=== PATIENT | male | born 1960 | race Caucasian/White ===

== ENCOUNTER 2016-03-01 19:39 | Inpatient (IN) ==
[2016-03-01 20:47] LABS: Hematocrit 40.1 % (37.5-50.1); Hemoglobin 13.8 g/dL (12.9-16.9); Mean Corpuscular HGB Conc 34.4 g/dL (31.6-35.5); Mean Corpuscular Hemoglobin 28.8 pg (28.0-33.3); Mean Corpuscular Volume 83.5 fL (83.0-100.0); Mean Platelet Volume 9.1 fL (9.4-12.4); Platelet Count 323 K/mcL (140-400)
[2016-03-01 20:53] LABS: INR 1.3; Prothrombin Time 13.6 Seconds (9.4-12.1)
[2016-03-01 20:55] LABS: Activated Partial Thrombo Time 28.7 Seconds (26.0-36.0)
[2016-03-01 21:01] LABS: BUN/Creatinine Ratio 11 (6-26); Blood Urea Nitrogen 9 mg/dL (8-26); Calcium 8.9 mg/dL (8.6-10.8); Carbon Dioxide 22 mEq/L (19-29); Chloride 102 mEq/L (98-109); Glucose 113 mg/dL (70-99); Lipase < 4 Units/L (8-78); Osmolality,Calculated 283 (280-300); Potassium 3.5 mEq/L (3.5-4.5); Sodium 137 mEq/L (136-145); eGFR For African Americans > 60 (> 60); eGFR For Non-African Americans > 60 (> 60)
[2016-03-01 21:18] LABS: Basophils # 0.2 K/mcL (0.0-0.2); Eosinophils # 1.2 K/mcL (0.0-0.6); Lymphocytes # 3.4 K/mcL (0.6-4.6); Monocytes # 0.7 K/mcL (0.0-1.3); Neutrophils # 6.5 K/mcL (1.6-8.9)
[2016-03-01 21:20] LABS: Platelet Estimate Normal (Normal)
[2016-03-01] MEDS ORDERED: *HR* HYDROmorphone (PF) 1 MG/ML SYRINGE IV ONE (21:29)
[2016-03-01] MEDS ORDERED: Ondansetron 4 MG/2 ML VIAL IV ONE (21:29)
[2016-03-01] MEDS ORDERED: 0.9 % Sodium Chloride 1,000 ML IVC ONE (21:30)
--- NOTE | 2016-03-01 21:54 | Emergency Department Note ---
Disposition Clinical Impression: Lower gastrointestinal hemorrhage, Ulcerative colitis Abdominal pain Qualifiers: Abdominal location: generalized Qualified Code(s): R10.84 - Generalized abdominal pain Disposition: Admitted As Inpatient Referrals: Pastora Gar CNP [Primary Care Provider] - Forms: Work/School Release, ED Satisfaction Letter GI Bleed HPI - General Chief complaint: ED GI Bleed Stated complaint: Rectal bleed, abd pain Time Seen by Provider: 03/01/16 19:56 Source: patient Limitations: no limitations Nursing Notes Reviewed: Yes Vital Signs Reviewed: Yes - History of Present Illness Pt Subjective Complaint: gross bloody stools Onset (ago): day(s) (5) Consistency: intermittent, Worsening Severity: moderate Improves with: nothing Worsens with: nothing Associated symptoms: Reports: abdominal pain - Related Data Home Medications Medication Instructions Recorded Confirmed Sulfasalazine [Azulfidine] 500 mg PO TID 02/23/15 02/23/15 Previous Rx's Medication Instructions Recorded Hydrocodone/Acetaminophen [[place] 1 tab PO Q4H PRN #15 tab 02/26/16 5-325 Tablet] Peg 3350/Na Sulf,Bicarb,Cl/KCl 240 ml PO Q1-2H #4000 soln.recon 02/26/16 [Golytely Solution] Allergies Allergy/AdvReac Type Severity Reaction Status Date / Time sulfamethoxazole Allergy Rash Verified 02/26/16 19:57 [From Bactrim] trimethoprim [From Bactrim] Allergy Rash Verified 02/26/16 19:57 All systems ED: reviewed and negative except as stated. Constitutional: Denies: fever, weight change Gastrointestinal: Reports: abdominal pain Past Medical History - Past Medical History Source: patient, old records reviewed, nursing notes reviewed Medical history: Reports: cirrhosis, other Surgical history: Reports: no surgical history Psychiatric history: Reports: no psych history - Social History Smoking Status: Never smoker Smokeless Tobacco Status: Yes Alcohol use: Reports: none Drug use: Reports: none Physical Exam - General Limitations: no limitations General appearance: alert, in no apparent distress - Abdominal Exam Abdominal exam: Present: soft, tenderness, normal bowel sounds. Absent: guarding, rebound Abdominal tenderness: Present: diffuse, moderate - Rectal Exam Rectal exam: Present: bloody stool, other (Anal fissures) Course - Consultations Consultation #1: dr. watkins to admit Time: 22:48 Vital Signs Temperature 97.6 F 03/01/16 19:49 Pulse Rate 65 03/01/16 19:49 Respiratory Rate 18 03/01/16 19:49 Blood Pressure 152/85 03/01/16 19:49 O2 Sat by Pulse Oximetry 96 03/01/16 19:49 Temperature 97.6 F 03/01/16 19:49 Pulse Rate 99 03/01/16 22:39 Respiratory Rate 20 03/01/16 22:39 Blood Pressure 115/66 03/01/16 22:39 O2 Sat by Pulse Oximetry 95 03/01/16 22:39 Oxygen Delivery Oxygen Delivery Room Air GI Bleed - Differential Diagnosis Likely: hemorrhoids, gastritis, Lower gastrointestinal hemorrhage, hematochezia , melena, anal fissure - Medical Records Medical records reviewed: Yes I reviewed the patient's medical records. - Lab Data Lab results reviewed: Yes I reviewed the patient's lab results. Result diagrams: 03/01/16 20:42 03/01/16 20:42 Lab Results 03/01/16 03/01/16 03/01/16 Range/Units 20:42 20:42 20:42 WBC 12.1 H (4.3-11.1) K/mcL RBC 4.80 (4.19-5.50) M/mcL Hgb 13.8 (12.9-16.9) g/dL Hct 40.1 (37.5-50.1) % MCV 83.5 (83.0-100.0) fL MCH 28.8 (28.0-33.3) pg MCHC 34.4 (31.6-35.5) g/dL RDW 14.0 (11.5-14.5) % Plt Count 323 (140-400) K/mcL MPV 9.1 L (9.4-12.4) fL Seg Neutrophils % 46.0 % Band Neutrophils % 8.0 H (0-4) % Lymphocytes % 28.0 % Monocytes % 6.0 % Eosinophils % 10.0 % Basophils % 2.0 % Neutrophils # 6.5 (1.6-8.9) K/mcL Lymphocytes # 3.4 (0.6-4.6) K/mcL Monocytes # 0.7 (0.0-1.3) K/mcL Eosinophils # 1.2 H (0.0-0.6) K/mcL Basophils # 0.2 (0.0-0.2) K/mcL Platelet Estimate Normal (Normal) PT 13.6 H (9.4-12.1) Seconds INR 1.3 APTT 28.7 (26.0-36.0) Seconds Sodium 137 (136-145) mEq/L Potassium 3.5 (3.5-4.5) mEq/L Chloride 102 (98-109) mEq/L Carbon Dioxide 22 (19-29) mEq/L BUN 9 (8-26) mg/dL Creatinine 0.79 (0.72-1.25) mg/dL Est GFR ( Amer) > 60 (> 60) Est GFR (Non-Af Amer) > 60 (> 60) BUN/Creatinine Ratio 11 (6-26) Glucose 113 H (70-99) mg/dL Calculated Osmolality 283 (280-300) Calcium 8.9 (8.6-10.8) mg/dL Lipase < 4 L (8-78) Units/L - Radiology Data Radiology results reviewed: Yes I reviewed the patient's radiology results.
[2016-03-01] MEDS ORDERED: MethylPREDNISolone 40 MG/ML VIAL IVP ONE (22:16)
[2016-03-01] MEDS ORDERED: MetroNIDAZOLE 500 MG/100 ML 500 MG/100 ML BAG IVPB ONE (22:46)
--- NOTE | 2016-03-01 23:27 | Internal Med History&Physical ---
Date of Encounter: 03/02/16 Time of Encounter: 23:25 Assessment and Plan (1) Lower gastrointestinal hemorrhage Current visit: Yes Status: Acute BRBPR with severe abdominal pain intermittent the past 2-3 weeks, more frequently the past few days. Likely secondary to Ulcerative Colitis. Hgb 13.8, will trend. Started on Flagyl and Cipro. IV steroids 60mg daily. Clear liquid diet. Dr. Otero will need to be contacted Thursday when GI service returns, consult has been ordered. (2) Ulcerative colitis Current visit: Yes Status: Acute See plan above. Qualifiers: Ulcerative colitis location: unspecified ulcerative colitis location Digestive disease complication type: with rectal bleeding Qualified Code(s): K51.911 - Ulcerative colitis, unspecified with rectal bleeding (3) Chronic low back pain Current visit: Yes Status: Chronic Chronic low back pain, schedule to see Dr. Leal on 03/04/16. Qualifiers: Back pain laterality: unspecified Sciatica presence: with sciatica Sciatica laterality: sciatica of left side Qualified Code(s): M54.42 - Lumbago with sciatica, left side; G89.29 - Other chronic pain (4) Tobacco chew use Current visit: Yes Status: Chronic Chews approx 1 can per day. Denies any history of smoking tobacco. (5) DVT prophylaxis Current visit: Yes Status: Acute Heparin SQ Internal Medicine - H&P: HPI Chief complaint: Abdominal pain Admitted From: Emergency Dept Plans for Post Hospital Care: Home History of present illness: Mr. Sheets is a 55 year old male that presented to the ED for abdominal pain for 2-3 weeks with ongoing hematochezia. Patient has a pertinent history of Ulcerative Colitis, followed by Dr. Dayday Richardson in [place]. Patient denies any past hospitalization for UC other than when he was initially diagnosed approx 3 years ago. He has been maintaining on sulfasalazine as outpatient. Patient notes recent GI upset, feeling like he needs to pass a large BM, with severe abdominal cramping. He was seen in the ED on 02/24/16 and 02/26/16 for continuing abdominal pain, abdominal CT neg, given GoLytely for constipation and scheduled follow up with Surgery. Patient states at this point he is having the episodes of abdominal cramping, bleeding, with flatulence and stool approximately 10 times a day. States the pain in his lower abdomen is so tender that he hurts to sit up due to the increased pressure of his stomach. Patient also notes a fever yesterday of 101F with chills. He denies chest pain, shortness of breath. Does state he has chronic back pain, schedule to see Dr. Leal on 03/04/16. Patient received Dilaudid in the ED reducing his abdominal pain from 10/10 to 4/ 10 in severity. Past Med Surg Social Fam HX - Past Medical History Medical history: cirrhosis, other Psychiatric history: no psych history - Past Surgical History Surgical History: no surgical history - Social History Smoking Status: Never smoker Smokeless Tobacco Status: Yes Alcohol use: none Drug use: none - Family History Father Name: Davis Sheets Age: 75 Living Status: Still Living Hx Family Cardiac Disorders: No Hx Family Respiratory Disorders: No Hx Family Cancer: Yes Hx Family GI Disorders: No Hx Family Genitourinary Disorders: No Hx Family Endocrine Disorder: No Hx Family Musculoskeletal Disorders: No Hx Family Neuromuscular Disorders: No Hx Family Neurologic Disorders: No Hx Family HEENT Disorders: No Hx Family Autoimmune Disorders: No Hx Family Reproductive Disorders: No Hx Family Psychosocial Disorders: No Hx Family Medical Disorders: No Brother Cause of : CVA Hx Family Endocrine Disorder: Yes (DM) Internal Medicine - H&P: Meds Sulfasalazine [Azulfidine] 500 mg PO TID 02/23/15 [History] Hydrocodone/Acetaminophen [[place] 5-325 Tablet] 1 tab PO Q4H PRN #15 tab [Rx] Peg 3350/Na Sulf,Bicarb,Cl/KCl [Golytely Solution] 240 ml PO Q1-2H #4000 soln.recon 02/26/16 [Rx] Allergies sulfamethoxazole [From Bactrim] Allergy (Verified 02/26/16 19:57) Rash trimethoprim [From Bactrim] Allergy (Verified 02/26/16 19:57) Rash All Systems PM: A 10-system review of systems was performed and is negative for pertinent findings except as documented above in the HPI. - Constitutional Constitutional: chills, fatigue, fever(s), lethargy, malaise - EENT Eyes: no loss of vision Nose, mouth and throat: no dysphagia, no neck pain - Cardiovascular Cardiovascular ROS IM: no chest pain, no dyspnea, no syncope - Respiratory Respiratory: no cough, no dyspnea - Gastrointestinal Gastrointestinal: abdominal pain, bloating, excessive flatus, fecal incontinence , hematochezia (with frequent small amounts of stool), vomiting - Genitourinary Genitourinary ROS male: no dysuria, no flank pain - Musculoskeletal Musculoskeletal ROS IM: back pain, numbness, tingling - Integumentary Integumentary IM: no erythema, no rash - Neurological Neurological ROS: no confusion, no dizziness - Constitutional Vitals: Temp Pulse Resp BP Pulse Ox 97.6 F 99 18 115/66 95 03/01/16 19:49 03/01/16 22:39 03/01/16 23:05 03/01/16 23:05 03/01/16 22:39 General appearance: Present: cooperative, mild distress, A&O X 3, no acute distress, answers questions appropriately - Head Head exam: Present: atraumatic, normocephalic - Eye Eye exam: Present: EOMI, PERRL, conjuntiva pink, sclera anicteric Pupils: Present: PERRL - Neck Neck exam general surgery: Present: full ROM, supple, trachea midline - Respiratory Respiratory exam: Present: CTAB. Absent: accessory muscle use, chest wall tenderness, rales, rhonchi, wheezes - Cardiovascular Cardiovascular exam: Present: RRR, +S1, +S2. Absent: diastolic murmur, gallop, rubs, systolic murmur - GI/Abdominal GI/Abdominal exam: Present: distended, normal bowel sounds, soft, tenderness ( tender to palpation in the LUQ and acutely tender across the underside of distended abd (LLQ, RLQ)), no peritoneal signs. Absent: guarding - Extremities Exam Extremities exam: Present: warm. Absent: calf tenderness, cyanotic, pedal edema - Neurological Exam Neurological exam: Present: alert, oriented X3, no focal deficits. Absent: facial droop, speech deficit - Skin Skin exam: Present: dry, intact Internal Med - H&P Results - Labs CBC & Chem 7: 03/01/16 20:42 03/01/16 20:42
[2016-03-01] MEDS ORDERED: Ondansetron 4 MG/2 ML VIAL IVP PRN (23:42)
[2016-03-01] MEDS ORDERED: Naloxone 0.4 MG/ML INJ IVP PRN (23:42)
[2016-03-02] MEDS ORDERED: MethylPREDNISolone 40 MG/ML VIAL IVP SCH
[2016-03-02] MEDS: 0.9 % Sodium Chloride 1,000 ML IVC SCH ×3 (00:05→17:07)
[2016-03-02] MEDS: MetroNIDAZOLE 500 MG/100 ML 500 MG/100 ML BAG IVPB SCH ×3 (00:06→17:08)
[2016-03-02] MEDS ORDERED: methylPREDNISolone 125 MG/2 ML VIAL IVP ONE (00:55)
[2016-03-02] MEDS ORDERED: Acetaminophen 325 MG TABLET PO PRN (00:58)
[2016-03-02] MEDS ORDERED: MethylPREDNISolone 40 MG/ML VIAL IVP ONE (01:21)
[2016-03-02 05:49] LABS: Basophils % 0.3 %; Eosinophils % 0.1 %; Hematocrit 38.8 % (37.5-50.1); Immature Granulocytes % 0.6 % (0-4); Lymphocytes # 0.5 K/mcL (0.6-4.6); Lymphocytes % 4.9 %; Mean Corpuscular HGB Conc 33.5 g/dL (31.6-35.5); Mean Corpuscular Hemoglobin 28.6 pg (28.0-33.3); Mean Corpuscular Volume 85.5 fL (83.0-100.0); Mean Platelet Volume 9.4 fL (9.4-12.4); Monocytes # 0.3 K/mcL (0.0-1.3); Monocytes % 3.3 %; Neutrophils # 8.5 K/mcL (1.6-8.9); Platelet Count 289 K/mcL (140-400); Red Blood Count 4.54 M/mcL (4.19-5.50); Red Cell Distribution Width 13.9 % (11.5-14.5); Segmented Neutrophils % 90.8 %
[2016-03-02 05:55] LABS: INR 1.3; Prothrombin Time 14.4 Seconds (9.4-12.1)
[2016-03-02 05:57] LABS: Activated Partial Thrombo Time 29.1 Seconds (26.0-36.0)
[2016-03-02] MEDS ORDERED: *HR* Heparin 5,000 UNIT/ML VIAL SQ SCH ×2 (06:00→08:00)
[2016-03-02 06:02] LABS: BUN/Creatinine Ratio 14 (6-26); Blood Urea Nitrogen 10 mg/dL (8-26); Calcium 8.3 mg/dL (8.6-10.8); Carbon Dioxide 20 mEq/L (19-29); Chloride 106 mEq/L (98-109); Glucose 157 mg/dL (70-99); Osmolality,Calculated 286 (280-300); Potassium 3.4 mEq/L (3.5-4.5); Sodium 137 mEq/L (136-145); eGFR For African Americans > 60 (> 60); eGFR For Non-African Americans > 60 (> 60)
[2016-03-02 06:11] LABS: Platelet Estimate Normal (Normal)
[2016-03-02] MEDS: Pantoprazole 40 MG VIAL IVP SCH ×2 (07:33→17:09)
[2016-03-02] MEDS: MethylPREDNISolone 40 MG/ML VIAL IVP SCH (07:34)
[2016-03-02] MEDS: sulfaSALAzine 500 MG TABLET PO SCH ×3 (07:35→20:56)
[2016-03-02] MEDS: *HR* HYDROcodone/Acet 5/325 mg TABLET PO PRN ×2 (07:57→20:55)
--- NOTE | 2016-03-02 15:41 | Internal Med Progress Note ---
Date of Encounter: 03/02/16 Time of Encounter: 10:00 - Assessment and plan (1) Abdominal pain Current Visit: Yes Status: Acute Assessment and plan: Consider ulcerative colitis flare. Will give IV fluid, IV antibiotic, steroid treatment. Continue sulfasalazine. Qualifiers: Abdominal location: generalized Qualified Code(s): R10.84 - Generalized abdominal pain (2) Lower gastrointestinal hemorrhage Current Visit: Yes Status: Acute Assessment and plan: Possibly due to ulcerative colitis flare. We will closely monitor vitals and hemoglobin change (3) Ulcerative colitis Current Visit: Yes Status: Acute Assessment and plan: Treatment and plan as above Qualifiers: Ulcerative colitis location: unspecified ulcerative colitis location Digestive disease complication type: with rectal bleeding Qualified Code(s): K51.911 - Ulcerative colitis, unspecified with rectal bleeding (4) DVT prophylaxis Current Visit: Yes Status: Acute Assessment and plan: EPCD. No anticoagulation because patient has rectal bleeding. - Time Spent With Patient 25 - 35 minutes - Subjective Interval history: Patient is a 55-year-old male admitted for abdominal pain and rectal bleeding. His past medical history is significant for Ulcerative colitis. I saw and examined the patient today. He still complaining of abdominal pain, no bowel movement since last night. No nausea, no vomiting. Denies lightheaded. Vital signs stable. Hemoglobin is stable. We will continue antibiotic, IV steroids, and sulfasalazine. - Constitutional Vitals: Temp Pulse Resp BP Pulse Ox 98.2 F 75 17 123/71 98 03/02/16 11:25 03/02/16 11:25 03/02/16 11:25 03/02/16 11:25 03/02/16 11:25 General appearance: Present: cooperative, mild distress, A&O X 3, no acute distress, answers questions appropriately - Head Head exam: Present: atraumatic, normocephalic - Eye Eye exam: Present: PERRL, conjuntiva pink, sclera anicteric Pupils: Present: PERRL - Neck Neck exam general surgery: Present: supple, trachea midline. Absent: lymphadenopathy - Respiratory Respiratory exam: Present: CTAB. Absent: accessory muscle use, rales, rhonchi, wheezes - Cardiovascular Cardiovascular exam: Present: RRR, +S1, +S2. Absent: diastolic murmur, gallop, rubs, systolic murmur - GI/Abdominal GI/Abdominal exam: Present: normal bowel sounds, soft, tenderness (Mild tenderness in lower abdominal area, no rebound or guarding), no peritoneal signs. Absent: distended - Extremities Exam Extremities exam: Present: warm, radial pulses palpable and symetrical. Absent : calf tenderness, cyanotic, pedal edema - Neurological Exam Neurological exam: Present: CN II-XII intact, oriented X3, no focal deficits. Absent: pronater drift, facial droop, speech deficit - Skin Skin exam: Present: dry, intact Internal Medicine: Result - Labs CBC & Chem 7: 03/02/16 05:35 03/02/16 05:35 Labs: Short CBC 03/02/16 Range/Units 05:35 WBC 9.4 (4.3-11.1) K/mcL Hgb 13.0 (12.9-16.9) g/dL Hct 38.8 (37.5-50.1) % Plt Count 289 (140-400) K/mcL Neutrophils # 8.5 (1.6-8.9) K/mcL BMP 03/02/16 05:35 Sodium 137 Potassium 3.4 L Chloride 106 Carbon Dioxide 20 BUN 10 Creatinine 0.74 Glucose 157 H Calcium 8.3 L - ABG Interpretation ABG results: PT/INR, D-dimer PT 14.4 Seconds (9.4-12.1) H 03/02/16 05:35 - VTE Reasons for not Prescribing Prophylaxis: Treatment not Indicated - Low risk for VTE Consult Discharge Plan - Plan Referrals: Pastora Gar HAND PATTERN MARKER [Primary Care Provider] -
[2016-03-02] MEDS ORDERED: Potassium Chloride Elixir 20 MEQ/15 ML UDC PO ONE (16:23)
[2016-03-03] MEDS: *HR* HYDROmorphone (PF) 1 MG/ML SYRINGE IVP PRN ×4 (00:36→21:17)
[2016-03-03] MEDS: MetroNIDAZOLE 500 MG/100 ML 500 MG/100 ML BAG IVPB SCH ×4 (00:37→23:55)
[2016-03-03 05:30] LABS: Hematocrit 38.7 % (37.5-50.1); Hemoglobin 12.8 g/dL (12.9-16.9); Lymphocytes # 1.1 K/mcL (0.6-4.6); Mean Corpuscular HGB Conc 33.1 g/dL (31.6-35.5); Mean Corpuscular Hemoglobin 28.8 pg (28.0-33.3); Mean Platelet Volume 9.7 fL (9.4-12.4); Platelet Count 325 K/mcL (140-400); Red Blood Count 4.45 M/mcL (4.19-5.50); Red Cell Distribution Width 14.1 % (11.5-14.5)
[2016-03-03 05:51] LABS: BUN/Creatinine Ratio 13 (6-26); Blood Urea Nitrogen 10 mg/dL (8-26); Calcium 8.1 mg/dL (8.6-10.8); Carbon Dioxide 24 mEq/L (19-29); Chloride 108 mEq/L (98-109); Glucose 94 mg/dL (70-99); Osmolality,Calculated 291 (280-300); Potassium 3.2 mEq/L (3.5-4.5); Sodium 141 mEq/L (136-145); eGFR For African Americans > 60 (> 60); eGFR For Non-African Americans > 60 (> 60)
[2016-03-03 06:07] LABS: Neutrophils # 6.7 K/mcL (1.6-8.9); Platelet Estimate Normal (Normal)
[2016-03-03] MEDS: 0.9 % Sodium Chloride 1,000 ML IVC SCH ×3 (06:45→17:26)
[2016-03-03] MEDS: Pantoprazole 40 MG VIAL IVP SCH ×2 (06:53→17:26)
[2016-03-03] MEDS ORDERED: Potassium Chloride Elixir 20 MEQ/15 ML UDC PO ONE (07:27)
[2016-03-03] MEDS: MethylPREDNISolone 40 MG/ML VIAL IVP SCH (09:28)
[2016-03-03] MEDS: *HR* HYDROcodone/Acet 5/325 mg TABLET PO PRN ×2 (09:28→17:25)
[2016-03-03] MEDS: sulfaSALAzine 500 MG TABLET PO SCH ×3 (09:28→21:17)
--- NOTE | 2016-03-03 09:46 | Gastroenterology Consult Note ---
<Fara Cat - Last Filed: 03/03/16 14:01> Date of Encounter: 03/03/16 Time of Encounter: 11:30 - Assessment and plan (1) Hematochezia Current Visit: Yes Status: Acute Assessment and plan: UC flare, evidence of anal fissure with underlying constipation symptoms. Continue stool softener, miralax bid PRN. Patient continues to have blood per rectum today. His hgb has dropped from 15.1 to 12.8 during his hospital course. (2) Hepatic steatosis Current Visit: Yes Status: Chronic Assessment and plan: mild elevation of AST, OTPT w/u. (3) Abdominal pain Current Visit: Yes Status: Chronic Assessment and plan: 2ndary to acute UC flare, continue steroids/atbs. Patient is improving somewhat , but continues to have hematochezia, monitor hgb. Qualifiers: Abdominal location: generalized Qualified Code(s): R10.84 - Generalized abdominal pain (4) Ulcerative colitis Current Visit: Yes Status: Chronic Assessment and plan: Currently on sulfasalazine. Return to Dr. Richardson for further treatment at discharge. Continue daily steroids and atbs. Qualifiers: Ulcerative colitis location: unspecified ulcerative colitis location Digestive disease complication type: with rectal bleeding Qualified Code(s): K51.911 - Ulcerative colitis, unspecified with rectal bleeding - Time Spent With Patient Total time spent is greater than 50% in coordination of care (as documented) at patient's floor/unit and/or counseling patient: less than 15 minutes GI History of Present Illness - Data of Consult Patient: new to practice Consult date: 03/03/16 Requesting Physician: Carlota Villa MD - Consult Narrative Reason for consult: hematochezia, hx of UC History of present illness: Mr. Sheets is a 55 year old male that presented to the ED for abdominal pain for 2-3 weeks with ongoing hematochezia. Patient has a pertinent history of Ulcerative Colitis, followed by Dr. Dayday Richardson in [place]. Patient denies any past hospitalization for UC other than when he was initially diagnosed approx 3 years ago. He has been maintaining on sulfasalazine as outpatient. Patient notes recent GI upset, feeling like he needs to pass a large BM, with severe abdominal cramping. He was seen in the ED on 02/24/16 and 02/26/16 for continuing abdominal pain, abdominal CT neg, given GoLytely for constipation and scheduled follow up with Surgery. Patient states at this point he is having the episodes of abdominal cramping, bleeding, with flatulence and stool approximately 10 times a day. States the pain in his lower abdomen is so tender that he hurts to sit up due to the increased pressure of his stomach. Patient also notes a fever yesterday of 101F with chills. He denies chest pain, shortness of breath. ESR 43, CRP 121, will check fecal calpro. Currently on sulfasalazine and daily steroids, with Cipro/Flagyl. Patient states that he continues to have hematochezia, very small stool, brown in color. Blood is bright red. He states he feels very weak. Admits abdominal cramping and fever, urgency and incontinence. Colonoscopy: 1-2 years ago - [facility] EGD: ? Past Med Surg Social Fam HX - Past Medical History Medical history: cirrhosis, other Psychiatric history: no psych history - Past Surgical History Surgical History: no surgical history - Social History Smoking Status: Never smoker Smokeless Tobacco Status: Yes Alcohol use: none Drug use: none - Family History Father Name: Davis Sheets Age: 75 Living Status: Still Living Hx Family Cardiac Disorders: No Hx Family Respiratory Disorders: No Hx Family Cancer: Yes Hx Family GI Disorders: No Hx Family Genitourinary Disorders: No Hx Family Endocrine Disorder: No Hx Family Musculoskeletal Disorders: No Hx Family Neuromuscular Disorders: No Hx Family Neurologic Disorders: No Hx Family HEENT Disorders: No Hx Family Autoimmune Disorders: No Hx Family Reproductive Disorders: No Hx Family Psychosocial Disorders: No Hx Family Medical Disorders: No Brother Cause of : CVA Hx Family Endocrine Disorder: Yes (DM) - Gastrointestinal NSAID use: None noted Anticoagulation Use: None Number of BM Per Day: many Gastrointestinal: Present: abdominal pain, change in bowel habits, constipation - Constitutional Constitutional: fatigue, fever(s) - EENT Eyes: as per HPI Ears: Present: as per HPI Nose, mouth and throat: Present: as per HPI - Cardiovascular Cardiovascular ROS: Present: as per HPI - Respiratory Respiratory IM: Present: as per HPI - Neurological ROS Neurological GI: Present: weakness - Hematologic/Lymphatic Hematologic/Lymphatic pediatric: Present: as per HPI - Musculoskeletal Musculoskeletal ROS GI: Present: as per HPI - Integumentary Integumentary GI: Present: as per HPI - Psychiatric ROS Psychiatric GI: Present: as per HPI - Endocrine Endocrine IM: Present: as per HPI - Constitutional Vitals: Temp Pulse Resp BP Pulse Ox 98.6 F 84 14 107/68 98 03/03/16 09:27 03/03/16 07:17 03/03/16 07:17 03/03/16 07:17 03/03/16 07:17 Results - Labs CBC & Chem 7: 03/03/16 04:54 03/03/16 04:54 Labs: Last Result ESR 43 mm/hr (0-10) H 03/02/16 05:35 Calcium 8.1 mg/dL (8.6-10.8) L 03/03/16 04:54 C-Reactive Protein 121 mg/L (Less than 5) H 03/02/16 05:35 Entire Visit Hgb 12.8 g/dL (12.9-16.9) L 03/03/16 04:54 Hct 38.7 % (37.5-50.1) 03/03/16 04:54 PT 14.4 Seconds (9.4-12.1) H 03/02/16 05:35 Lipase < 4 Units/L (8-78) L 03/01/16 20:42 - ABG ABG results: PT/INR, D-dimer PT 14.4 Seconds (9.4-12.1) H 03/02/16 05:35 Consult Discharge Plan - Plan Referrals: Pastora Gar, [employer] [Primary Care Provider] - <Reymundo Otero - Last Filed: 03/03/16 18:29> Date of Encounter: 03/03/16 Time of Encounter: 18:00 - Time Spent With Patient Total time spent is greater than 50% in coordination of care (as documented) at patient's floor/unit and/or counseling patient: GI History of Present Illness - Data of Consult Requesting Physician: Carlota Villa MD - Consult Narrative History of present illness: Mr. Sheets is a 55 year old male - Constitutional Vitals: Temp Pulse Resp BP Pulse Ox 97.6 F 89 16 127/81 97 03/03/16 14:19 03/03/16 14:19 03/03/16 14:19 03/03/16 14:19 03/03/16 14:19 Results - Labs CBC & Chem 7: 03/03/16 04:54 03/03/16 04:54 Labs: Last Result ESR 43 mm/hr (0-10) H 03/02/16 05:35 Calcium 8.1 mg/dL (8.6-10.8) L 03/03/16 04:54 C-Reactive Protein 121 mg/L (Less than 5) H 03/02/16 05:35 Entire Visit Hgb 12.8 g/dL (12.9-16.9) L 03/03/16 04:54 Hct 38.7 % (37.5-50.1) 03/03/16 04:54 PT 14.4 Seconds (9.4-12.1) H 03/02/16 05:35 Lipase < 4 Units/L (8-78) L 03/01/16 20:42 - ABG ABG results: PT/INR, D-dimer PT 14.4 Seconds (9.4-12.1) H 03/02/16 05:35 - Attending Attestation I examined this patient and my medical decision-making was reviewed with the REGIONAL TRAINING MANAGER/PA/Advanced Practice Nurse/Resident Physician. I agree with the documented findings, disposition and treatment plan as described except to the extent set forth below. Patient with possible UC flare with bleeding. Colonoscopy in the morning.
--- NOTE | 2016-03-03 16:27 | Internal Med Progress Note ---
Date of Encounter: 03/03/16 Time of Encounter: 09:00 - Assessment and plan (1) Abdominal pain Current Visit: Yes Status: Chronic Assessment and plan: Consider ulcerative colitis flare. Will give IV fluid, IV antibiotic, steroid treatment. Continue sulfasalazine. Qualifiers: Abdominal location: generalized Qualified Code(s): R10.84 - Generalized abdominal pain (2) Lower gastrointestinal hemorrhage Current Visit: Yes Status: Acute Assessment and plan: Possibly due to ulcerative colitis flare. We will closely monitor vitals and hemoglobin change. GI consult appreciated (3) Ulcerative colitis Current Visit: Yes Status: Chronic Assessment and plan: Treatment and plan as above Qualifiers: Ulcerative colitis location: unspecified ulcerative colitis location Digestive disease complication type: with rectal bleeding Qualified Code(s): K51.911 - Ulcerative colitis, unspecified with rectal bleeding (4) DVT prophylaxis Current Visit: Yes Status: Acute Assessment and plan: EPCD. No anticoagulation because patient has rectal bleeding. - Time Spent With Patient 25 - 35 minutes - Subjective Interval history: Patient is a 55-year-old male admitted for abdominal pain and rectal bleeding. His past medical history is significant for Ulcerative colitis. I saw and examined the patient today. He still complaining of abdominal pain, twice bloody bowel movement since yesterday. No nausea, no vomiting. Denies lightheaded. Vital signs stable. Hemoglobin is slightly drop. GI consult appreciated. We will continue antibiotic, IV steroids, and sulfasalazine. - Constitutional Vitals: Temp Pulse Resp BP Pulse Ox 97.6 F 89 16 127/81 97 03/03/16 14:19 03/03/16 14:19 03/03/16 14:19 03/03/16 14:19 03/03/16 14:19 General appearance: Present: cooperative, mild distress, A&O X 3, no acute distress, answers questions appropriately - Head Head exam: Present: atraumatic, normocephalic - Eye Eye exam: Present: PERRL, conjuntiva pink, sclera anicteric Pupils: Present: PERRL - Neck Neck exam general surgery: Present: supple, trachea midline. Absent: lymphadenopathy - Respiratory Respiratory exam: Present: CTAB. Absent: accessory muscle use, rales, rhonchi, wheezes - Cardiovascular Cardiovascular exam: Present: RRR, +S1, +S2. Absent: diastolic murmur, gallop, rubs, systolic murmur - GI/Abdominal GI/Abdominal exam: Present: normal bowel sounds, soft, tenderness, no peritoneal signs. Absent: distended - Extremities Exam Extremities exam: Present: warm, radial pulses palpable and symetrical. Absent : calf tenderness, cyanotic, pedal edema - Neurological Exam Neurological exam: Present: CN II-XII intact, oriented X3, no focal deficits. Absent: pronater drift, facial droop, speech deficit - Skin Skin exam: Present: dry, intact Internal Medicine: Result - Labs CBC & Chem 7: 03/03/16 04:54 03/03/16 04:54 Labs: Short CBC 03/03/16 Range/Units 04:54 WBC 9.1 (4.3-11.1) K/mcL Hgb 12.8 L (12.9-16.9) g/dL Hct 38.7 (37.5-50.1) % Plt Count 325 (140-400) K/mcL Neutrophils # 6.7 (1.6-8.9) K/mcL BMP 03/03/16 04:54 Sodium 141 Potassium 3.2 L Chloride 108 Carbon Dioxide 24 BUN 10 Creatinine 0.77 Glucose 94 Calcium 8.1 L - ABG Interpretation ABG results: PT/INR, D-dimer PT 14.4 Seconds (9.4-12.1) H 03/02/16 05:35 - VTE Reasons for not Prescribing Prophylaxis: Treatment not Indicated - Low risk for VTE Documentation of Mechanical Device: Intermittent pneumatic compression device Consult Discharge Plan - Plan Referrals: Pastora Gar CNP [Primary Care Provider] -
[2016-03-03] MEDS ORDERED: SODIUM CHLORIDE/NAHCO3/KCL/PEG 4,000 ML SOLN.RECON PO ONE (17:57)
[2016-03-04] MEDS: *HR* HYDROcodone/Acet 5/325 mg TABLET PO PRN ×3 (00:03→22:36)
[2016-03-04] MEDS: *HR* HYDROmorphone (PF) 1 MG/ML SYRINGE IVP PRN ×3 (01:41→18:23)
[2016-03-04 05:09] LABS: Basophils % 0.4 %; Eosinophils % 0.4 %; Hematocrit 35.7 % (37.5-50.1); Hemoglobin 11.7 g/dL (12.9-16.9); Lymphocytes # 1.1 K/mcL (0.6-4.6); Lymphocytes % 13.9 %; Mean Corpuscular HGB Conc 32.8 g/dL (31.6-35.5); Mean Corpuscular Hemoglobin 27.7 pg (28.0-33.3); Mean Corpuscular Volume 84.6 fL (83.0-100.0); Mean Platelet Volume 9.2 fL (9.4-12.4); Monocytes # 1.2 K/mcL (0.0-1.3); Monocytes % 15.4 %; Neutrophils # 5.4 K/mcL (1.6-8.9); Platelet Count 326 K/mcL (140-400); Red Blood Count 4.22 M/mcL (4.19-5.50); Red Cell Distribution Width 14.2 % (11.5-14.5); Segmented Neutrophils % 68.9 %
[2016-03-04 05:20] LABS: BUN/Creatinine Ratio 10 (6-26); Blood Urea Nitrogen 7 mg/dL (8-26); Calcium 7.8 mg/dL (8.6-10.8); Carbon Dioxide 23 mEq/L (19-29); Chloride 111 mEq/L (98-109); Glucose 91 mg/dL (70-99); Osmolality,Calculated 290 (280-300); Potassium 3.1 mEq/L (3.5-4.5); Sodium 141 mEq/L (136-145); eGFR For African Americans > 60 (> 60); eGFR For Non-African Americans > 60 (> 60)
[2016-03-04 05:33] LABS: Platelet Estimate Normal (Normal); Reactive Lymphocytes Present (Not Present)
[2016-03-04] MEDS: Pantoprazole 40 MG VIAL IVP SCH ×2 (05:58→18:13)
[2016-03-04] MEDS ORDERED: Potassium Chloride Elixir 20 MEQ/15 ML UDC PO ONE (08:06)
--- NOTE | 2016-03-04 08:41 | Gastroenterology Progress Note ---
Date of Encounter: 03/04/16 Time of Encounter: 10:05 - Assessment and plan (1) Hematochezia Current Visit: Yes Status: Acute Assessment and plan: UC flare, evidence of anal fissure with underlying constipation symptoms. Continue stool softener, miralax bid PRN. Patient continues to have small amount blood per rectum today. His hgb has dropped from 15.1 to 11.7 during his hospital course. Plan for Cscope evaluation today. (2) Hepatic steatosis Current Visit: Yes Status: Chronic Assessment and plan: mild elevation of AST, OTPT w/u. (3) Abdominal pain Current Visit: Yes Status: Chronic Assessment and plan: Likely 2ndary to acute UC flare, continue steroids/atbs. Proceed with colonoscopy evaluation today. Hgb fell overnight to 11.7. Improving during hospital course per the patient. Qualifiers: Abdominal location: generalized Qualified Code(s): R10.84 - Generalized abdominal pain (4) Ulcerative colitis Current Visit: Yes Status: Chronic Assessment and plan: Currently on sulfasalazine. Return to Dr. Richardson for further treatment at discharge. Continue daily steroids and atbs. Qualifiers: Ulcerative colitis location: unspecified ulcerative colitis location Digestive disease complication type: with rectal bleeding Qualified Code(s): K51.911 - Ulcerative colitis, unspecified with rectal bleeding - Time Spent With Patient Total time spent is greater than 50% in coordination of care (as documented) at patient's floor/unit and/or counseling patient: less than 15 minutes - Subjective Interval history: Patient is a 55-year-old male admitted for abdominal pain and rectal bleeding. His past medical history is significant for Ulcerative colitis. Patient examined at bedside, resting comfortably. States completed bowel prep, not yet clear, but close. Minor amount of bleeding noted during the bowel prep. Abdominal pain has improved, but still apparent. He feels fatigued. - Constitutional Vitals: Temp Pulse Resp BP Pulse Ox 98.0 F 93 16 101/61 94 L 03/04/16 07:17 03/04/16 07:17 03/04/16 07:17 03/04/16 07:17 03/04/16 07:17 General appearance: Present: cooperative, A&O X 3, no acute distress, answers questions appropriately - Head Head exam: Present: atraumatic, normocephalic - Eye Eye exam: Present: normal appearance, sclera anicteric - ENT ENT exam: Present: mucous membranes moist - Neck Neck exam general surgery: Present: normal inspection, trachea midline - Respiratory Respiratory exam: Present: CTAB - Cardiovascular Cardiovascular exam: Present: RRR, +S1, +S2 - GI/Abdominal GI/Abdominal exam: Present: soft, tenderness, no peritoneal signs - Rectal Rectal exam: Present: deferred - Extremities Exam Extremities exam: Present: warm - Neurological Exam Neurological exam: Present: no focal deficits - Psychiatric Psychiatric exam: Present: normal affect, normal mood - Skin Skin exam: Present: dry, intact, normal color, warm Results - Labs CBC & Chem 7: 03/04/16 04:56 03/04/16 04:56 Labs: Last Result ESR 43 mm/hr (0-10) H 03/02/16 05:35 Calcium 7.8 mg/dL (8.6-10.8) L 03/04/16 04:56 C-Reactive Protein 121 mg/L (Less than 5) H 03/02/16 05:35 Entire Visit Hgb 11.7 g/dL (12.9-16.9) L 03/04/16 04:56 Hct 35.7 % (37.5-50.1) L 03/04/16 04:56 PT 14.4 Seconds (9.4-12.1) H 03/02/16 05:35 Lipase < 4 Units/L (8-78) L 03/01/16 20:42 - ABG ABG results: PT/INR, D-dimer PT 14.4 Seconds (9.4-12.1) H 03/02/16 05:35 - VTE Reasons for not Prescribing Prophylaxis: Treatment not Indicated - Low risk for VTE Documentation of Mechanical Device: Intermittent pneumatic compression device Consult Discharge Plan - Plan Referrals: Pastora Gar, GRAIN WAFER MACHINE OPERATOR [Primary Care Provider] -
[2016-03-04] MEDS: sulfaSALAzine 500 MG TABLET PO SCH ×3 (09:50→21:31)
[2016-03-04] MEDS: MetroNIDAZOLE 500 MG/100 ML 500 MG/100 ML BAG IVPB SCH ×2 (09:56→18:12)
[2016-03-04] MEDS: MethylPREDNISolone 40 MG/ML VIAL IVP SCH (09:57)
--- NOTE | 2016-03-04 15:47 | Internal Med Progress Note ---
Date of Encounter: 03/04/16 Time of Encounter: 09:00 - Assessment and plan (1) Abdominal pain Current Visit: Yes Status: Chronic Assessment and plan: Consider ulcerative colitis flare. Will give IV fluid, IV antibiotic, steroid treatment. Continue sulfasalazine. Plan for colonoscopy today Qualifiers: Abdominal location: generalized Qualified Code(s): R10.84 - Generalized abdominal pain (2) Lower gastrointestinal hemorrhage Current Visit: Yes Status: Acute Assessment and plan: Possibly due to ulcerative colitis flare. We will closely monitor vitals and hemoglobin change. GI consult appreciated. Plan for colonoscopy today (3) Ulcerative colitis Current Visit: Yes Status: Chronic Assessment and plan: Treatment and plan as above Qualifiers: Ulcerative colitis location: unspecified ulcerative colitis location Digestive disease complication type: with rectal bleeding Qualified Code(s): K51.911 - Ulcerative colitis, unspecified with rectal bleeding (4) DVT prophylaxis Current Visit: Yes Status: Acute Assessment and plan: EPCD. No anticoagulation because patient has rectal bleeding. - Time Spent With Patient 25 - 35 minutes - Subjective Interval history: Patient is a 55-year-old male admitted for abdominal pain and rectal bleeding. His past medical history is significant for Ulcerative colitis. I saw and examined the patient today. He still complaining of abdominal pain but feels much less. No nausea, no vomiting. Denies lightheaded. Vital signs stable. Hemoglobin is slightly drop. GI consult on case and plan for colonoscopy. We will continue antibiotic, IV steroids, and sulfasalazine. - Constitutional Vitals: Temp Pulse Resp BP Pulse Ox 97.7 F 79 14 104/64 94 L 03/04/16 10:59 03/04/16 10:59 03/04/16 10:59 03/04/16 10:59 03/04/16 10:59 General appearance: Present: cooperative, mild distress, A&O X 3, no acute distress, answers questions appropriately - Head Head exam: Present: atraumatic, normocephalic - Eye Eye exam: Present: PERRL, conjuntiva pink, sclera anicteric Pupils: Present: PERRL - Neck Neck exam general surgery: Present: supple, trachea midline. Absent: lymphadenopathy - Respiratory Respiratory exam: Present: CTAB. Absent: accessory muscle use, rales, rhonchi, wheezes - Cardiovascular Cardiovascular exam: Present: RRR, +S1, +S2. Absent: diastolic murmur, gallop, rubs, systolic murmur - GI/Abdominal GI/Abdominal exam: Present: normal bowel sounds, soft, tenderness, no peritoneal signs. Absent: distended - Extremities Exam Extremities exam: Present: warm, radial pulses palpable and symetrical. Absent : calf tenderness, cyanotic, pedal edema - Neurological Exam Neurological exam: Present: CN II-XII intact, oriented X3, no focal deficits. Absent: pronater drift, facial droop, speech deficit - Skin Skin exam: Present: dry, intact Internal Medicine: Result - Labs CBC & Chem 7: 03/04/16 04:56 03/04/16 04:56 Labs: Short CBC 03/04/16 Range/Units 04:56 WBC 7.8 (4.3-11.1) K/mcL Hgb 11.7 L (12.9-16.9) g/dL Hct 35.7 L (37.5-50.1) % Plt Count 326 (140-400) K/mcL Neutrophils # 5.4 (1.6-8.9) K/mcL BMP 03/04/16 04:56 Sodium 141 Potassium 3.1 L Chloride 111 H Carbon Dioxide 23 BUN 7 L Creatinine 0.71 L Glucose 91 Calcium 7.8 L - ABG Interpretation ABG results: PT/INR, D-dimer PT 14.4 Seconds (9.4-12.1) H 03/02/16 05:35 - VTE Reasons for not Prescribing Prophylaxis: Treatment not Indicated - Low risk for VTE Documentation of Mechanical Device: Intermittent pneumatic compression device Consult Discharge Plan - Plan Referrals: Pastora Gar PENAL OFFICER [Primary Care Provider] -
[2016-03-04] MEDS ORDERED: *HR* Midazolam HCl 5 MG/5 ML VIAL IVP ONE (16:10)
[2016-03-04] MEDS ORDERED: *HR* FentaNYL (PF) 100 MCG/2 ML VIAL ONE (16:11)
[2016-03-04] MEDS ORDERED: Simethicone 40 MG/0.6 ML MLS IR ONE (17:03)
[2016-03-04] MEDS: *HR* FentaNYL (PF) 100 MCG/2 ML VIAL IVP PRN ×3 (17:04→17:08)
[2016-03-04] MEDS: *HR* Midazolam HCl 5 MG/5 ML VIAL IVP PRN ×3 (17:04→17:08)
--- NOTE | 2016-03-04 17:04 | Pre-Sedation Evaluation ---
Pre-sedation evaluation - Pre-sedation checklist Date of procedure: 03/04/16 Procedure: colonoscopy Recent Vitals: Last Vital Signs Temp 97.8 F 03/04/16 16:16 Pulse 87 03/04/16 17:03 Resp 16 03/04/16 17:03 BP 130/72 03/04/16 17:03 Pulse Ox 97 03/04/16 17:03 H&P (including ROS) documented in medical record: Yes Previous reaction to sedatives/anesthetics: No Dietary Status: NPO after Midnight Dentition: dentures removed ASA Classification *see protocol: CLASS II-Mild systemic disease Plan of Care: Pt appropriate candidate for procedure/moderate/conscious sedation , Risks/benefits of procedure/sedation discussed w/ patient/family
[2016-03-04] MEDS: 0.9 % Sodium Chloride 1,000 ML IVC SCH (18:13)
[2016-03-05] MEDS: *HR* HYDROmorphone (PF) 1 MG/ML SYRINGE IVP PRN ×5 (00:42→21:51)
[2016-03-05] MEDS: MetroNIDAZOLE 500 MG/100 ML 500 MG/100 ML BAG IVPB SCH ×3 (00:42→16:53)
[2016-03-05] MEDS: 0.9 % Sodium Chloride 1,000 ML IVC SCH (05:24)
[2016-03-05 06:44] LABS: Basophils % 0.5 %; Eosinophils # 0.1 K/mcL (0.0-0.6); Eosinophils % 1.5 %; Hemoglobin 12.7 g/dL (12.9-16.9); Immature Granulocytes % 1.8 % (0-4); Mean Corpuscular HGB Conc 32.6 g/dL (31.6-35.5); Mean Corpuscular Hemoglobin 27.7 pg (28.0-33.3); Mean Corpuscular Volume 85.2 fL (83.0-100.0); Mean Platelet Volume 9.5 fL (9.4-12.4); Monocytes # 0.8 K/mcL (0.0-1.3); Monocytes % 13.4 %; Neutrophils # 4.1 K/mcL (1.6-8.9); Nucleated Red Blood Cells 0.3 /100 WBC (0); Platelet Count 352 K/mcL (140-400); Red Blood Count 4.58 M/mcL (4.19-5.50); Red Cell Distribution Width 14.2 % (11.5-14.5); Segmented Neutrophils % 66.8 %
[2016-03-05 06:50] LABS: BUN/Creatinine Ratio 9 (6-26); Blood Urea Nitrogen 7 mg/dL (8-26); Calcium 7.9 mg/dL (8.6-10.8); Carbon Dioxide 20 mEq/L (19-29); Chloride 109 mEq/L (98-109); Glucose 163 mg/dL (70-99); Osmolality,Calculated 290 (280-300); Potassium 2.8 mEq/L (3.5-4.5); Sodium 139 mEq/L (136-145); eGFR For African Americans > 60 (> 60); eGFR For Non-African Americans > 60 (> 60)
[2016-03-05 07:53] LABS: Platelet Estimate Normal (Normal); Polychromasia 1+ (Not Present)
[2016-03-05] MEDS: MethylPREDNISolone 40 MG/ML VIAL IVP SCH (09:55)
[2016-03-05] MEDS: sulfaSALAzine 500 MG TABLET PO SCH ×3 (09:55→21:51)
[2016-03-05] MEDS: Pantoprazole 40 MG VIAL IVP SCH ×2 (09:55→16:53)
--- NOTE | 2016-03-05 16:24 | Internal Med Progress Note ---
Date of Encounter: 03/05/16 Time of Encounter: 10:00 - Assessment and plan (1) Abdominal pain Current Visit: Yes Status: Chronic Assessment and plan: Consider ulcerative colitis flare. Will give IV fluid, IV antibiotic, steroid treatment. Continue sulfasalazine. Had colonoscopy done. GI is on case. Qualifiers: Abdominal location: generalized Qualified Code(s): R10.84 - Generalized abdominal pain (2) Lower gastrointestinal hemorrhage Current Visit: Yes Status: Acute Assessment and plan: Possibly due to ulcerative colitis flare. We will closely monitor vitals and hemoglobin change. GI consult appreciated. Colonoscopy done (3) Ulcerative colitis Current Visit: Yes Status: Chronic Assessment and plan: Treatment and plan as above Qualifiers: Ulcerative colitis location: unspecified ulcerative colitis location Digestive disease complication type: with rectal bleeding Qualified Code(s): K51.911 - Ulcerative colitis, unspecified with rectal bleeding (4) DVT prophylaxis Current Visit: Yes Status: Acute Assessment and plan: EPCD. No anticoagulation because patient has rectal bleeding. - Time Spent With Patient 25 - 35 minutes - Subjective Interval history: Patient is a 55-year-old male admitted for abdominal pain and rectal bleeding. His past medical history is significant for Ulcerative colitis. I saw and examined the patient today. He still complaining of abdominal pain but feels much less. No nausea, no vomiting. Still having bloody diarrhea. Denies lightheaded. Vital signs stable. Hemoglobin is slightly drop but generally stable. GI consult on case. Had a colonoscopy yesterday. We will continue antibiotic, IV steroids, and sulfasalazine. Patient has hypokalemia, possibly due to diarrhea, will give by mouth potassium supplement. - Constitutional Vitals: Temp Pulse Resp BP Pulse Ox 98.4 F 95 16 105/64 94 L 03/05/16 16:05 03/05/16 16:05 03/05/16 16:05 03/05/16 16:05 03/05/16 16:05 General appearance: Present: cooperative, mild distress, A&O X 3, no acute distress, answers questions appropriately - Head Head exam: Present: atraumatic, normocephalic - Eye Eye exam: Present: PERRL, conjuntiva pink, sclera anicteric Pupils: Present: PERRL - Neck Neck exam general surgery: Present: supple, trachea midline. Absent: lymphadenopathy - Respiratory Respiratory exam: Present: CTAB. Absent: accessory muscle use, rales, rhonchi, wheezes - Cardiovascular Cardiovascular exam: Present: RRR, +S1, +S2. Absent: diastolic murmur, gallop, rubs, systolic murmur - GI/Abdominal GI/Abdominal exam: Present: normal bowel sounds, soft, tenderness (Mild tenderness on lower abdomen, no guarding no rebound), no peritoneal signs. Absent: distended - Extremities Exam Extremities exam: Present: warm, radial pulses palpable and symetrical. Absent : calf tenderness, cyanotic, pedal edema - Neurological Exam Neurological exam: Present: CN II-XII intact, oriented X3, no focal deficits. Absent: pronater drift, facial droop, speech deficit - Skin Skin exam: Present: dry, intact Internal Medicine: Result - Labs CBC & Chem 7: 03/05/16 05:41 03/05/16 05:41 Labs: Short CBC 03/05/16 Range/Units 05:41 WBC 6.2 (4.3-11.1) K/mcL Hgb 12.7 L (12.9-16.9) g/dL Hct 39.0 (37.5-50.1) % Plt Count 352 (140-400) K/mcL Neutrophils # 4.1 (1.6-8.9) K/mcL BMP 03/05/16 05:41 Sodium 139 Potassium 2.8 L Chloride 109 Carbon Dioxide 20 BUN 7 L Creatinine 0.78 Glucose 163 H Calcium 7.9 L - ABG Interpretation ABG results: PT/INR, D-dimer PT 14.4 Seconds (9.4-12.1) H 03/02/16 05:35 - VTE Reasons for not Prescribing Prophylaxis: Treatment not Indicated - Low risk for VTE Documentation of Mechanical Device: Intermittent pneumatic compression device Consult Discharge Plan - Plan Referrals: Pastora Gar WIRELESS CONSTRUCTION MANAGER [Primary Care Provider] -
[2016-03-06] MEDS: MetroNIDAZOLE 500 MG/100 ML 500 MG/100 ML BAG IVPB SCH ×3 (00:09→15:31)
[2016-03-06] MEDS: *HR* HYDROmorphone (PF) 1 MG/ML SYRINGE IVP PRN ×4 (04:41→21:01)
[2016-03-06 06:24] LABS: Basophils % 0.6 %; Eosinophils # 0.1 K/mcL (0.0-0.6); Eosinophils % 1.4 %; Hematocrit 33.3 % (37.5-50.1); Hemoglobin 11.2 g/dL (12.9-16.9); Immature Granulocytes % 1.9 % (0-4); Lymphocytes # 1.2 K/mcL (0.6-4.6); Lymphocytes % 19.6 %; Mean Corpuscular HGB Conc 33.6 g/dL (31.6-35.5); Mean Corpuscular Hemoglobin 28.6 pg (28.0-33.3); Mean Corpuscular Volume 84.9 fL (83.0-100.0); Mean Platelet Volume 9.3 fL (9.4-12.4); Monocytes % 15.5 %; Neutrophils # 3.8 K/mcL (1.6-8.9); Nucleated Red Blood Cells 0.5 /100 WBC (0); Platelet Count 322 K/mcL (140-400); Red Blood Count 3.92 M/mcL (4.19-5.50); Red Cell Distribution Width 14.2 % (11.5-14.5)
[2016-03-06 06:30] LABS: BUN/Creatinine Ratio 7 (6-26); Calcium 7.7 mg/dL (8.6-10.8); Carbon Dioxide 23 mEq/L (19-29); Chloride 110 mEq/L (98-109); Glucose 87 mg/dL (70-99); Magnesium 1.6 mg/dL (1.6-2.6); Osmolality,Calculated 289 (280-300); Sodium 141 mEq/L (136-145); eGFR For African Americans > 60 (> 60); eGFR For Non-African Americans > 60 (> 60)
[2016-03-06 06:38] LABS: Blood Urea Nitrogen 5 mg/dL (8-26)
[2016-03-06 06:52] LABS: Platelet Estimate Normal (Normal); Reactive Lymphocytes Present (Not Present); Toxic Granulation Present (Not Present)
[2016-03-06] MEDS ORDERED: Potassium Chloride Elixir 20 MEQ/15 ML UDC PO ONE (07:36)
[2016-03-06] MEDS: Pantoprazole 40 MG VIAL IVP SCH ×2 (08:07→15:30)
[2016-03-06] MEDS: 0.9 % Sodium Chloride 1,000 ML IVC SCH (08:07)
[2016-03-06] MEDS: MethylPREDNISolone 40 MG/ML VIAL IVP SCH (08:07)
[2016-03-06] MEDS: sulfaSALAzine 500 MG TABLET PO SCH ×3 (08:07→21:01)
[2016-03-06] MEDS: methylPREDNISolone 125 MG/2 ML VIAL IVP SCH ×3 (09:51→21:00)
--- NOTE | 2016-03-06 10:14 | Gastroenterology Progress Note ---
<Fara Cat - Last Filed: 03/06/16 11:32> Date of Encounter: 03/06/16 Time of Encounter: 10:44 - Assessment and plan (1) Hematochezia Current Visit: Yes Status: Acute Assessment and plan: UC flare, evidence of anal fissure with underlying constipation symptoms. Continue stool softener, miralax bid PRN. C scope reveals UC and overlapping ischemic colitis (2) Hepatic steatosis Current Visit: Yes Status: Chronic Assessment and plan: mild elevation of AST, OTPT w/u. (3) Abdominal pain Current Visit: Yes Status: Chronic Assessment and plan: Likely 2ndary to acute UC flare with ischemic colitis (r/o c diff infection) continue steroids/atbs. Qualifiers: Abdominal location: generalized Qualified Code(s): R10.84 - Generalized abdominal pain (4) Ulcerative colitis Current Visit: Yes Status: Chronic Assessment and plan: Currently on sulfasalazine. C scope revealed severe UC with overlapping ischemic colitis possible. R/O c diff. Recommend d/c with prednisone 30 mg po daily x 2 weeks, then begin taper, ie. 20 mg po daily x 1 week, etc. F/U with Dr. Otero 2-3 weeks after d/c. Continue oral cipro/flagyl therapy at time of d/c. Recommend that patient not return to work until seen in f/u in GI clinic with Dr. Otero. Qualifiers: Ulcerative colitis location: unspecified ulcerative colitis location Digestive disease complication type: with rectal bleeding Qualified Code(s): K51.911 - Ulcerative colitis, unspecified with rectal bleeding (5) Ischemic colitis Current Visit: Yes Status: Acute Assessment and plan: Findings from endoscopy suggest that this may be superimposed on patient underlying UC. - Time Spent With Patient Total time spent is greater than 50% in coordination of care (as documented) at patient's floor/unit and/or counseling patient: - Subjective Interval history: Patient is a 55-year-old male admitted for abdominal pain and rectal bleeding. His past medical history is significant for Ulcerative colitis. Colonoscopy revealed severe UC with suspected overlying ischemic colitis. R/O c diff. Patient still having some significant abd pain and some BRBPR. He was sitting resting in bedside table. He is concerned about being off work and returning once discharged. 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 - Constitutional Vitals: Temp Pulse Resp BP Pulse Ox 97.5 F L 63 17 144/93 96 03/06/16 08:19 03/06/16 08:19 03/06/16 08:19 03/06/16 08:19 03/06/16 08:19 General appearance: Present: cooperative, A&O X 3, no acute distress, answers questions appropriately - Head Head exam: Present: atraumatic, normocephalic - Eye Eye exam: Present: normal appearance, sclera anicteric - ENT ENT exam: Present: mucous membranes moist - Neck Neck exam general surgery: Present: normal inspection, trachea midline - Respiratory Respiratory exam: Present: CTAB - Cardiovascular Cardiovascular exam: Present: RRR, +S1, +S2 - GI/Abdominal GI/Abdominal exam: Present: soft, tenderness - Rectal Rectal exam: Present: deferred - Extremities Exam Extremities exam: Present: warm - Neurological Exam Neurological exam: Present: no focal deficits - Psychiatric Psychiatric exam: Present: normal affect, normal mood - Skin Skin exam: Present: dry, intact, normal color, warm Results - Labs CBC & Chem 7: 03/06/16 05:16 03/06/16 05:16 Labs: Last Result ESR 43 mm/hr (0-10) H 03/02/16 05:35 Calcium 7.7 mg/dL (8.6-10.8) L 03/06/16 05:16 C-Reactive Protein 121 mg/L (Less than 5) H 03/02/16 05:35 Entire Visit Hgb 11.2 g/dL (12.9-16.9) L D 03/06/16 05:16 Hct 33.3 % (37.5-50.1) L 03/06/16 05:16 PT 14.4 Seconds (9.4-12.1) H 03/02/16 05:35 Lipase < 4 Units/L (8-78) L 03/01/16 20:42 - ABG ABG results: PT/INR, D-dimer PT 14.4 Seconds (9.4-12.1) H 03/02/16 05:35 - VTE Reasons for not Prescribing Prophylaxis: Treatment not Indicated - Low risk for VTE Documentation of Mechanical Device: Intermittent pneumatic compression device Consult Discharge Plan - Plan Referrals: Asif Johnson, [Non-Partnered Physician] - <Reymundo Otero - Last Filed: 03/06/16 17:26> Time of Encounter: 15:00 - Time Spent With Patient Total time spent is greater than 50% in coordination of care (as documented) at patient's floor/unit and/or counseling patient: - Constitutional Vitals: Temp Pulse Resp BP Pulse Ox 97.5 F L 79 16 127/80 96 03/06/16 16:30 03/06/16 16:30 03/06/16 16:30 03/06/16 16:30 03/06/16 16:30 Results - Labs CBC & Chem 7: 03/06/16 05:16 03/06/16 05:16 Labs: Last Result ESR 43 mm/hr (0-10) H 03/02/16 05:35 Calcium 7.7 mg/dL (8.6-10.8) L 03/06/16 05:16 C-Reactive Protein 121 mg/L (Less than 5) H 03/02/16 05:35 Entire Visit Hgb 11.2 g/dL (12.9-16.9) L D 03/06/16 05:16 Hct 33.3 % (37.5-50.1) L 03/06/16 05:16 PT 14.4 Seconds (9.4-12.1) H 03/02/16 05:35 Lipase < 4 Units/L (8-78) L 03/01/16 20:42 - ABG ABG results: PT/INR, D-dimer PT 14.4 Seconds (9.4-12.1) H 03/02/16 05:35
[2016-03-06] MEDS: *HR* HYDROcodone/Acet 5/325 mg TABLET PO PRN (12:54)
[2016-03-06] MEDS ORDERED: 0.9 % Sodium Chloride 1,000 ML IVC SCH (15:40)
--- NOTE | 2016-03-06 15:43 | Internal Med Progress Note ---
Date of Encounter: 03/06/16 Time of Encounter: 09:00 - Assessment and plan (1) Abdominal pain Current Visit: Yes Status: Chronic Assessment and plan: Consider ulcerative colitis flare, and/or possibly ischemic colitis. Will give IV fluid, IV antibiotic, increase dose of steroid treatment. Continue sulfasalazine. Had colonoscopy done. GI is on case. Qualifiers: Abdominal location: generalized Qualified Code(s): R10.84 - Generalized abdominal pain (2) Lower gastrointestinal hemorrhage Current Visit: Yes Status: Acute Assessment and plan: Possibly due to ulcerative colitis flare. We will closely monitor vitals and hemoglobin change. GI consult appreciated. Colonoscopy done (3) Ulcerative colitis Current Visit: Yes Status: Chronic Assessment and plan: Treatment and plan as above Qualifiers: Ulcerative colitis location: unspecified ulcerative colitis location Digestive disease complication type: with rectal bleeding Qualified Code(s): K51.911 - Ulcerative colitis, unspecified with rectal bleeding (4) DVT prophylaxis Current Visit: Yes Status: Acute Assessment and plan: EPCD. No anticoagulation because patient has rectal bleeding. - Time Spent With Patient 25 - 35 minutes - Subjective Interval history: Patient is a 55-year-old male admitted for abdominal pain and rectal bleeding. His past medical history is significant for Ulcerative colitis. I saw and examined the patient today. He still complaining of abdominal pain but feels less. No nausea, no vomiting. Still having bloody diarrhea x 5 since yesterday. Denies lightheaded. Vital signs stable. Hemoglobin is slightly drop but generally stable. GI consult on case. Had a colonoscopy. Consider possibly pt also has ischemic colitis. We will continue antibiotic, increase IV steroids to control inflammation, continue sulfasalazine. Patient still has hypokalemia, possibly due to diarrhea, will continue by mouth potassium supplement. - Constitutional Vitals: Temp Pulse Resp BP Pulse Ox 98.0 F 95 16 146/82 100 03/06/16 12:27 03/06/16 12:27 03/06/16 12:27 03/06/16 12:27 03/06/16 12:27 General appearance: Present: cooperative, mild distress, A&O X 3, no acute distress, answers questions appropriately - Head Head exam: Present: atraumatic, normocephalic - Eye Eye exam: Present: PERRL, conjuntiva pink, sclera anicteric Pupils: Present: PERRL - Neck Neck exam general surgery: Present: supple, trachea midline. Absent: lymphadenopathy - Respiratory Respiratory exam: Present: CTAB. Absent: accessory muscle use, rales, rhonchi, wheezes - Cardiovascular Cardiovascular exam: Present: RRR, +S1, +S2. Absent: diastolic murmur, gallop, rubs, systolic murmur - GI/Abdominal GI/Abdominal exam: Present: normal bowel sounds, soft, tenderness, no peritoneal signs. Absent: distended - Extremities Exam Extremities exam: Present: warm, radial pulses palpable and symetrical. Absent : calf tenderness, cyanotic, pedal edema - Neurological Exam Neurological exam: Present: CN II-XII intact, oriented X3, no focal deficits. Absent: pronater drift, facial droop, speech deficit - Skin Skin exam: Present: dry, intact Internal Medicine: Result - Labs CBC & Chem 7: 03/06/16 05:16 03/06/16 05:16 Labs: Short CBC 03/06/16 Range/Units 05:16 WBC 6.3 (4.3-11.1) K/mcL Hgb 11.2 L D (12.9-16.9) g/dL Hct 33.3 L (37.5-50.1) % Plt Count 322 (140-400) K/mcL Neutrophils # 3.8 (1.6-8.9) K/mcL BMP 03/06/16 05:16 Sodium 141 Potassium 3.0 L Chloride 110 H Carbon Dioxide 23 BUN 5 L Creatinine 0.71 L Glucose 87 Calcium 7.7 L - ABG Interpretation ABG results: PT/INR, D-dimer PT 14.4 Seconds (9.4-12.1) H 03/02/16 05:35 - VTE Reasons for not Prescribing Prophylaxis: Treatment not Indicated - Low risk for VTE Documentation of Mechanical Device: Intermittent pneumatic compression device Consult Discharge Plan - Plan Referrals: Asif Johnson DO [Non-Partnered Physician] -
[2016-03-07] MEDS: *HR* HYDROcodone/Acet 5/325 mg TABLET PO PRN ×3 (00:38→16:42)
[2016-03-07] MEDS: MetroNIDAZOLE 500 MG/100 ML 500 MG/100 ML BAG IVPB SCH ×4 (00:39→23:56)
[2016-03-07] MEDS: *HR* HYDROmorphone (PF) 1 MG/ML SYRINGE IVP PRN ×4 (03:50→21:00)
[2016-03-07] MEDS: methylPREDNISolone 125 MG/2 ML VIAL IVP SCH ×4 (03:50→20:59)
[2016-03-07 05:17] LABS: Basophils % 0.2 %; Hematocrit 36.5 % (37.5-50.1); Hemoglobin 12.4 g/dL (12.9-16.9); Immature Granulocytes % 2.3 % (0-4); Lymphocytes % 12.9 %; Mean Corpuscular Hemoglobin 28.8 pg (28.0-33.3); Mean Corpuscular Volume 84.7 fL (83.0-100.0); Mean Platelet Volume 9.3 fL (9.4-12.4); Monocytes # 0.7 K/mcL (0.0-1.3); Monocytes % 8.4 %; Neutrophils # 6.2 K/mcL (1.6-8.9); Platelet Count 376 K/mcL (140-400); Red Blood Count 4.31 M/mcL (4.19-5.50); Red Cell Distribution Width 14.3 % (11.5-14.5); Segmented Neutrophils % 76.2 %
[2016-03-07 05:36] LABS: BUN/Creatinine Ratio 8 (6-26); Blood Urea Nitrogen 6 mg/dL (8-26); Carbon Dioxide 19 mEq/L (19-29); Chloride 108 mEq/L (98-109); Glucose 199 mg/dL (70-99); Osmolality,Calculated 287 (280-300); Potassium 3.4 mEq/L (3.5-4.5); Sodium 137 mEq/L (136-145); eGFR For African Americans > 60 (> 60); eGFR For Non-African Americans > 60 (> 60)
[2016-03-07 05:41] LABS: Platelet Estimate Normal (Normal)
[2016-03-07] MEDS: Pantoprazole 40 MG VIAL IVP SCH ×2 (08:41→16:42)
[2016-03-07] MEDS: sulfaSALAzine 500 MG TABLET PO SCH ×3 (08:42→20:59)
--- NOTE | 2016-03-07 16:26 | Internal Med Progress Note ---
Date of Encounter: 03/07/16 Time of Encounter: 09:00 - Assessment and plan (1) Abdominal pain Current Visit: Yes Status: Chronic Assessment and plan: Consider ulcerative colitis flare, and/or possibly ischemic colitis. Will give IV fluid, IV antibiotic, and steroid treatment. Continue sulfasalazine. Had colonoscopy done. GI is on case. Qualifiers: Abdominal location: generalized Qualified Code(s): R10.84 - Generalized abdominal pain (2) Lower gastrointestinal hemorrhage Current Visit: Yes Status: Acute Assessment and plan: Possibly due to ulcerative colitis flare. We will closely monitor vitals and hemoglobin change. GI consult appreciated. Colonoscopy done (3) Ulcerative colitis Current Visit: Yes Status: Chronic Assessment and plan: Treatment and plan as above Qualifiers: Ulcerative colitis location: unspecified ulcerative colitis location Digestive disease complication type: with rectal bleeding Qualified Code(s): K51.911 - Ulcerative colitis, unspecified with rectal bleeding (4) DVT prophylaxis Current Visit: Yes Status: Acute Assessment and plan: EPCD. No anticoagulation because patient has rectal bleeding. - Time Spent With Patient 25 - 35 minutes - Subjective Interval history: Patient is a 55-year-old male admitted for abdominal pain and rectal bleeding. His past medical history is significant for Ulcerative colitis. I saw and examined the patient today. He complaining of less abdominal pain. No nausea, no vomiting. Still having diarrhea but less bloody. Patient has bilateral leg swelling, no calf pain or tenderness. Venous Doppler has ordered to rule out DVT. We will continue antibiotic, steroids, and sulfasalazine. Patient still has hypokalemia, possibly due to diarrhea, will continue by mouth potassium supplement. - Constitutional Vitals: Temp Pulse Resp BP Pulse Ox 97.4 F L 81 16 114/57 96 03/07/16 14:29 03/07/16 14:29 03/07/16 14:29 03/07/16 14:29 03/07/16 14:29 General appearance: Present: cooperative, mild distress, A&O X 3, no acute distress, answers questions appropriately - Head Head exam: Present: atraumatic, normocephalic - Eye Eye exam: Present: PERRL, conjuntiva pink, sclera anicteric Pupils: Present: PERRL - Neck Neck exam general surgery: Present: supple, trachea midline. Absent: lymphadenopathy - Respiratory Respiratory exam: Present: CTAB. Absent: accessory muscle use, rales, rhonchi, wheezes - Cardiovascular Cardiovascular exam: Present: RRR, +S1, +S2. Absent: diastolic murmur, gallop, rubs, systolic murmur - GI/Abdominal GI/Abdominal exam: Present: normal bowel sounds, soft, tenderness, no peritoneal signs. Absent: distended Additional comments: Mild tenderness in lower abdomen - Extremities Exam Extremities exam: Present: warm, radial pulses palpable and symetrical. Absent : calf tenderness, cyanotic, pedal edema - Neurological Exam Neurological exam: Present: CN II-XII intact, oriented X3, no focal deficits. Absent: pronater drift, facial droop, speech deficit - Skin Skin exam: Present: dry, intact Internal Medicine: Result - Labs CBC & Chem 7: 03/07/16 04:59 03/07/16 04:59 Labs: Short CBC 03/07/16 Range/Units 04:59 WBC 8.1 (4.3-11.1) K/mcL Hgb 12.4 L (12.9-16.9) g/dL Hct 36.5 L (37.5-50.1) % Plt Count 376 (140-400) K/mcL Neutrophils # 6.2 (1.6-8.9) K/mcL BMP 03/07/16 04:59 Sodium 137 Potassium 3.4 L Chloride 108 Carbon Dioxide 19 BUN 6 L Creatinine 0.77 Glucose 199 H Calcium 8.0 L - ABG Interpretation ABG results: PT/INR, D-dimer PT 14.4 Seconds (9.4-12.1) H 03/02/16 05:35 - VTE Reasons for not Prescribing Prophylaxis: Treatment not Indicated - Low risk for VTE Documentation of Mechanical Device: Intermittent pneumatic compression device Consult Discharge Plan - Plan Referrals: Asif Johnson DO [Non-Partnered Physician] -
--- NOTE | 2016-03-07 18:55 | Venous Imaging Report ---
LE Venous Duplex Patient Name:Jason Sheets Order Number:[id number] Procedure Date:03/07/2016 Date:1960Age:55 yrs Gender:Male Location:[facility] Room #: 3A55 Pet House Sitter:Tracee Davidmeseret Referring MD:Carlota Villa MD bulk driver:Pastora Gar, [employer] Reading MD:Jemal Ernst MD Primary Indications:legs swelling, r/o DVT Secondary Indications: Impressions: Normal bilateral lower extremity deep and superficial venous exam. Recommendations: After imaging the patient returned to their room. Findings Venous Duplex Results: Right: Venous imaging of the lower extremity reveals full patency and normal vessel compressibility of the right distal iliac, right common femoral, right superficial femoral, right popliteal, right posterior tibial, right peroneal, right great saphenous and right lesser saphenous. Doppler signals in the evaluated veins were normal. Left: Venous imaging of the lower extremity reveals full patency and normal vessel compressibility of the left distal iliac, left common femoral, left superficial femoral, left popliteal, left posterior tibial, left peroneal, left great saphenous and left lesser saphenous. Doppler signals in the evaluated veins were normal. Prior Study: No prior study available for comparison. Lower Extremity Venous Duplex Side Vein Compress Spontaneous Flow Augment Diameter (cm) Depth (cm) Right Distal Iliac Normal Yes Phasic Yes Right Common Femoral Normal Yes Phasic Yes Right Superficial Femoral Normal Yes Phasic Yes Right Popliteal Normal Yes Phasic Yes Right Posterior Tibial Normal Yes Phasic Yes Right Peroneal Normal Yes Phasic Yes Right Great Saphenous Normal Yes Phasic Yes Right Lesser Saphenous Normal Yes Phasic Yes Left Distal Iliac Normal Yes Phasic Yes Left Common Femoral Normal Yes Phasic Yes Left Superficial Femoral Normal Yes Phasic Yes Left Popliteal Normal Yes Phasic Yes Left Posterior Tibial Normal Yes Phasic Yes Left Peroneal Normal Yes Phasic Yes Left Great Saphenous Normal Yes Phasic Yes Left Lesser Saphenous Normal Yes Phasic Yes Updated by Jemal Ernst MD on 03/07/2016 6:49:57 PM electronically signed on 03/07/2016 6:50:29 PM with status of Final
[2016-03-08 03:42] LABS: Basophils # 0.1 K/mcL (0.0-0.2); Basophils % 0.5 %; Hematocrit 35.7 % (37.5-50.1); Immature Granulocytes % 4.2 % (0-4); Lymphocytes # 1.1 K/mcL (0.6-4.6); Lymphocytes % 7.8 %; Mean Corpuscular HGB Conc 33.6 g/dL (31.6-35.5); Mean Corpuscular Hemoglobin 28.3 pg (28.0-33.3); Mean Corpuscular Volume 84.2 fL (83.0-100.0); Mean Platelet Volume 9.3 fL (9.4-12.4); Monocytes # 0.7 K/mcL (0.0-1.3); Monocytes % 4.8 %; Neutrophils # 11.5 K/mcL (1.6-8.9); Nucleated Red Blood Cells 0.1 /100 WBC (0); Platelet Count 381 K/mcL (140-400); Red Blood Count 4.24 M/mcL (4.19-5.50); Red Cell Distribution Width 14.4 % (11.5-14.5); Segmented Neutrophils % 82.7 %
[2016-03-08 03:54] LABS: BUN/Creatinine Ratio 15 (6-26); Blood Urea Nitrogen 11 mg/dL (8-26); Calcium 8.4 mg/dL (8.6-10.8); Carbon Dioxide 21 mEq/L (19-29); Chloride 110 mEq/L (98-109); Glucose 141 mg/dL (70-99); Magnesium 1.9 mg/dL (1.6-2.6); Osmolality,Calculated 290 (280-300); Potassium 3.9 mEq/L (3.5-4.5); Sodium 139 mEq/L (136-145); eGFR For African Americans > 60 (> 60); eGFR For Non-African Americans > 60 (> 60)
[2016-03-08 04:05] LABS: Platelet Estimate Normal (Normal)
[2016-03-08] MEDS: methylPREDNISolone 125 MG/2 ML VIAL IVP SCH ×4 (04:05→22:41)
[2016-03-08 04:06] LABS: Large Platelets Present (Not Present); Polychromasia 2+ (Not Present); Reactive Lymphocytes Present (Not Present)
[2016-03-08] MEDS: MetroNIDAZOLE 500 MG/100 ML 500 MG/100 ML BAG IVPB SCH ×3 (08:06→23:52)
[2016-03-08] MEDS: sulfaSALAzine 500 MG TABLET PO SCH ×3 (08:06→22:40)
[2016-03-08] MEDS: Pantoprazole 40 MG VIAL IVP SCH ×2 (08:06→16:22)
[2016-03-08] MEDS: *HR* HYDROmorphone (PF) 1 MG/ML SYRINGE IVP PRN ×3 (08:31→23:52)
[2016-03-08] MEDS: *HR* HYDROcodone/Acet 5/325 mg TABLET PO PRN ×2 (12:01→22:41)
--- NOTE | 2016-03-08 14:53 | Internal Med Progress Note ---
Date of Encounter: 03/08/16 Time of Encounter: 09:00 - Assessment and plan (1) Abdominal pain Current Visit: Yes Status: Chronic Assessment and plan: Consider ulcerative colitis flare, and/or possibly ischemic colitis. Will give IV fluid, IV antibiotic, and steroid treatment. Continue sulfasalazine. Had colonoscopy done. GI is on case. Qualifiers: Abdominal location: generalized Qualified Code(s): R10.84 - Generalized abdominal pain (2) Lower gastrointestinal hemorrhage Current Visit: Yes Status: Acute Assessment and plan: Possibly due to ulcerative colitis flare. We will closely monitor vitals and hemoglobin change. GI consult appreciated. Colonoscopy done (3) Ulcerative colitis Current Visit: Yes Status: Chronic Assessment and plan: Treatment and plan as above Qualifiers: Ulcerative colitis location: unspecified ulcerative colitis location Digestive disease complication type: with rectal bleeding Qualified Code(s): K51.911 - Ulcerative colitis, unspecified with rectal bleeding (4) DVT prophylaxis Current Visit: Yes Status: Acute Assessment and plan: EPCD. No anticoagulation because patient has rectal bleeding. - Time Spent With Patient 25 - 35 minutes - Subjective Interval history: Patient is a 55-year-old male admitted for abdominal pain and rectal bleeding. His past medical history is significant for Ulcerative colitis. I saw and examined the patient today. He has a continuous improvement with abdominal pain and diarrhea. No nausea, no vomiting. Still having diarrhea but less bloody. Patient has bilateral leg swelling but less than yesterday. Venous Doppler shows negative for DVT. We will continue antibiotic, steroids, and sulfasalazine. Hypokalemia has improved after potassium supplement. - Constitutional Vitals: Temp Pulse Resp BP Pulse Ox 97.4 F L 71 15 103/63 94 L 03/08/16 07:08 03/08/16 07:08 03/08/16 07:08 03/08/16 07:08 03/08/16 07:08 General appearance: Present: cooperative, mild distress, A&O X 3, no acute distress, answers questions appropriately - Head Head exam: Present: atraumatic, normocephalic - Eye Eye exam: Present: PERRL, conjuntiva pink, sclera anicteric Pupils: Present: PERRL - Neck Neck exam general surgery: Present: supple, trachea midline. Absent: lymphadenopathy - Respiratory Respiratory exam: Present: CTAB. Absent: accessory muscle use, rales, rhonchi, wheezes - Cardiovascular Cardiovascular exam: Present: RRR, +S1, +S2. Absent: diastolic murmur, gallop, rubs, systolic murmur - GI/Abdominal GI/Abdominal exam: Present: normal bowel sounds, soft, tenderness (Mild tenderness on lower abdominal on deep palpation), no peritoneal signs. Absent: distended - Extremities Exam Extremities exam: Present: pedal edema (Mild pedal edema bilaterally), warm, radial pulses palpable and symetrical. Absent: calf tenderness, cyanotic - Neurological Exam Neurological exam: Present: CN II-XII intact, oriented X3, no focal deficits. Absent: pronater drift, facial droop, speech deficit - Skin Skin exam: Present: dry, intact Internal Medicine: Result - Labs CBC & Chem 7: 03/08/16 03:33 03/08/16 03:33 Labs: Short CBC 03/08/16 Range/Units 03:33 WBC 13.9 H D (4.3-11.1) K/mcL Hgb 12.0 L (12.9-16.9) g/dL Hct 35.7 L (37.5-50.1) % Plt Count 381 (140-400) K/mcL Neutrophils # 11.5 H (1.6-8.9) K/mcL BMP 03/08/16 03:33 Sodium 139 Potassium 3.9 Chloride 110 H Carbon Dioxide 21 BUN 11 Creatinine 0.75 Glucose 141 H Calcium 8.4 L - ABG Interpretation ABG results: PT/INR, D-dimer PT 14.4 Seconds (9.4-12.1) H 03/02/16 05:35 - VTE Reasons for not Prescribing Prophylaxis: Treatment not Indicated - Low risk for VTE Documentation of Mechanical Device: Intermittent pneumatic compression device Consult Discharge Plan - Plan Referrals: Asif Johnson DO [Non-Partnered Physician] -
[2016-03-09] MEDS: methylPREDNISolone 125 MG/2 ML VIAL IVP SCH ×4 (04:14→17:12)
[2016-03-09 07:15] LABS: Basophils # 0.2 K/mcL (0.0-0.2); Basophils % 0.8 %; Hematocrit 38.5 % (37.5-50.1); Hemoglobin 12.9 g/dL (12.9-16.9); Immature Granulocytes % 6.7 % (0-4); Lymphocytes # 1.2 K/mcL (0.6-4.6); Lymphocytes % 5.9 %; Mean Corpuscular HGB Conc 33.5 g/dL (31.6-35.5); Mean Corpuscular Hemoglobin 28.4 pg (28.0-33.3); Mean Corpuscular Volume 84.8 fL (83.0-100.0); Mean Platelet Volume 9.4 fL (9.4-12.4); Neutrophils # 15.9 K/mcL (1.6-8.9); Nucleated Red Blood Cells 0.2 /100 WBC (0); Platelet Count 398 K/mcL (140-400); Red Blood Count 4.54 M/mcL (4.19-5.50); Red Cell Distribution Width 14.7 % (11.5-14.5); Segmented Neutrophils % 81.6 %
[2016-03-09 07:27] LABS: BUN/Creatinine Ratio 20 (6-26); Blood Urea Nitrogen 16 mg/dL (8-26); Calcium 8.6 mg/dL (8.6-10.8); Carbon Dioxide 20 mEq/L (19-29); Chloride 107 mEq/L (98-109); Glucose 132 mg/dL (70-99); Osmolality,Calculated 289 (280-300); Potassium 3.8 mEq/L (3.5-4.5); Sodium 138 mEq/L (136-145); eGFR For African Americans > 60 (> 60); eGFR For Non-African Americans > 60 (> 60)
[2016-03-09 07:41] LABS: Platelet Estimate Normal (Normal)
[2016-03-09] MEDS: Pantoprazole 40 MG VIAL IVP SCH ×2 (09:32→17:14)
[2016-03-09] MEDS: MetroNIDAZOLE 500 MG/100 ML 500 MG/100 ML BAG IVPB SCH ×2 (09:32→17:14)
[2016-03-09] MEDS: sulfaSALAzine 500 MG TABLET PO SCH ×3 (09:34→22:05)
[2016-03-09] MEDS: *HR* HYDROmorphone (PF) 1 MG/ML SYRINGE IVP PRN ×3 (09:35→22:07)
--- NOTE | 2016-03-09 11:49 | Internal Med Progress Note ---
Date of Encounter: 03/09/16 Time of Encounter: 09:00 - Assessment and plan (1) Abdominal pain Current Visit: Yes Status: Chronic Assessment and plan: Consider ulcerative colitis flare, and/or possibly ischemic colitis. Will give IV fluid, IV antibiotic, and steroid treatment. Continue sulfasalazine. Had colonoscopy done. GI is on case. Qualifiers: Abdominal location: generalized Qualified Code(s): R10.84 - Generalized abdominal pain (2) Lower gastrointestinal hemorrhage Current Visit: Yes Status: Acute Assessment and plan: Possibly due to ulcerative colitis flare. We will closely monitor vitals and hemoglobin change. GI consult appreciated. Colonoscopy done (3) Ulcerative colitis Current Visit: Yes Status: Chronic Assessment and plan: Treatment and plan as above Qualifiers: Ulcerative colitis location: unspecified ulcerative colitis location Digestive disease complication type: with rectal bleeding Qualified Code(s): K51.911 - Ulcerative colitis, unspecified with rectal bleeding (4) DVT prophylaxis Current Visit: Yes Status: Acute Assessment and plan: EPCD. No anticoagulation because patient has rectal bleeding. (5) Leukocytosis Current Visit: Yes Status: Acute Qualifiers: Leukocytosis type: unspecified Qualified Code(s): D72.829 - Elevated white blood cell count, unspecified (6) Leukocytosis Current Visit: Yes Status: Acute Assessment and plan: It is caused by steroid use Qualifiers: Leukocytosis type: bandemia Qualified Code(s): D72.825 - Bandemia - Time Spent With Patient 25 - 35 minutes - Subjective Interval history: Patient is a 55-year-old male admitted for abdominal pain and rectal bleeding. His past medical history is significant for Ulcerative colitis. I saw and examined the patient today. He has a continuous improvement with abdominal pain and diarrhea. No nausea, no vomiting. Still having diarrhea but less bloody and more well formed (from watery to loose stool). We will continue antibiotic, try to taper down steroids, continue sulfasalazine. Hypokalemia has improved after potassium supplement. - Constitutional Vitals: Temp Pulse Resp BP Pulse Ox 97.0 F L 82 16 123/73 95 03/09/16 11:38 03/09/16 11:38 03/09/16 11:38 03/09/16 11:38 03/09/16 11:38 General appearance: Present: cooperative, mild distress, A&O X 3, no acute distress, answers questions appropriately - Head Head exam: Present: atraumatic, normocephalic - Eye Eye exam: Present: PERRL, conjuntiva pink, sclera anicteric Pupils: Present: PERRL - Neck Neck exam general surgery: Present: supple, trachea midline. Absent: lymphadenopathy - Respiratory Respiratory exam: Present: CTAB. Absent: accessory muscle use, rales, rhonchi, wheezes - Cardiovascular Cardiovascular exam: Present: RRR, +S1, +S2. Absent: diastolic murmur, gallop, rubs, systolic murmur - GI/Abdominal GI/Abdominal exam: Present: normal bowel sounds, soft, tenderness, no peritoneal signs. Absent: distended - Extremities Exam Extremities exam: Present: warm, radial pulses palpable and symetrical. Absent : calf tenderness, cyanotic, pedal edema - Neurological Exam Neurological exam: Present: CN II-XII intact, oriented X3, no focal deficits. Absent: pronater drift, facial droop, speech deficit - Skin Skin exam: Present: dry, intact Internal Medicine: Result - Labs CBC & Chem 7: 03/09/16 06:25 03/09/16 06:25 Labs: Short CBC 03/09/16 Range/Units 06:25 WBC 19.5 H (4.3-11.1) K/mcL Hgb 12.9 (12.9-16.9) g/dL Hct 38.5 (37.5-50.1) % Plt Count 398 (140-400) K/mcL Neutrophils # 15.9 H (1.6-8.9) K/mcL BMP 03/09/16 06:25 Sodium 138 Potassium 3.8 Chloride 107 Carbon Dioxide 20 BUN 16 Creatinine 0.80 Glucose 132 H Calcium 8.6 - ABG Interpretation ABG results: PT/INR, D-dimer PT 14.4 Seconds (9.4-12.1) H 03/02/16 05:35 - VTE Reasons for not Prescribing Prophylaxis: Treatment not Indicated - Low risk for VTE Documentation of Mechanical Device: Intermittent pneumatic compression device Consult Discharge Plan - Plan Referrals: Asif Johnson DO [Non-Partnered Physician] -
[2016-03-10] MEDS: methylPREDNISolone 125 MG/2 ML VIAL IVP SCH ×2 (01:14→09:34)
[2016-03-10] MEDS: MetroNIDAZOLE 500 MG/100 ML 500 MG/100 ML BAG IVPB SCH ×2 (01:14→09:34)
[2016-03-10] MEDS: *HR* HYDROmorphone (PF) 1 MG/ML SYRINGE IVP PRN (03:08)
[2016-03-10 07:44] VITALS: BP 136/73
[2016-03-10] MEDS: Pantoprazole 40 MG VIAL IVP SCH (09:33)
[2016-03-10] MEDS: sulfaSALAzine 500 MG TABLET PO SCH (09:34)
--- NOTE | 2016-03-10 10:15 | Discharge Summary ---
Date of Encounter: 03/10/16 Time of Encounter: 10:00 - Discharge Diagnosis (1) Abdominal pain Priority: Primary Status: Chronic Qualifiers: Abdominal location: generalized Qualified Code(s): R10.84 - Generalized abdominal pain (2) Lower gastrointestinal hemorrhage Priority: Primary Status: Acute (3) Ulcerative colitis Priority: Primary Status: Chronic Qualifiers: Ulcerative colitis location: unspecified ulcerative colitis location Digestive disease complication type: with rectal bleeding Qualified Code(s): K51.911 - Ulcerative colitis, unspecified with rectal bleeding (4) DVT prophylaxis Priority: Secondary Status: Acute (5) Leukocytosis Priority: Secondary Status: Acute Qualifiers: Leukocytosis type: unspecified Qualified Code(s): D72.829 - Elevated white blood cell count, unspecified - Discharge Medications Prescriptions: Ciprofloxacin [Cipro] 500 mg PO BID #20 tablet MetroNIDAZOLE [Flagyl] 500 mg PO TID #30 tablet Omeprazole [PriLOSEC] 40 mg PO DAILY@0630 #60 capsule. Potassium Chloride 20 meq PO DAILY #10 tab.er.prt PredniSONE 40 mg PO BIDWM #30 tablet Home Medications: Sulfasalazine [Azulfidine] 1,500 mg PO TID 02/23/15 [History] Metformin [Glucophage] 500 mg PO BID 03/02/16 [History] Ciprofloxacin [Cipro] 500 mg PO BID #20 tablet 03/10/16 [Rx] MetroNIDAZOLE [Flagyl] 500 mg PO TID #30 tablet 03/10/16 [Rx] Omeprazole [PriLOSEC] 40 mg PO DAILY@0630 #60 capsule. 03/10/16 [Rx] Potassium Chloride 20 meq PO DAILY #10 tab.er.prt 03/10/16 [Rx] PredniSONE 40 mg PO BIDWM #30 tablet 03/10/16 [Rx] Allergies/Adverse Reactions: Allergies sulfamethoxazole [From Bactrim] Adverse Reaction (Verified 03/02/16 13:16) Gastrointestinal Upset trimethoprim [From Bactrim] Adverse Reaction (Verified 03/02/16 13:16) Gastrointestinal Upset Procedures/tests Complete & Pending: Procedures Performed prior 72 hours Category Date Time Status Venous Doppler [EV venous imaging LE BI] Stat Y 03/07/16 10:35 Completed - Notes to Outpatient Provider Patient has hypokalemia, possibly due to chronic diarrhea, on potassium supplement 20 mEq daily, please follow-up potassium level as outpatient Date of admission: 03/05/16 14:36 Primary care physician: Pastora Gar, Discharging clinician: Carlota Villa Anticipated date of discharge: 03/10/16 - Patient Status Disposition: Home, Self-Care Condition: Good Functional capacity at discharge: independent ambulation Overall status at discharge: patient is back to baseline - Discharge Instructions Follow Up With: Asif Johnson DO [Non-Partnered Physician] - Reymundo Otero MD [Partnered Physician] - 03/24/16 - Diet and Activity Activity: increase activity as tolerated Diet: diabetic diet Interval History: Mr. Sheets is a 55 year old male that presented to the ED for abdominal pain for 2-3 weeks with ongoing hematochezia. Patient has a pertinent history of Ulcerative Colitis, followed by Dr. Dayday Richardson in [place]. Patient denies any past hospitalization for UC other than when he was initially diagnosed approx 3 years ago. He has been maintaining on sulfasalazine as outpatient. Patient notes recent GI upset, feeling like he needs to pass a large BM, with severe abdominal cramping. He was seen in the ED on 02/24/16 and 02/26/16 for continuing abdominal pain, abdominal CT neg, given GoLytely for constipation and scheduled follow up with Surgery. Patient states at this point he is having the episodes of abdominal cramping, bleeding, with flatulence and stool approximately 10 times a day. States the pain in his lower abdomen is so tender that he hurts to sit up due to the increased pressure of his stomach. Patient also notes a fever yesterday of 101F with chills. He denies chest pain, shortness of breath. Does state he has chronic back pain, schedule to see Dr. Leal on 03/04/16. Patient received Dilaudid in the ED reducing his abdominal pain from 10/10 to 4/ 10 in severity. Hospital course: Mr. Sheets is a 55 year old male admitted as ulcerative colitis flare. He was treated with antibiotic, steroid, and sulfasalazine. GI consult was called and saw patient. Colonoscopy has been done. After treatment, patient's symptoms have improved. He has no further abdominal pain, decreasd diarrhea, and there is no blood in stool anymore. Patient will discharge on by mouth antibiotics and steroid, and sulfasalazine, and a follow-up GI as outpatient. Patient was seen and examined. He is awake alert and oriented 3. No fever. vitals are stable. No nausea no vomiting. No abdominal pain. Has 2 bowel movements since last 24-hour, with loose stool, no blood in it. Patient is ready to discharge home with by mouth medication and follow-up with GI as outpatient. Patient will be on Cipro and Flagyl. He was educated no alcohol during taking medication. He has low potassium level in hospital, possibly due to diarrhea. We will continue potassium supplement and follow-up potassium level as outpatient. Patient was put on tapering down steroids, he will follow up with GI in 2 weeks , further decision regarding continuing or tapering down steroid will follow GI recommendation upon follow-up. - Time Spent with Patient Total time spent providing and/or coordinating discharge services: 40 minute Greater than 30 minutes - Constitutional Vitals: Temp Pulse Resp BP Pulse Ox 97.6 F 58 14 136/73 97 03/10/16 07:38 03/10/16 07:38 03/10/16 07:38 03/10/16 07:38 03/10/16 07:38 General appearance: Present: cooperative, mild distress, A&O X 3, no acute distress, answers questions appropriately - Head Head exam: Present: atraumatic, normocephalic - Eye Eye exam: Present: PERRL, conjuntiva pink, sclera anicteric Pupils: Present: PERRL - Neck Neck exam general surgery: Present: supple, trachea midline. Absent: lymphadenopathy - Respiratory Respiratory exam: Present: CTAB. Absent: accessory muscle use, rales, rhonchi, wheezes - Cardiovascular Cardiovascular exam: Present: RRR, +S1, +S2. Absent: diastolic murmur, gallop, rubs, systolic murmur - GI/Abdominal GI/Abdominal exam: Present: normal bowel sounds, soft, tenderness (Mild tenderness lower abdomen on deep palpation, without guarding or rebound), no peritoneal signs. Absent: distended - Extremities Exam Extremities exam: Present: warm, radial pulses palpable and symetrical. Absent : calf tenderness, cyanotic, pedal edema - Neurological Exam Neurological exam: Present: CN II-XII intact, oriented X3, no focal deficits. Absent: pronater drift, facial droop, speech deficit - Skin Skin exam: Present: dry, intact - VTE Reasons for not Prescribing Prophylaxis: Treatment not Indicated - Low risk for VTE Documentation of Mechanical Device: Intermittent pneumatic compression device
--- NOTE | 2016-03-10 11:21 | Gastroenterology Progress Note ---
Date of Encounter: 03/10/16 Time of Encounter: 10:00 - Assessment and plan (1) Hematochezia Current Visit: Yes Status: Acute Assessment and plan: UC flare, evidence of anal fissure with underlying constipation symptoms. Continue stool softener, Miralax BID PRN. Cscope reveals UC. (2) Abdominal pain Current Visit: Yes Status: Chronic Assessment and plan: Likely secondary to acute UC flare continue steroids/ATBs. Qualifiers: Abdominal location: generalized Qualified Code(s): R10.84 - Generalized abdominal pain (3) Hepatic steatosis Current Visit: Yes Status: Chronic Assessment and plan: Mild elevation of AST, outpatient w/u. (4) Ulcerative colitis Current Visit: Yes Status: Chronic Assessment and plan: Currently on sulfasalazine. Cscope revealed severe UC, no ischemic colitis revealed on pathology. Cdiff negative. Recommend d/c with Prednisone 30 mg po daily x 2 weeks, then begin taper, ie. 20 mg po daily x 1 week, etc. F/U with Dr. Otero 2-3 weeks after d/c. Continue oral Cipro/Flagyl therapy at time of d/c. Recommend that patient not return to work until seen in f/u in GI clinic with Dr. Otero. Qualifiers: Ulcerative colitis location: unspecified ulcerative colitis location Digestive disease complication type: with rectal bleeding Qualified Code(s): K51.911 - Ulcerative colitis, unspecified with rectal bleeding - Time Spent With Patient Total time spent is greater than 50% in coordination of care (as documented) at patient's floor/unit and/or counseling patient: - Subjective Interval history: Patient reports feeling better today and is without acute complaint at this time. He denies nausea or vomiting. Abdominal pain much improved, stools loose, but no watery diarrhea. - Constitutional Vitals: Temp Pulse Resp BP Pulse Ox 97.6 F 58 14 136/73 97 03/10/16 07:38 03/10/16 07:38 03/10/16 07:38 03/10/16 07:38 03/10/16 07:38 General appearance: Present: cooperative, A&O X 3, no acute distress, answers questions appropriately - Head Head exam: Present: atraumatic, normocephalic - Eye Eye exam: Present: normal appearance, sclera anicteric - ENT ENT exam: Present: mucous membranes moist - Neck Neck exam general surgery: Present: normal inspection, trachea midline - Respiratory Respiratory exam: Present: CTAB. Absent: rales, rhonchi - Cardiovascular Cardiovascular exam: Present: RRR, +S1, +S2 - GI/Abdominal GI/Abdominal exam: Present: normal bowel sounds, soft, no peritoneal signs - Rectal Rectal exam: Present: deferred - Extremities Exam Extremities exam: Present: warm - Neurological Exam Neurological exam: Present: no focal deficits - Psychiatric Psychiatric exam: Present: normal affect, normal mood - Skin Skin exam: Present: dry, intact, normal color, warm Results - Labs CBC & Chem 7: 03/09/16 06:25 03/09/16 06:25 Labs: Last Result ESR 43 mm/hr (0-10) H 03/02/16 05:35 Calcium 8.6 mg/dL (8.6-10.8) 03/09/16 06:25 C-Reactive Protein 121 mg/L (Less than 5) H 03/02/16 05:35 C. difficile Tox (PCR) Negative (Negative) 03/06/16 19:46 Entire Visit Hgb 12.9 g/dL (12.9-16.9) 03/09/16 06:25 Hct 38.5 % (37.5-50.1) 03/09/16 06:25 PT 14.4 Seconds (9.4-12.1) H 03/02/16 05:35 Lipase < 4 Units/L (8-78) L 03/01/16 20:42 - ABG ABG results: PT/INR, D-dimer PT 14.4 Seconds (9.4-12.1) H 03/02/16 05:35 - VTE Reasons for not Prescribing Prophylaxis: Treatment not Indicated - Low risk for VTE Documentation of Mechanical Device: Intermittent pneumatic compression device Consult Discharge Plan - Plan Referrals: Pastora Gar CNP [Primary Care Provider] - (The office does not open until 1:30. Please call the office and get an appointment scheduled for 5-7 days out from Mar 10, your day of discharge. Thank you.) Reymundo Otero MD [Partnered Physician] - 03/24/16 Prescriptions: Ciprofloxacin [Cipro] 500 mg PO BID #20 tablet MetroNIDAZOLE [Flagyl] 500 mg PO TID #30 tablet Omeprazole [PriLOSEC] 40 mg PO DAILY@0630 #60 capsule. Potassium Chloride 20 meq PO DAILY #10 tab.er.prt PredniSONE 40 mg PO BIDWM #30 tablet
[2016-03-10] MEDS ORDERED: metroNIDAZOLE 500 MG TABLET PO SCH (15:00)
[2016-03-10] MEDS ORDERED: predniSONE 20 MG TABLET PO SCH (17:00)
== END 2016-03-10 13:13 | disposition home or self-care (01) | DRG 387 ==
LOC: EMEROO 19:39 → 3ANU 19:39 → SUATTDRO 03-02 00:46
PROVIDERS: ADMIT Nurse Practitioner Family; ATTEND Internal Medicine
PROC: ENDOCBX (2016-03-04 12:30)

== ENCOUNTER 2019-03-02 15:22 | Observation (INO) ==
[2019-03-02 17:08] LABS: Basophils % 0.2 %; Eosinophils % 0.1 %; Hematocrit 46.8 % (37.5-50.1); Hemoglobin 15.1 g/dL (12.9-16.9); Immature Granulocytes % 0.6 % (0-4); Lymphocytes # 0.9 K/mcL (0.6-4.6); Lymphocytes % 4.9 %; Mean Corpuscular HGB Conc 32.3 g/dL (31.6-35.5); Mean Corpuscular Hemoglobin 29.5 pg (28.0-33.3); Mean Corpuscular Volume 91.4 fL (83.0-100.0); Mean Platelet Volume 9.3 fL (9.4-12.4); Monocytes % 5.3 %; Neutrophils # 16.5 K/mcL (1.6-8.9); Platelet Count 299 K/mcL (140-400); Red Blood Count 5.12 M/mcL (4.19-5.50); Red Cell Distribution Width 16.2 % (11.5-14.5); Segmented Neutrophils % 88.9 %; White Blood Count 18.5 K/mcL (4.3-11.1)
[2019-03-02 17:25] LABS: BUN/Creatinine Ratio 24 (6-26); Blood Urea Nitrogen 24 mg/dL (6-20); Calcium 8.8 mg/dL (8.6-10.3); Carbon Dioxide 20 mEq/L (23-29); Chloride 104 mEq/L (98-107); Glucose 203 mg/dL (70-105); Osmolality,Calculated 290 (280-300); Potassium 3.8 mEq/L (3.5-5.1); Sodium 135 mEq/L (136-145); eGFR For African Americans > 60 (> 60); eGFR For Non-African Americans > 60 (> 60)
[2019-03-02] MEDS ORDERED: Isovue-370 500 ML BOTTLE IVP ONE (18:34)
[2019-03-02] MEDS ORDERED: Hyoscyamine SL 0.125 MG TAB.SUBL SL ONE (18:35)
[2019-03-02] MEDS ORDERED: Ondansetron 4 MG/2 ML VIAL IVP ONE (18:35)
[2019-03-02 20:23] LABS: Bilirubin,Urine Negative (Negative); Blood,Urine Negative (Negative); Clarity,Urine Clear (Clear); Glucose,Urine (UA) Normal (Normal); Ketones,Urine Negative (Negative); Leukocyte Esterase,Urine Negative (Negative); Nitrite,Urine Negative (Negative); Protein,Urine Negative (Neg-Trace); Specific Gravity,Urine > 1.030 (1.010-1.025); Urobilinogen,Urine Normal (Normal)
[2019-03-02 20:27] LABS: Color,Urine Light-Yellow (Yellow)
[2019-03-02] MEDS ORDERED: Ondansetron 4 MG/2 ML VIAL IVP PRN (23:08)
[2019-03-02] MEDS ORDERED: Naloxone 0.4 MG/ML INJ IVP PRN (23:08)
[2019-03-02] MEDS ORDERED: 0.9 % Sodium Chloride 1,000 ML IVC SCH (23:15)
[2019-03-03] MEDS: Ketorolac 15 MG/ML VIAL IVP PRN ×2 (00:14→09:12)
[2019-03-03] MEDS: *HR* HYDROmorphone (PF) 1 MG/ML SYRINGE IVP PRN ×3 (03:40→18:04)
[2019-03-03] MEDS: *HR* Enoxaparin 40 MG/0.4 ML SYRINGE SQ SCH (06:34)
[2019-03-03 06:58] LABS: Basophils % 0.2 %; Eosinophils # 0.1 K/mcL (0.0-0.6); Eosinophils % 0.9 %; Hematocrit 42.2 % (37.5-50.1); Immature Granulocytes % 0.7 % (0-4); Lymphocytes # 1.8 K/mcL (0.6-4.6); Lymphocytes % 14.3 %; Mean Corpuscular HGB Conc 33.2 g/dL (31.6-35.5); Mean Corpuscular Hemoglobin 29.4 pg (28.0-33.3); Mean Corpuscular Volume 88.5 fL (83.0-100.0); Mean Platelet Volume 9.3 fL (9.4-12.4); Monocytes % 8.1 %; Neutrophils # 9.7 K/mcL (1.6-8.9); Platelet Count 235 K/mcL (140-400); Red Blood Count 4.77 M/mcL (4.19-5.50); Red Cell Distribution Width 16.2 % (11.5-14.5); Segmented Neutrophils % 75.8 %; White Blood Count 12.8 K/mcL (4.3-11.1)
[2019-03-03 07:12] LABS: BUN/Creatinine Ratio 31 (6-26); Blood Urea Nitrogen 22 mg/dL (6-20); Calcium 8.2 mg/dL (8.6-10.3); Carbon Dioxide 24 mEq/L (23-29); Chloride 104 mEq/L (98-107); Glucose 85 mg/dL (70-105); Magnesium 2.1 mg/dL (1.6-2.6); Osmolality,Calculated 293 (280-300); Potassium 3.2 mEq/L (3.5-5.1); Sodium 140 mEq/L (136-145); eGFR For African Americans > 60 (> 60); eGFR For Non-African Americans > 60 (> 60)
[2019-03-03] MEDS ORDERED: *HR* Dextrose 50 % in Water (Syg) 50 ML SYRINGE IVP PRN (09:35)
[2019-03-03] MEDS ORDERED: Dextrose Gel 15 GM/37.5 ML TUBE PO PRN ×2 (09:35)
[2019-03-03] MEDS ORDERED: D5% in Water 1,000 ML IVC PRN (09:35)
[2019-03-03] MEDS: Insulin LISPRO 300 UNITS/3 ML VIAL SQ SCH ×2 (12:52→17:31)
[2019-03-03 13:24] LABS: Hematocrit 44.7 % (37.5-50.1); Hemoglobin 14.6 g/dL (12.9-16.9)
[2019-03-03] MEDS ORDERED: Insulin LISPRO 300 UNITS/3 ML VIAL SQ SCH (21:00)
[2019-03-04] MEDS: *HR* HYDROmorphone (PF) 1 MG/ML SYRINGE IVP PRN ×2 (00:59→07:02)
[2019-03-04] MEDS: *HR* Enoxaparin 40 MG/0.4 ML SYRINGE SQ SCH (05:17)
[2019-03-04 06:59] VITALS: BP 138/83
[2019-03-04] MEDS: Insulin LISPRO 300 UNITS/3 ML VIAL SQ SCH (07:35)
[2019-03-04 08:34] LABS: Basophils % 0.2 %; Eosinophils # 0.2 K/mcL (0.0-0.6); Eosinophils % 1.1 %; Hematocrit 42.6 % (37.5-50.1); Hemoglobin 14.4 g/dL (12.9-16.9); Immature Granulocytes % 0.5 % (0-4); Lymphocytes # 1.5 K/mcL (0.6-4.6); Lymphocytes % 10.6 %; Mean Corpuscular HGB Conc 33.8 g/dL (31.6-35.5); Mean Corpuscular Hemoglobin 29.8 pg (28.0-33.3); Mean Corpuscular Volume 88.2 fL (83.0-100.0); Mean Platelet Volume 9.6 fL (9.4-12.4); Monocytes # 1.2 K/mcL (0.0-1.3); Monocytes % 8.8 %; Neutrophils # 10.9 K/mcL (1.6-8.9); Platelet Count 253 K/mcL (140-400); Red Blood Count 4.83 M/mcL (4.19-5.50); Red Cell Distribution Width 15.8 % (11.5-14.5); Segmented Neutrophils % 78.8 %; White Blood Count 13.8 K/mcL (4.3-11.1)
[2019-03-04 08:51] LABS: BUN/Creatinine Ratio 19 (6-26); Blood Urea Nitrogen 14 mg/dL (6-20); Calcium 8.8 mg/dL (8.6-10.3); Carbon Dioxide 21 mEq/L (23-29); Chloride 99 mEq/L (98-107); Glucose 152 mg/dL (70-105); Osmolality,Calculated 277 (280-300); Sodium 132 mEq/L (136-145); eGFR For African Americans > 60 (> 60); eGFR For Non-African Americans > 60 (> 60)
[2019-03-04] MEDS ORDERED: Pregabalin 75 MG CAPSULE PO SCH (09:00)
== END 2019-03-04 11:23 | disposition home or self-care (01) ==
LOC: 3ANU 15:22 → EMEROOARM 15:22 → SUATTDRO 22:57 → 3ANU 23:15
PROVIDERS: ADMIT Internal Medicine; ATTEND Pharmacist

== ENCOUNTER 2019-11-02 21:48 | Inpatient (IN) ==
[2019-11-02] MEDS ORDERED: Isovue-370 500 ML BOTTLE IVP ONE (22:55)
[2019-11-02] MEDS ORDERED: *HR* FentaNYL (PF) 100 MCG/2 ML VIAL IVP ONE (23:20)
[2019-11-02] MEDS ORDERED: Ondansetron 4 MG/2 ML VIAL IVP ONE (23:21)
[2019-11-02] MEDS ORDERED: 0.9 % Sodium Chloride 1,000 ML IVC ONE (23:22)
[2019-11-03 00:34] LABS: Basophils # 0.1 K/mcL (0.0-0.2); Basophils % 0.8 %; Eosinophils # 0.2 K/mcL (0.0-0.6); Eosinophils % 2.8 %; Hematocrit 41.8 % (37.5-50.1); Hemoglobin 13.7 g/dL (12.9-16.9); Immature Granulocytes % 0.4 % (0-4); Lymphocytes # 1.6 K/mcL (0.6-4.6); Lymphocytes % 20.6 %; Mean Corpuscular HGB Conc 32.8 g/dL (31.6-35.5); Mean Corpuscular Hemoglobin 29.2 pg (28.0-33.3); Mean Corpuscular Volume 89.1 fL (83.0-100.0); Mean Platelet Volume 9.8 fL (9.4-12.4); Monocytes % 12.2 %; Platelet Count 249 K/mcL (140-400); Red Blood Count 4.69 M/mcL (4.19-5.50); Red Cell Distribution Width 14.1 % (11.5-14.5); Segmented Neutrophils % 63.2 %
[2019-11-03 00:55] LABS: Alanine Aminotransferase 21 Units/L (7-52); Albumin 3.5 g/dL (3.5-5.7); Albumin/Globulin Ratio 1.1 (1.1-2.2); Alkaline Phosphatase 49 Units/L (34-104); Aspartate Amino Transferase 29 Units/L (13-39); BUN/Creatinine Ratio 10 (6-26); Bilirubin,Direct 0.1 mg/dL (0.0-0.2); Bilirubin,Indirect 0.7 mg/dL (0.0-1.0); Bilirubin,Total 0.8 mg/dL (0.3-1.0); Blood Urea Nitrogen 8 mg/dL (6-20); Calcium 8.7 mg/dL (8.6-10.3); Carbon Dioxide 21 mEq/L (23-29); Chloride 104 mEq/L (98-107); Globulin 3.3 g/dL (2.4-3.5); Glucose 97 mg/dL (70-105); Lipase 9 Units/L (11-82); Osmolality,Calculated 276 (280-300); Potassium 3.7 mEq/L (3.5-5.1); Sodium 134 mEq/L (136-145); Total Protein 6.8 g/dL (6.4-8.9); eGFR For African Americans > 60 (> 60); eGFR For Non-African Americans > 60 (> 60)
[2019-11-03 02:07] LABS: Bilirubin,Urine Negative (Negative); Blood,Urine Negative (Negative); Clarity,Urine Clear (Clear); Color,Urine Yellow (Yellow); Glucose,Urine (UA) Normal (Normal); Ketones,Urine Negative (Negative); Leukocyte Esterase,Urine Negative (Negative); Nitrite,Urine Negative (Negative); PH,Urine 5.5 pH Units (5.0-8.0); Protein,Urine Trace mg/dL (Neg-Trace); Specific Gravity,Urine 1.016 (1.010-1.025); Urobilinogen,Urine Normal (Normal)
[2019-11-03] MEDS ORDERED: Ondansetron 4 MG/2 ML VIAL IVP PRN (03:05)
[2019-11-03] MEDS ORDERED: Naloxone 0.4 MG/ML INJ IVP PRN (03:05)
[2019-11-03] MEDS ORDERED: Ringers Solution, Lactated 1,000 ML IVC SCH (03:15)
[2019-11-03 06:02] LABS: Basophils # 0.1 K/mcL (0.0-0.2); Basophils % 0.6 %; Eosinophils # 0.3 K/mcL (0.0-0.6); Eosinophils % 3.1 %; Hematocrit 43.3 % (37.5-50.1); Hemoglobin 14.4 g/dL (12.9-16.9); Immature Granulocytes % 0.2 % (0-4); Lymphocytes # 1.9 K/mcL (0.6-4.6); Lymphocytes % 21.4 %; Mean Corpuscular HGB Conc 33.3 g/dL (31.6-35.5); Mean Corpuscular Hemoglobin 29.1 pg (28.0-33.3); Mean Corpuscular Volume 87.7 fL (83.0-100.0); Mean Platelet Volume 9.6 fL (9.4-12.4); Monocytes % 11.3 %; Neutrophils # 5.6 K/mcL (1.6-8.9); Platelet Count 274 K/mcL (140-400); Red Blood Count 4.94 M/mcL (4.19-5.50); Segmented Neutrophils % 63.4 %; White Blood Count 8.8 K/mcL (4.3-11.1)
[2019-11-03 06:08] LABS: INR 1.1; Prothrombin Time 12.1 Seconds (9.4-12.1)
[2019-11-03 07:26] LABS: BUN/Creatinine Ratio 8 (6-26); Blood Urea Nitrogen 7 mg/dL (6-20); Calcium 8.8 mg/dL (8.6-10.3); Carbon Dioxide 20 mEq/L (23-29); Chloride 105 mEq/L (98-107); Glucose 122 mg/dL (70-105); Osmolality,Calculated 279 (280-300); Potassium 3.5 mEq/L (3.5-5.1); Sodium 135 mEq/L (136-145); eGFR For African Americans > 60 (> 60); eGFR For Non-African Americans > 60 (> 60)
[2019-11-03] MEDS: MethylPREDNISolone 40 MG/ML VIAL IVP SCH ×2 (08:57→14:52)
[2019-11-03] MEDS ORDERED: Piperacillin/Tazobactam 3.375 GM in 0.9 % Sodium Chloride Mini Bag 100 ML IVPB SCH (10:00)
[2019-11-03] MEDS: Piperacillin/Tazobactam 3.375 GM in 0.9 % Sodium Chloride Mini Bag 100 ML IVPB SCH ×3 (12:33→19:38)
[2019-11-03 19:07] LABS: Adenovirus Not Detected (Not Detect); Bordetella Pertussis Not Detected (Not Detect); Chlamydophila pneumoniae Not Detected (Not Detect); Coronavirus 229E Not Detected (Not Detect); Coronavirus HKU1 Not Detected (Not Detect); Coronavirus NL63 Not Detected (Not Detect); Coronavirus OC43 Not Detected (Not Detect); Human Metapneumovirus Not Detected (Not Detect); Human Rhinovirus/Enterovirus Not Detected (Not Detect); Influenza A Subtype 2009 H1 Not Detected (Not Detect); Influenza B Not Detected (Not Detect); Mycoplasma pneumoniae Not Detected (Not Detect); Parainfluenza Virus 1 Not Detected (Not Detect); Parainfluenza Virus 2 Not Detected (Not Detect); Parainfluenza Virus 3 Not Detected (Not Detect); Parainfluenza Virus 4 Not Detected (Not Detect); Respiratory Syncytial Virus Not Detected (Not Detect); SARS-CoV-2 Not Detected (Not Detect)
[2019-11-03 21:51] LABS: Adenovirus F 40/41 PCR Not detected (Not detect); Astrovirus PCR Not detected (Not detect); C.difficile Toxin A/B Gene PCR Not detected (Not detect); Campylobacter by PCR Not detected (Not detect); Cryptosporidium by PCR Not detected (Not detect); Cyclospora cayetanensis PCR Not detected (Not detect); E. coli O157 by PCR Not detected (Not detect); Entamoeba histolytica PCR Not detected (Not detect); Enteroaggregative E.coli(EAEC) Not detected (Not detect); Enteropathogenic E.coli(EPEC) Not detected (Not detect); Enterotoxigenic E.coli (ETEC) Not detected (Not detect); Giardia lamblia PCR Not detected (Not detect); Norovirus GI/GII PCR Not detected (Not detect); Plesiomonas shigelloides PCR Not detected (Not detect); Rotavirus A PCR Not detected (Not detect); Salmonella PCR Not detected (Not detect); Sapovirus PCR Not detected (Not detect); Shig/EnteroinvasiveE coli EIEC Not detected (Not detect); Shigalike tox-prod E coli STEC Not detected (Not detect); Vibrio PCR Not detected (Not detect); Vibrio cholerae PCR Not detected (Not detect); Yersinia enterocolitica PCR Not detected (Not detect)
[2019-11-04] MEDS: Piperacillin/Tazobactam 3.375 GM in 0.9 % Sodium Chloride Mini Bag 100 ML IVPB SCH ×2 (01:06→09:58)
[2019-11-04] MEDS: MethylPREDNISolone 40 MG/ML VIAL IVP SCH ×4 (01:06→23:21)
[2019-11-04 04:49] LABS: Basophils % 0.1 %; Eosinophils % 0.1 %; Hematocrit 39.4 % (37.5-50.1); Immature Granulocytes % 0.2 % (0-4); Lymphocytes # 1.1 K/mcL (0.6-4.6); Lymphocytes % 13.1 %; Mean Corpuscular HGB Conc 32.5 g/dL (31.6-35.5); Mean Corpuscular Hemoglobin 28.3 pg (28.0-33.3); Mean Corpuscular Volume 87.2 fL (83.0-100.0); Mean Platelet Volume 9.2 fL (9.4-12.4); Monocytes # 0.4 K/mcL (0.0-1.3); Monocytes % 5.3 %; Neutrophils # 6.8 K/mcL (1.6-8.9); Platelet Count 286 K/mcL (140-400); Red Blood Count 4.52 M/mcL (4.19-5.50); Red Cell Distribution Width 13.7 % (11.5-14.5); Segmented Neutrophils % 81.2 %; White Blood Count 8.3 K/mcL (4.3-11.1)
[2019-11-04 04:51] LABS: Hemoglobin 12.8 g/dL (12.9-16.9)
[2019-11-04 05:08] LABS: BUN/Creatinine Ratio 8 (6-26); Blood Urea Nitrogen 6 mg/dL (6-20); Calcium 8.2 mg/dL (8.6-10.3); Carbon Dioxide 23 mEq/L (23-29); Chloride 105 mEq/L (98-107); Glucose 153 mg/dL (70-105); Osmolality,Calculated 281 (280-300); Phosphorous 2.5 mg/dL (2.7-4.5); Potassium 4.2 mEq/L (3.5-5.1); Sodium 135 mEq/L (136-145); eGFR For African Americans > 60 (> 60); eGFR For Non-African Americans > 60 (> 60)
[2019-11-04] MEDS: *HR* Enoxaparin 40 MG/0.4 ML SYRINGE SQ SCH (05:49)
[2019-11-04] MEDS ORDERED: Lidocaine -MPF 2% 2 ML VIAL ONE (08:23)
[2019-11-04] MEDS ORDERED: *HR* Propofol 200 MG/20 ML VIAL IVP ONE (08:24)
[2019-11-04] MEDS ORDERED: Acetaminophen 325 MG TABLET PO PRN (12:41)
[2019-11-05] MEDS: MethylPREDNISolone 40 MG/ML VIAL IVP SCH ×2 (07:20→15:34)
[2019-11-05] MEDS: *HR* Enoxaparin 40 MG/0.4 ML SYRINGE SQ SCH (07:21)
[2019-11-06] MEDS: MethylPREDNISolone 40 MG/ML VIAL IVP SCH ×3 (01:02→15:29)
[2019-11-06 05:00] LABS: Basophils % 0.3 %; Hematocrit 40.6 % (37.5-50.1); Hemoglobin 13.2 g/dL (12.9-16.9); Immature Granulocytes % 2.2 % (0-4); Lymphocytes % 8.8 %; Mean Corpuscular HGB Conc 32.5 g/dL (31.6-35.5); Mean Corpuscular Hemoglobin 29.1 pg (28.0-33.3); Mean Corpuscular Volume 89.6 fL (83.0-100.0); Mean Platelet Volume 9.4 fL (9.4-12.4); Monocytes # 0.9 K/mcL (0.0-1.3); Monocytes % 6.4 %; Neutrophils # 11.7 K/mcL (1.6-8.9); Nucleated Red Blood Cells 0.1 /100 WBC (0); Platelet Count 273 K/mcL (140-400); Red Blood Count 4.53 M/mcL (4.19-5.50); Red Cell Distribution Width 13.7 % (11.5-14.5); Segmented Neutrophils % 82.3 %
[2019-11-06 05:04] LABS: Lymphocytes # 1.3 K/mcL (0.6-4.6); White Blood Count 14.2 K/mcL (4.3-11.1)
[2019-11-06 05:18] LABS: Phosphorous 1.1 mg/dL (2.7-4.5)
[2019-11-06 05:20] LABS: BUN/Creatinine Ratio 17 (6-26); Blood Urea Nitrogen 13 mg/dL (6-20); Calcium 8.7 mg/dL (8.6-10.3); Carbon Dioxide 24 mEq/L (23-29); Chloride 104 mEq/L (98-107); Glucose 226 mg/dL (70-105); Osmolality,Calculated 285 (280-300); Potassium 4.1 mEq/L (3.5-5.1); Sodium 134 mEq/L (136-145); eGFR For African Americans > 60 (> 60); eGFR For Non-African Americans > 60 (> 60)
[2019-11-06] MEDS: *HR* Enoxaparin 40 MG/0.4 ML SYRINGE SQ SCH (05:30)
[2019-11-07] MEDS: MethylPREDNISolone 40 MG/ML VIAL IVP SCH ×2 (00:07→07:45)
[2019-11-07 01:30] LABS: Hematocrit 41.2 % (37.5-50.1); Hemoglobin 13.3 g/dL (12.9-16.9); Mean Corpuscular HGB Conc 32.3 g/dL (31.6-35.5); Mean Corpuscular Hemoglobin 28.1 pg (28.0-33.3); Mean Corpuscular Volume 86.9 fL (83.0-100.0); Mean Platelet Volume 9.3 fL (9.4-12.4); Platelet Count 305 K/mcL (140-400); Red Blood Count 4.74 M/mcL (4.19-5.50); Red Cell Distribution Width 13.6 % (11.5-14.5); White Blood Count 16.6 K/mcL (4.3-11.1)
[2019-11-07 01:42] LABS: BUN/Creatinine Ratio 22 (6-26); Blood Urea Nitrogen 17 mg/dL (6-20); Calcium 8.7 mg/dL (8.6-10.3); Carbon Dioxide 24 mEq/L (23-29); Chloride 106 mEq/L (98-107); Glucose 154 mg/dL (70-105); Osmolality,Calculated 291 (280-300); Phosphorous 2.5 mg/dL (2.7-4.5); Potassium 3.7 mEq/L (3.5-5.1); Sodium 138 mEq/L (136-145); eGFR For African Americans > 60 (> 60); eGFR For Non-African Americans > 60 (> 60)
[2019-11-07 01:56] LABS: Monocytes # 0.7 K/mcL (0.0-1.3); Neutrophils # 11.6 K/mcL (1.6-8.9); Platelet Estimate Normal (Normal); Reactive Lymphocytes Present (Not Present)
[2019-11-07] MEDS: *HR* Enoxaparin 40 MG/0.4 ML SYRINGE SQ SCH (06:08)
[2019-11-07 10:28] VITALS: BP 147/87
== END 2019-11-07 16:35 | disposition home or self-care (01) | DRG 387 ==
LOC: EMEROOARM 21:48 → 3NENU 21:48 → SUATTDRO 11-03 16:46
PROVIDERS: ADMIT Internal Medicine; ATTEND Internal Medicine

== ENCOUNTER 2020-06-26 10:31 | Inpatient (IN) ==
[2020-06-26] MEDS ORDERED: Acetaminophen 325 MG TABLET PO PRN (14:01)
[2020-06-26] MEDS ORDERED: Melatonin 3 MG TABLET PO PRN (14:01)
[2020-06-26] MEDS ORDERED: Naloxone 0.4 MG/ML INJ IVP PRN (14:01)
[2020-06-26] MEDS: Ringers Solution, Lactated 1,000 ML IVC SCH (14:44)
[2020-06-26] MEDS: *HR* HYDROcodone/Acet 5/325 mg TABLET PO PRN ×2 (14:46→21:14)
[2020-06-26] MEDS ORDERED: Dextrose Gel 15 GM/37.5 ML TUBE PO PRN ×2 (18:41)
[2020-06-26] MEDS ORDERED: *HR* Dextrose 50 % in Water (Vial) 50 ML VIAL IVP PRN (18:41)
[2020-06-26] MEDS ORDERED: D5% in Water 1,000 ML IVC PRN (18:41)
[2020-06-26] MEDS: Ondansetron 4 MG/2 ML VIAL IVP PRN (22:38)
[2020-06-27] MEDS: *HR* HYDROcodone/Acet 5/325 mg TABLET PO PRN ×4 (03:29→20:09)
[2020-06-27] MEDS: Ringers Solution, Lactated 1,000 ML IVC SCH (03:30)
[2020-06-27] MEDS: *HR* Enoxaparin 40 MG/0.4 ML SYRINGE SQ SCH (05:14)
[2020-06-27] MEDS ORDERED: Morphine Sulfate 2 MG/ML SYRINGE IVP ONE (05:47)
[2020-06-27 07:10] LABS: Hematocrit 42.5 % (37.5-50.1); Hemoglobin 14.1 g/dL (12.9-16.9); Mean Corpuscular HGB Conc 33.2 g/dL (31.6-35.5); Mean Corpuscular Hemoglobin 28.2 pg (28.0-33.3); Mean Platelet Volume 9.8 fL (9.4-12.4); Platelet Count 284 K/mcL (140-400); Red Cell Distribution Width 14.6 % (11.5-14.5); White Blood Count 10.8 K/mcL (4.3-11.1)
[2020-06-27] MEDS: Budesonide/Formoterol 160/4.5 1 PUFF INH IH SCH ×2 (07:37→09:10)
[2020-06-27 07:43] LABS: BUN/Creatinine Ratio 11 (6-26); Blood Urea Nitrogen 8 mg/dL (6-20); Calcium 8.8 mg/dL (8.6-10.3); Carbon Dioxide 22 mEq/L (23-29); Chloride 103 mEq/L (98-107); Glucose 118 mg/dL (70-105); Magnesium 1.8 mg/dL (1.6-2.6); Osmolality,Calculated 281 (280-300); Phosphorous 3.5 mg/dL (2.7-4.5); Potassium 3.4 mEq/L (3.5-5.1); Sodium 136 mEq/L (136-145); eGFR For African Americans > 60 (> 60); eGFR For Non-African Americans > 60 (> 60)
[2020-06-27] MEDS ORDERED: (Budesonide [Entocort Ec] 3 MG Capdr...Er) PO SCH (09:00)
[2020-06-27] MEDS ORDERED: methylPREDNISolone 125 MG/2 ML VIAL IVP ONE (12:00)
[2020-06-27] MEDS: Ondansetron 4 MG/2 ML VIAL IVP PRN (13:07)
[2020-06-27 19:47] LABS: Adenovirus F 40/41 PCR Not detected (Not detect); Astrovirus PCR Not detected (Not detect); C.difficile Toxin A/B Gene PCR Not detected (Not detect); Campylobacter by PCR Not detected (Not detect); Cryptosporidium by PCR Not detected (Not detect); Cyclospora cayetanensis PCR Not detected (Not detect); E. coli O157 by PCR Not detected (Not detect); Entamoeba histolytica PCR Not detected (Not detect); Enteroaggregative E.coli(EAEC) Not detected (Not detect); Enteropathogenic E.coli(EPEC) Not detected (Not detect); Enterotoxigenic E.coli (ETEC) Not detected (Not detect); Giardia lamblia PCR Not detected (Not detect); Norovirus GI/GII PCR Not detected (Not detect); Plesiomonas shigelloides PCR Not detected (Not detect); Rotavirus A PCR Not detected (Not detect); Salmonella PCR Not detected (Not detect); Sapovirus PCR Not detected (Not detect); Shig/EnteroinvasiveE coli EIEC Not detected (Not detect); Shigalike tox-prod E coli STEC Not detected (Not detect); Vibrio PCR Not detected (Not detect); Vibrio cholerae PCR Not detected (Not detect); Yersinia enterocolitica PCR Not detected (Not detect)
[2020-06-28] MEDS: *HR* HYDROcodone/Acet 5/325 mg TABLET PO PRN ×5 (01:09→20:57)
[2020-06-28] MEDS: *HR* Enoxaparin 40 MG/0.4 ML SYRINGE SQ SCH (05:10)
[2020-06-28] MEDS: MethylPREDNISolone 40 MG/ML VIAL IVP SCH ×3 (08:59→23:18)
[2020-06-28] MEDS: Ondansetron 4 MG/2 ML VIAL IVP PRN (10:28)
[2020-06-29] MEDS: Ondansetron 4 MG/2 ML VIAL IVP PRN (01:22)
[2020-06-29] MEDS: *HR* HYDROcodone/Acet 5/325 mg TABLET PO PRN ×6 (01:22→23:36)
[2020-06-29] MEDS: *HR* Enoxaparin 40 MG/0.4 ML SYRINGE SQ SCH (04:54)
[2020-06-29] MEDS: MethylPREDNISolone 40 MG/ML VIAL IVP SCH ×3 (09:46→23:06)
[2020-06-29] MEDS ORDERED: Ketorolac 30 MG/ML VIAL IVP ONE (21:08)
[2020-06-30] MEDS: Ondansetron 4 MG/2 ML VIAL IVP PRN (04:53)
[2020-06-30] MEDS: *HR* HYDROcodone/Acet 5/325 mg TABLET PO PRN (04:53)
[2020-06-30] MEDS: *HR* Enoxaparin 40 MG/0.4 ML SYRINGE SQ SCH (04:54)
[2020-06-30 07:23] VITALS: BP 122/78
== END 2020-06-30 10:46 | disposition home or self-care (01) | DRG 386 ==
LOC: 3ANU → SUATTDRO 13:42 → 3BNU 06-27 00:03
PROVIDERS: ADMIT Internal Medicine; ATTEND Registered Nurse

== ENCOUNTER 2021-02-21 21:09 | Inpatient (IN) ==
[2021-02-22] MEDS ORDERED: Naloxone 0.4 MG/ML INJ IVP PRN (06:28)
[2021-02-22 08:01] LABS: Hematocrit 29.9 % (37.5-50.1); Hemoglobin 8.6 g/dL (12.9-16.9); Mean Corpuscular HGB Conc 28.8 g/dL (31.6-35.5); Mean Corpuscular Hemoglobin 26.3 pg (28.0-33.3); Mean Corpuscular Volume 91.4 fL (83.0-100.0); Mean Platelet Volume 9.4 fL (9.4-12.4); Platelet Count 427 K/mcL (140-400); Red Blood Count 3.27 M/mcL (4.19-5.50); Red Cell Distribution Width 18.8 % (11.5-14.5)
[2021-02-22 08:07] LABS: INR 1.2; Prothrombin Time 13.6 Seconds (9.4-12.1)
[2021-02-22 08:09] LABS: Activated Partial Thrombo Time 33.5 Seconds (26.0-36.0)
[2021-02-22 08:10] LABS: Alanine Aminotransferase 9 Units/L (7-52); Albumin 2.6 g/dL (3.5-5.7); Albumin/Globulin Ratio 0.6 (1.1-2.2); Alkaline Phosphatase 94 Units/L (34-104); Aspartate Amino Transferase 14 Units/L (13-39); BUN/Creatinine Ratio 26 (6-26); Bilirubin,Total 0.3 mg/dL (0.3-1.0); Blood Urea Nitrogen 15 mg/dL (6-20); Calcium 8.5 mg/dL (8.6-10.3); Carbon Dioxide 31 mEq/L (23-29); Chloride 105 mEq/L (98-107); Globulin 4.4 g/dL (2.4-3.5); Glucose 87 mg/dL (70-105); Magnesium 1.9 mg/dL (1.6-2.6); Osmolality,Calculated 282 (280-300); Phosphorous 4.2 mg/dL (2.7-4.5); Potassium 3.5 mEq/L (3.5-5.1); Sodium 136 mEq/L (136-145); eGFR For African Americans > 60 (> 60); eGFR For Non-African Americans > 60 (> 60)
[2021-02-22] MEDS: Piperacillin/Tazobactam 3.375 GM in 0.9 % Sodium Chloride Mini Bag 100 ML IVPB SCH ×3 (09:16→23:59)
[2021-02-22] MEDS ORDERED: Dextrose Gel 15 GM/37.5 ML TUBE PO PRN ×2 (09:19)
[2021-02-22] MEDS ORDERED: *HR* Dextrose 50 % in Water (Syg) 50 ML SYRINGE IVP PRN (09:19)
[2021-02-22] MEDS ORDERED: D5% in Water 1,000 ML IVC PRN (09:19)
[2021-02-22 10:07] LABS: Eosinophils # 0.2 K/mcL (0.0-0.6); Lymphocytes # 1.4 K/mcL (0.6-4.6); Monocytes # 0.7 K/mcL (0.0-1.3); Neutrophils # 9.6 K/mcL (1.6-8.9); Toxic Granulation Present (Not Present)
[2021-02-22 10:08] LABS: Anisocytosis 1+ (Not Present); Hypochromasia Present (Not Present)
[2021-02-22 10:09] LABS: Polychromasia 1+ (Not Present)
[2021-02-22] MEDS ORDERED: *HR* HYDROmorphone 2 MG TABLET PO PRN (11:27)
[2021-02-22] MEDS ORDERED: *HR* Labetalol 20 MG/4 ML SYRINGE IVP PRN (11:27)
[2021-02-22] MEDS ORDERED: Acetaminophen IV 1,000 MG/100 ML BAG IVPB ONE (11:27)
[2021-02-22] MEDS ORDERED: *HR* HYDROmorphone (PF) 1 MG/ML SYRINGE IVP PRN (11:27)
[2021-02-22] MEDS ORDERED: *HR* OxyCODONE Immed Rel 5 MG TABLET PO PRN (11:27)
[2021-02-22] MEDS ORDERED: Famotidine 20 MG/2 ML VIAL IVP ONE (11:27)
[2021-02-22] MEDS: Insulin LISPRO 300 UNITS/3 ML VIAL SUBQ SCH ×3 (14:07→23:58)
[2021-02-22] MEDS: Morphine Sulfate 2 MG/ML SYRINGE IVP PRN ×2 (15:26→21:27)
[2021-02-22] MEDS: *HR* Heparin 5,000 UNIT/ML VIAL SQ SCH ×2 (15:26→21:26)
[2021-02-23] MEDS: Morphine Sulfate 2 MG/ML SYRINGE IVP PRN ×3 (03:34→15:39)
[2021-02-23] MEDS: *HR* Heparin 5,000 UNIT/ML VIAL SQ SCH ×2 (06:04→13:14)
[2021-02-23] MEDS: Insulin LISPRO 300 UNITS/3 ML VIAL SUBQ SCH ×3 (06:04→18:18)
[2021-02-23] MEDS: Piperacillin/Tazobactam 3.375 GM in 0.9 % Sodium Chloride Mini Bag 100 ML IVPB SCH ×2 (09:29→15:39)
[2021-02-23 10:02] LABS: Basophils # 0.1 K/mcL (0.0-0.2); Basophils % 0.5 %; Eosinophils # 0.5 K/mcL (0.0-0.6); Eosinophils % 4.9 %; Hematocrit 25.4 % (37.5-50.1); Hemoglobin 7.4 g/dL (12.9-16.9); Immature Granulocytes % 0.4 % (0-4); Lymphocytes # 2.1 K/mcL (0.6-4.6); Lymphocytes % 19.5 %; Mean Corpuscular HGB Conc 29.1 g/dL (31.6-35.5); Mean Corpuscular Hemoglobin 26.5 pg (28.0-33.3); Mean Platelet Volume 9.6 fL (9.4-12.4); Monocytes # 0.9 K/mcL (0.0-1.3); Monocytes % 8.7 %; Neutrophils # 7.1 K/mcL (1.6-8.9); Platelet Count 377 K/mcL (140-400); Red Blood Count 2.79 M/mcL (4.19-5.50); Red Cell Distribution Width 18.5 % (11.5-14.5); White Blood Count 10.7 K/mcL (4.3-11.1)
[2021-02-23 10:08] LABS: BUN/Creatinine Ratio 27 (6-26); Blood Urea Nitrogen 16 mg/dL (6-20); Calcium 8.3 mg/dL (8.6-10.3); Carbon Dioxide 31 mEq/L (23-29); Chloride 103 mEq/L (98-107); Glucose 119 mg/dL (70-105); Magnesium 1.9 mg/dL (1.6-2.6); Osmolality,Calculated 294 (280-300); Potassium 3.7 mEq/L (3.5-5.1); Sodium 141 mEq/L (136-145); eGFR For African Americans > 60 (> 60); eGFR For Non-African Americans > 60 (> 60)
[2021-02-23] MEDS ORDERED: clonazePAM 0.5 MG TABLET GTUBE PRN (17:08)
[2021-02-23] MEDS: clonazePAM 0.5 MG TABLET GTUBE SCH (18:23)
[2021-02-23] MEDS: GuaiFENesin Liq 200 MG/10 ML UDC GTUBE SCH (18:23)
[2021-02-23] MEDS: QUEtiapine Fumarate 100 MG TABLET GTUBE SCH (20:59)
[2021-02-23] MEDS: Melatonin 3 MG TABLET GTUBE SCH (20:59)
[2021-02-24] MEDS: Insulin LISPRO 300 UNITS/3 ML VIAL SUBQ SCH ×4 (00:05→18:44)
[2021-02-24] MEDS: Piperacillin/Tazobactam 3.375 GM in 0.9 % Sodium Chloride Mini Bag 100 ML IVPB SCH ×3 (00:10→17:06)
[2021-02-24] MEDS: Morphine Sulfate 2 MG/ML SYRINGE IVP PRN ×3 (00:11→15:01)
[2021-02-24] MEDS: GuaiFENesin Liq 200 MG/10 ML UDC GTUBE SCH ×3 (01:35→17:06)
[2021-02-24] MEDS: clonazePAM 0.5 MG TABLET GTUBE SCH ×3 (01:35→17:06)
[2021-02-24 05:51] LABS: Basophils # 0.1 K/mcL (0.0-0.2); Basophils % 0.5 %; Eosinophils # 0.6 K/mcL (0.0-0.6); Eosinophils % 5.9 %; Hematocrit 26.8 % (37.5-50.1); Hemoglobin 7.9 g/dL (12.9-16.9); Immature Granulocytes % 0.3 % (0-4); Lymphocytes # 1.8 K/mcL (0.6-4.6); Lymphocytes % 18.4 %; Mean Corpuscular HGB Conc 29.5 g/dL (31.6-35.5); Mean Corpuscular Hemoglobin 26.6 pg (28.0-33.3); Mean Corpuscular Volume 90.2 fL (83.0-100.0); Mean Platelet Volume 9.2 fL (9.4-12.4); Monocytes # 0.8 K/mcL (0.0-1.3); Monocytes % 8.2 %; Neutrophils # 6.6 K/mcL (1.6-8.9); Platelet Count 360 K/mcL (140-400); Red Blood Count 2.97 M/mcL (4.19-5.50); Red Cell Distribution Width 18.5 % (11.5-14.5); Segmented Neutrophils % 66.7 %; White Blood Count 9.9 K/mcL (4.3-11.1)
[2021-02-24 06:08] LABS: BUN/Creatinine Ratio 22 (6-26); Blood Urea Nitrogen 13 mg/dL (6-20); Calcium 8.6 mg/dL (8.6-10.3); Carbon Dioxide 30 mEq/L (23-29); Chloride 103 mEq/L (98-107); Glucose 115 mg/dL (70-105); Magnesium 1.8 mg/dL (1.6-2.6); Osmolality,Calculated 289 (280-300); Phosphorous 3.7 mg/dL (2.7-4.5); Potassium 3.4 mEq/L (3.5-5.1); Sodium 139 mEq/L (136-145); eGFR For African Americans > 60 (> 60); eGFR For Non-African Americans > 60 (> 60)
[2021-02-24] MEDS ORDERED: Potassium Chloride Elixir 20 MEQ/15 ML UDC GTUBE ONE (07:19)
[2021-02-24] MEDS: QUEtiapine Fumarate 25 MG TABLET GTUBE SCH (08:38)
[2021-02-24] MEDS: *HR* Digoxin 0.125 MG TABLET GTUBE SCH (08:38)
[2021-02-24] MEDS: polyethylene glycoL 3350 17 GM POWD.PACK GTUBE SCH (08:38)
[2021-02-24] MEDS: Aspirin 81 MG TAB.CHEW GTUBE SCH (08:38)
[2021-02-24] MEDS: QUEtiapine Fumarate 100 MG TABLET GTUBE SCH (20:08)
[2021-02-24] MEDS: Melatonin 3 MG TABLET GTUBE SCH (20:08)
[2021-02-25] MEDS: Insulin LISPRO 300 UNITS/3 ML VIAL SUBQ SCH ×4 (00:51→18:03)
[2021-02-25] MEDS: Piperacillin/Tazobactam 3.375 GM in 0.9 % Sodium Chloride Mini Bag 100 ML IVPB SCH ×3 (00:59→16:45)
[2021-02-25] MEDS: GuaiFENesin Liq 200 MG/10 ML UDC GTUBE SCH ×3 (00:59→16:45)
[2021-02-25] MEDS: clonazePAM 0.5 MG TABLET GTUBE SCH ×3 (01:00→16:45)
[2021-02-25] MEDS: Morphine Sulfate 2 MG/ML SYRINGE IVP PRN ×3 (01:00→16:45)
[2021-02-25 06:18] LABS: Basophils # 0.1 K/mcL (0.0-0.2); Basophils % 0.4 %; Eosinophils # 0.7 K/mcL (0.0-0.6); Eosinophils % 5.3 %; Hematocrit 26.5 % (37.5-50.1); Hemoglobin 7.8 g/dL (12.9-16.9); Immature Granulocytes % 0.3 % (0-4); Lymphocytes # 2.1 K/mcL (0.6-4.6); Lymphocytes % 16.4 %; Mean Corpuscular HGB Conc 29.4 g/dL (31.6-35.5); Mean Corpuscular Hemoglobin 26.8 pg (28.0-33.3); Mean Corpuscular Volume 91.1 fL (83.0-100.0); Mean Platelet Volume 9.3 fL (9.4-12.4); Monocytes # 0.9 K/mcL (0.0-1.3); Monocytes % 6.8 %; Platelet Count 380 K/mcL (140-400); Red Blood Count 2.91 M/mcL (4.19-5.50); Red Cell Distribution Width 18.5 % (11.5-14.5); Segmented Neutrophils % 70.8 %; White Blood Count 12.7 K/mcL (4.3-11.1)
[2021-02-25 06:37] LABS: BUN/Creatinine Ratio 19 (6-26); Blood Urea Nitrogen 11 mg/dL (6-20); Calcium 8.4 mg/dL (8.6-10.3); Carbon Dioxide 29 mEq/L (23-29); Chloride 104 mEq/L (98-107); Glucose 104 mg/dL (70-105); Magnesium 1.8 mg/dL (1.6-2.6); Osmolality,Calculated 288 (280-300); Potassium 3.6 mEq/L (3.5-5.1); Sodium 139 mEq/L (136-145); eGFR For African Americans > 60 (> 60); eGFR For Non-African Americans > 60 (> 60)
[2021-02-25] MEDS: Aspirin 81 MG TAB.CHEW GTUBE SCH (07:53)
[2021-02-25] MEDS: polyethylene glycoL 3350 17 GM POWD.PACK GTUBE SCH (07:53)
[2021-02-25] MEDS: *HR* Digoxin 0.125 MG TABLET GTUBE SCH (07:53)
[2021-02-25] MEDS: QUEtiapine Fumarate 25 MG TABLET GTUBE SCH (07:53)
[2021-02-25] MEDS ORDERED: Isovue-300 50ML VIAL IVP ONE (12:17)
[2021-02-25] MEDS: Melatonin 3 MG TABLET GTUBE SCH (21:49)
[2021-02-25] MEDS: QUEtiapine Fumarate 100 MG TABLET GTUBE SCH (21:54)
[2021-02-25] MEDS: DAPTOmycin 750 MG in 0.9 % Sodium Chloride 100 ML IVPB SCH (22:17)
[2021-02-26] MEDS: Morphine Sulfate 2 MG/ML SYRINGE IVP PRN ×3 (01:36→16:43)
[2021-02-26] MEDS: GuaiFENesin Liq 200 MG/10 ML UDC GTUBE SCH ×3 (01:37→16:42)
[2021-02-26] MEDS: Piperacillin/Tazobactam 3.375 GM in 0.9 % Sodium Chloride Mini Bag 100 ML IVPB SCH ×3 (01:37→16:44)
[2021-02-26] MEDS: Insulin LISPRO 300 UNITS/3 ML VIAL SUBQ SCH ×4 (01:38→18:03)
[2021-02-26] MEDS: clonazePAM 0.5 MG TABLET GTUBE SCH ×3 (01:38→16:43)
[2021-02-26 07:00] LABS: Immature Granulocytes % 0.3 % (0-4); Red Cell Distribution Width 18.6 % (11.5-14.5)
[2021-02-26 07:02] LABS: Basophils # 0.1 K/mcL (0.0-0.2); Basophils % 0.6 %; Eosinophils # 0.9 K/mcL (0.0-0.6); Hematocrit 26.1 % (37.5-50.1); Hemoglobin 7.4 g/dL (12.9-16.9); Lymphocytes # 1.7 K/mcL (0.6-4.6); Mean Corpuscular HGB Conc 28.4 g/dL (31.6-35.5); Mean Corpuscular Volume 91.6 fL (83.0-100.0); Mean Platelet Volume 9.1 fL (9.4-12.4); Monocytes # 0.8 K/mcL (0.0-1.3); Monocytes % 7.3 %; Neutrophils # 7.3 K/mcL (1.6-8.9); Platelet Count 323 K/mcL (140-400); Red Blood Count 2.85 M/mcL (4.19-5.50); Segmented Neutrophils % 67.8 %; White Blood Count 10.8 K/mcL (4.3-11.1)
[2021-02-26 07:12] LABS: BUN/Creatinine Ratio 20 (6-26); Blood Urea Nitrogen 12 mg/dL (6-20); Calcium 8.2 mg/dL (8.6-10.3); Carbon Dioxide 29 mEq/L (23-29); Chloride 104 mEq/L (98-107); Glucose 127 mg/dL (70-105); Magnesium 1.6 mg/dL (1.6-2.6); Osmolality,Calculated 285 (280-300); Phosphorous 3.6 mg/dL (2.7-4.5); Potassium 3.6 mEq/L (3.5-5.1); Sodium 137 mEq/L (136-145); eGFR For African Americans > 60 (> 60); eGFR For Non-African Americans > 60 (> 60)
[2021-02-26] MEDS: *HR* Digoxin 0.125 MG TABLET GTUBE SCH (08:20)
[2021-02-26] MEDS: Aspirin 81 MG TAB.CHEW GTUBE SCH (08:20)
[2021-02-26] MEDS: QUEtiapine Fumarate 25 MG TABLET GTUBE SCH (08:20)
[2021-02-26] MEDS: DAPTOmycin 750 MG in 0.9 % Sodium Chloride 100 ML IVPB SCH (22:02)
[2021-02-26] MEDS: QUEtiapine Fumarate 100 MG TABLET GTUBE SCH (22:03)
[2021-02-26] MEDS: Melatonin 3 MG TABLET GTUBE SCH (22:03)
[2021-02-26] MEDS ORDERED: Ketorolac 30 MG/ML VIAL IVP ONE (22:19)
[2021-02-27] MEDS: GuaiFENesin Liq 200 MG/10 ML UDC GTUBE SCH ×3 (00:21→16:21)
[2021-02-27] MEDS: Piperacillin/Tazobactam 3.375 GM in 0.9 % Sodium Chloride Mini Bag 100 ML IVPB SCH ×4 (00:21→23:13)
[2021-02-27] MEDS: clonazePAM 0.5 MG TABLET GTUBE SCH ×3 (00:21→16:21)
[2021-02-27] MEDS: Insulin LISPRO 300 UNITS/3 ML VIAL SUBQ SCH ×5 (00:46→23:53)
[2021-02-27] MEDS: Morphine Sulfate 2 MG/ML SYRINGE IVP PRN ×2 (08:17→15:35)
[2021-02-27] MEDS: *HR* Digoxin 0.125 MG TABLET GTUBE SCH (08:18)
[2021-02-27] MEDS: Aspirin 81 MG TAB.CHEW GTUBE SCH (08:18)
[2021-02-27] MEDS: QUEtiapine Fumarate 25 MG TABLET GTUBE SCH (08:18)
[2021-02-27] MEDS: QUEtiapine Fumarate 100 MG TABLET GTUBE SCH (21:11)
[2021-02-27] MEDS: Melatonin 3 MG TABLET GTUBE SCH (21:11)
[2021-02-27] MEDS: DAPTOmycin 750 MG in 0.9 % Sodium Chloride 100 ML IVPB SCH ×2 (22:14→23:08)
[2021-02-28] MEDS: Morphine Sulfate 2 MG/ML SYRINGE IVP PRN ×2 (00:12→06:29)
[2021-02-28] MEDS: GuaiFENesin Liq 200 MG/10 ML UDC GTUBE SCH ×3 (01:20→17:48)
[2021-02-28] MEDS: clonazePAM 0.5 MG TABLET GTUBE SCH ×3 (01:20→17:48)
[2021-02-28] MEDS: Insulin LISPRO 300 UNITS/3 ML VIAL SUBQ SCH ×4 (05:32→23:38)
[2021-02-28] MEDS: *HR* Digoxin 0.125 MG TABLET GTUBE SCH (10:57)
[2021-02-28] MEDS: Aspirin 81 MG TAB.CHEW GTUBE SCH (10:57)
[2021-02-28] MEDS: QUEtiapine Fumarate 25 MG TABLET GTUBE SCH (10:57)
[2021-02-28] MEDS: Piperacillin/Tazobactam 3.375 GM in 0.9 % Sodium Chloride Mini Bag 100 ML IVPB SCH ×2 (10:58→22:05)
[2021-02-28] MEDS: Ondansetron 4 MG/2 ML VIAL IVP PRN (11:06)
[2021-02-28] MEDS: *HR* OxyCODONE Oral Soln 5 MG/5 ML UD.LIQ GTUBE PRN ×2 (13:44→22:04)
[2021-02-28] MEDS ORDERED: Isovue-370 500 ML BOTTLE IVP ONE (13:45)
[2021-02-28] MEDS: QUEtiapine Fumarate 100 MG TABLET GTUBE SCH (22:05)
[2021-02-28] MEDS: Melatonin 3 MG TABLET GTUBE SCH (22:05)
[2021-03-01] MEDS: GuaiFENesin Liq 200 MG/10 ML UDC GTUBE SCH ×3 (02:23→17:35)
[2021-03-01] MEDS: clonazePAM 0.5 MG TABLET GTUBE SCH ×3 (02:23→17:34)
[2021-03-01] MEDS: Piperacillin/Tazobactam 3.375 GM in 0.9 % Sodium Chloride Mini Bag 100 ML IVPB SCH ×3 (05:12→21:52)
[2021-03-01] MEDS: *HR* OxyCODONE Oral Soln 5 MG/5 ML UD.LIQ GTUBE PRN ×3 (05:13→21:51)
[2021-03-01 07:05] LABS: Hematocrit 26.6 % (37.5-50.1); Hemoglobin 7.8 g/dL (12.9-16.9); Mean Corpuscular HGB Conc 29.3 g/dL (31.6-35.5); Mean Corpuscular Hemoglobin 26.4 pg (28.0-33.3); Mean Corpuscular Volume 89.9 fL (83.0-100.0); Mean Platelet Volume 9.4 fL (9.4-12.4); Platelet Count 362 K/mcL (140-400); Red Blood Count 2.96 M/mcL (4.19-5.50); Red Cell Distribution Width 18.2 % (11.5-14.5); White Blood Count 8.9 K/mcL (4.3-11.1)
[2021-03-01] MEDS: Insulin LISPRO 300 UNITS/3 ML VIAL SUBQ SCH ×3 (07:27→18:07)
[2021-03-01 07:45] LABS: Alanine Aminotransferase 5 Units/L (7-52); Albumin 2.5 g/dL (3.5-5.7); Albumin/Globulin Ratio 0.6 (1.1-2.2); Alkaline Phosphatase 69 Units/L (34-104); Aspartate Amino Transferase 7 Units/L (13-39); BUN/Creatinine Ratio 18 (6-26); Bilirubin,Direct 0.1 mg/dL (0.0-0.2); Bilirubin,Indirect 0.2 mg/dL (0.0-1.0); Bilirubin,Total 0.3 mg/dL (0.3-1.0); Blood Urea Nitrogen 10 mg/dL (6-20); Calcium 7.9 mg/dL (8.6-10.3); Carbon Dioxide 26 mEq/L (23-29); Chloride 106 mEq/L (98-107); Glucose 81 mg/dL (70-105); Magnesium 1.7 mg/dL (1.6-2.6); Osmolality,Calculated 288 (280-300); Potassium 3.1 mEq/L (3.5-5.1); Sodium 140 mEq/L (136-145); Total Protein 6.5 g/dL (6.4-8.9); eGFR For African Americans > 60 (> 60); eGFR For Non-African Americans > 60 (> 60)
[2021-03-01] MEDS: QUEtiapine Fumarate 25 MG TABLET GTUBE SCH (09:37)
[2021-03-01] MEDS: Aspirin 81 MG TAB.CHEW GTUBE SCH (09:37)
[2021-03-01] MEDS: *HR* Digoxin 0.125 MG TABLET GTUBE SCH (09:37)
[2021-03-01] MEDS ORDERED: Potassium Chloride Elixir 20 MEQ/15 ML UDC GTUBE ONE (15:09)
[2021-03-01] MEDS ORDERED: Magnesium Sulfate 1 GM/102 ML PIGGYBACK IVPB ONE (16:51)
[2021-03-01] MEDS: DAPTOmycin 750 MG in 0.9 % Sodium Chloride 100 ML IVPB SCH (21:52)
[2021-03-01] MEDS: Melatonin 3 MG TABLET GTUBE SCH (21:53)
[2021-03-01] MEDS: QUEtiapine Fumarate 100 MG TABLET GTUBE SCH (21:53)
[2021-03-02] MEDS: Insulin LISPRO 300 UNITS/3 ML VIAL SUBQ SCH ×4 (00:15→18:24)
[2021-03-02] MEDS: GuaiFENesin Liq 200 MG/10 ML UDC GTUBE SCH ×3 (04:02→17:09)
[2021-03-02] MEDS: clonazePAM 0.5 MG TABLET GTUBE SCH ×3 (04:02→17:09)
[2021-03-02] MEDS: Piperacillin/Tazobactam 3.375 GM in 0.9 % Sodium Chloride Mini Bag 100 ML IVPB SCH ×3 (04:04→20:22)
[2021-03-02] MEDS: *HR* OxyCODONE Oral Soln 5 MG/5 ML UD.LIQ GTUBE PRN ×2 (05:33→17:09)
[2021-03-02] MEDS: Ondansetron 4 MG/2 ML VIAL IVP PRN (05:34)
[2021-03-02 06:41] LABS: BUN/Creatinine Ratio 19 (6-26); Blood Urea Nitrogen 13 mg/dL (6-20); Calcium 8.3 mg/dL (8.6-10.3); Carbon Dioxide 25 mEq/L (23-29); Chloride 106 mEq/L (98-107); Glucose 98 mg/dL (70-105); Magnesium 1.9 mg/dL (1.6-2.6); Osmolality,Calculated 286 (280-300); Potassium 3.5 mEq/L (3.5-5.1); Sodium 138 mEq/L (136-145); eGFR For African Americans > 60 (> 60); eGFR For Non-African Americans > 60 (> 60)
[2021-03-02] MEDS ORDERED: Magnesium Sulfate 1 GM/102 ML PIGGYBACK IVPB ONE (07:37)
[2021-03-02] MEDS: *HR* Digoxin 0.125 MG TABLET GTUBE SCH (08:09)
[2021-03-02] MEDS: QUEtiapine Fumarate 25 MG TABLET GTUBE SCH (08:09)
[2021-03-02] MEDS: Aspirin 81 MG TAB.CHEW GTUBE SCH (08:09)
[2021-03-02] MEDS: Potassium Chloride Elixir 20 MEQ/15 ML UDC GTUBE SCH (08:11)
[2021-03-02 08:40] LABS: Hematocrit 26.5 % (37.5-50.1); Hemoglobin 7.9 g/dL (12.9-16.9); Mean Corpuscular HGB Conc 29.8 g/dL (31.6-35.5); Mean Corpuscular Hemoglobin 26.7 pg (28.0-33.3); Mean Corpuscular Volume 89.5 fL (83.0-100.0); Mean Platelet Volume 9.5 fL (9.4-12.4); Platelet Count 399 K/mcL (140-400); Red Blood Count 2.96 M/mcL (4.19-5.50); White Blood Count 9.4 K/mcL (4.3-11.1)
[2021-03-02] MEDS: QUEtiapine Fumarate 100 MG TABLET GTUBE SCH (20:49)
[2021-03-02] MEDS: Melatonin 3 MG TABLET GTUBE SCH (20:49)
[2021-03-03] MEDS: DAPTOmycin 750 MG in 0.9 % Sodium Chloride 100 ML IVPB SCH (00:55)
[2021-03-03] MEDS: Insulin LISPRO 300 UNITS/3 ML VIAL SUBQ SCH ×4 (00:56→16:13)
[2021-03-03] MEDS: GuaiFENesin Liq 200 MG/10 ML UDC GTUBE SCH ×3 (01:42→16:18)
[2021-03-03] MEDS: clonazePAM 0.5 MG TABLET GTUBE SCH ×3 (01:42→16:18)
[2021-03-03] MEDS: Piperacillin/Tazobactam 3.375 GM in 0.9 % Sodium Chloride Mini Bag 100 ML IVPB SCH ×3 (05:56→20:54)
[2021-03-03] MEDS: *HR* OxyCODONE Oral Soln 5 MG/5 ML UD.LIQ GTUBE PRN ×2 (05:57→16:18)
[2021-03-03] MEDS: QUEtiapine Fumarate 25 MG TABLET GTUBE SCH (09:30)
[2021-03-03] MEDS: *HR* Digoxin 0.125 MG TABLET GTUBE SCH (09:31)
[2021-03-03] MEDS: Aspirin 81 MG TAB.CHEW GTUBE SCH (09:32)
[2021-03-03] MEDS: Potassium Chloride Elixir 20 MEQ/15 ML UDC GTUBE SCH (09:32)
[2021-03-03] MEDS: Ondansetron 4 MG/2 ML VIAL IVP PRN (20:55)
[2021-03-03] MEDS: QUEtiapine Fumarate 100 MG TABLET GTUBE SCH (20:55)
[2021-03-03] MEDS: Melatonin 3 MG TABLET GTUBE SCH (20:55)
[2021-03-04] MEDS: DAPTOmycin 750 MG in 0.9 % Sodium Chloride 100 ML IVPB SCH ×2 (00:57→20:54)
[2021-03-04] MEDS: Insulin LISPRO 300 UNITS/3 ML VIAL SUBQ SCH ×4 (00:58→18:08)
[2021-03-04] MEDS: GuaiFENesin Liq 200 MG/10 ML UDC GTUBE SCH ×3 (01:00→18:00)
[2021-03-04] MEDS: clonazePAM 0.5 MG TABLET GTUBE SCH ×3 (01:00→18:00)
[2021-03-04] MEDS: Piperacillin/Tazobactam 3.375 GM in 0.9 % Sodium Chloride Mini Bag 100 ML IVPB SCH (04:04)
[2021-03-04 04:21] LABS: Red Cell Distribution Width 17.8 % (11.5-14.5)
[2021-03-04 04:22] LABS: Hematocrit 27.8 % (37.5-50.1); Hemoglobin 8.2 g/dL (12.9-16.9); Mean Corpuscular HGB Conc 29.5 g/dL (31.6-35.5); Mean Corpuscular Hemoglobin 26.5 pg (28.0-33.3); Mean Platelet Volume 9.3 fL (9.4-12.4); Platelet Count 406 K/mcL (140-400); Red Blood Count 3.09 M/mcL (4.19-5.50); White Blood Count 9.3 K/mcL (4.3-11.1)
[2021-03-04 04:40] LABS: BUN/Creatinine Ratio 19 (6-26); Blood Urea Nitrogen 12 mg/dL (6-20); Calcium 8.4 mg/dL (8.6-10.3); Carbon Dioxide 28 mEq/L (23-29); Chloride 106 mEq/L (98-107); Glucose 93 mg/dL (70-105); Magnesium 1.9 mg/dL (1.6-2.6); Osmolality,Calculated 285 (280-300); Potassium 3.4 mEq/L (3.5-5.1); Sodium 138 mEq/L (136-145); eGFR For African Americans > 60 (> 60); eGFR For Non-African Americans > 60 (> 60)
[2021-03-04] MEDS ORDERED: Prochlorperazine 10 MG/2 ML VIAL IVP ONE (05:39)
[2021-03-04] MEDS: *HR* OxyCODONE Oral Soln 5 MG/5 ML UD.LIQ GTUBE PRN ×2 (05:50→18:00)
[2021-03-04] MEDS: QUEtiapine Fumarate 25 MG TABLET GTUBE SCH (10:02)
[2021-03-04] MEDS: Aspirin 81 MG TAB.CHEW GTUBE SCH (10:02)
[2021-03-04] MEDS: *HR* Digoxin 0.125 MG TABLET GTUBE SCH (10:02)
[2021-03-04] MEDS: Potassium Chloride Elixir 20 MEQ/15 ML UDC GTUBE SCH (10:03)
[2021-03-04] MEDS: Ondansetron 4 MG/2 ML VIAL IVP PRN (10:08)
[2021-03-04] MEDS: Metoclopramide 10 MG/10 ML UD.LIQ GTUBE SCH ×2 (13:02→18:00)
[2021-03-04] MEDS: QUEtiapine Fumarate 100 MG TABLET GTUBE SCH (20:54)
[2021-03-04] MEDS: Melatonin 3 MG TABLET GTUBE SCH (20:54)
[2021-03-05] MEDS: GuaiFENesin Liq 200 MG/10 ML UDC GTUBE SCH ×3 (00:52→18:35)
[2021-03-05] MEDS: Metoclopramide 10 MG/10 ML UD.LIQ GTUBE SCH ×4 (00:52→18:35)
[2021-03-05] MEDS: clonazePAM 0.5 MG TABLET GTUBE SCH ×3 (00:52→18:36)
[2021-03-05] MEDS: Insulin LISPRO 300 UNITS/3 ML VIAL SUBQ SCH ×4 (00:53→18:40)
[2021-03-05] MEDS: *HR* OxyCODONE Oral Soln 5 MG/5 ML UD.LIQ GTUBE PRN ×2 (05:58→18:36)
[2021-03-05 07:15] LABS: BUN/Creatinine Ratio 15 (6-26); Blood Urea Nitrogen 9 mg/dL (6-20); Calcium 8.5 mg/dL (8.6-10.3); Carbon Dioxide 26 mEq/L (23-29); Chloride 105 mEq/L (98-107); Glucose 113 mg/dL (70-105); Osmolality,Calculated 283 (280-300); Potassium 3.7 mEq/L (3.5-5.1); Sodium 137 mEq/L (136-145); eGFR For African Americans > 60 (> 60); eGFR For Non-African Americans > 60 (> 60)
[2021-03-05] MEDS: *HR* Digoxin 0.125 MG TABLET GTUBE SCH (10:51)
[2021-03-05] MEDS: Aspirin 81 MG TAB.CHEW GTUBE SCH (10:52)
[2021-03-05] MEDS: Potassium Chloride Elixir 20 MEQ/15 ML UDC GTUBE SCH (10:52)
[2021-03-05] MEDS: QUEtiapine Fumarate 25 MG TABLET GTUBE SCH (10:52)
[2021-03-05] MEDS: QUEtiapine Fumarate 100 MG TABLET GTUBE SCH (20:50)
[2021-03-05] MEDS: Melatonin 3 MG TABLET GTUBE SCH (20:50)
[2021-03-05] MEDS: polyethylene glycoL 3350 17 GM POWD.PACK GTUBE PRN (20:51)
[2021-03-05] MEDS: DAPTOmycin 750 MG in 0.9 % Sodium Chloride 100 ML IVPB SCH (21:45)
[2021-03-06] MEDS: Metoclopramide 10 MG/10 ML UD.LIQ GTUBE SCH ×4 (00:10→17:40)
[2021-03-06] MEDS: Insulin LISPRO 300 UNITS/3 ML VIAL SUBQ SCH ×4 (00:11→18:54)
[2021-03-06] MEDS: GuaiFENesin Liq 200 MG/10 ML UDC GTUBE SCH ×3 (02:07→17:40)
[2021-03-06] MEDS: clonazePAM 0.5 MG TABLET GTUBE SCH ×3 (02:08→17:40)
[2021-03-06] MEDS: Ondansetron 4 MG/2 ML VIAL IVP PRN (05:27)
[2021-03-06] MEDS: *HR* OxyCODONE Oral Soln 5 MG/5 ML UD.LIQ GTUBE PRN ×3 (05:27→14:31)
[2021-03-06 06:28] LABS: Hematocrit 32.3 % (37.5-50.1); Hemoglobin 9.6 g/dL (12.9-16.9); Mean Corpuscular HGB Conc 29.7 g/dL (31.6-35.5); Mean Corpuscular Hemoglobin 26.4 pg (28.0-33.3); Mean Corpuscular Volume 88.7 fL (83.0-100.0); Mean Platelet Volume 9.4 fL (9.4-12.4); Platelet Count 462 K/mcL (140-400); Red Blood Count 3.64 M/mcL (4.19-5.50); White Blood Count 10.9 K/mcL (4.3-11.1)
[2021-03-06 06:41] LABS: BUN/Creatinine Ratio 18 (6-26); Blood Urea Nitrogen 10 mg/dL (6-20); Calcium 8.5 mg/dL (8.6-10.3); Carbon Dioxide 27 mEq/L (23-29); Chloride 104 mEq/L (98-107); Glucose 131 mg/dL (70-105); Magnesium 1.8 mg/dL (1.6-2.6); Osmolality,Calculated 285 (280-300); Potassium 3.6 mEq/L (3.5-5.1); Sodium 137 mEq/L (136-145); eGFR For African Americans > 60 (> 60); eGFR For Non-African Americans > 60 (> 60)
[2021-03-06 09:13] LABS: Creatine Kinase 33 Units/L (30-223)
[2021-03-06] MEDS: QUEtiapine Fumarate 25 MG TABLET GTUBE SCH (09:26)
[2021-03-06] MEDS: Aspirin 81 MG TAB.CHEW GTUBE SCH (09:26)
[2021-03-06] MEDS: Potassium Chloride Elixir 20 MEQ/15 ML UDC GTUBE SCH (09:26)
[2021-03-06] MEDS: *HR* Digoxin 0.125 MG TABLET GTUBE SCH (09:26)
[2021-03-06] MEDS ORDERED: Albuterol 2.5 MG/3 ML NEBULIZER IH PRN (13:36)
[2021-03-06] MEDS ORDERED: Ketorolac 30 MG/ML VIAL IVP PRN (14:36)
[2021-03-06] MEDS ORDERED: Pregabalin 75 MG CAPSULE PO PRN (14:36)
[2021-03-06] MEDS: QUEtiapine Fumarate 100 MG TABLET GTUBE SCH (20:13)
[2021-03-06] MEDS: Melatonin 3 MG TABLET GTUBE SCH (20:14)
[2021-03-06] MEDS: DAPTOmycin 750 MG in 0.9 % Sodium Chloride 100 ML IVPB SCH (23:23)
[2021-03-07] MEDS: Insulin LISPRO 300 UNITS/3 ML VIAL SUBQ SCH ×4 (02:01→17:52)
[2021-03-07] MEDS: Metoclopramide 10 MG/10 ML UD.LIQ GTUBE SCH ×4 (02:03→16:48)
[2021-03-07] MEDS: GuaiFENesin Liq 200 MG/10 ML UDC GTUBE SCH ×3 (02:03→16:48)
[2021-03-07] MEDS: clonazePAM 0.5 MG TABLET GTUBE SCH ×3 (02:03→16:48)
[2021-03-07] MEDS: *HR* Digoxin 0.125 MG TABLET GTUBE SCH (08:35)
[2021-03-07] MEDS: QUEtiapine Fumarate 25 MG TABLET GTUBE SCH (08:35)
[2021-03-07] MEDS: *HR* OxyCODONE Oral Soln 5 MG/5 ML UD.LIQ GTUBE PRN ×2 (08:35→20:55)
[2021-03-07] MEDS: Potassium Chloride Elixir 20 MEQ/15 ML UDC GTUBE SCH (08:35)
[2021-03-07] MEDS: Aspirin 81 MG TAB.CHEW GTUBE SCH (08:35)
[2021-03-07] MEDS: Ferrous Sulfate Oral Soln 300 MG/5 ML UDC GTUBE SCH (08:35)
[2021-03-07 09:46] LABS: Hemoglobin 9.3 g/dL (12.9-16.9); Mean Platelet Volume 9.5 fL (9.4-12.4)
[2021-03-07 09:47] LABS: Hematocrit 32.1 % (37.5-50.1); Mean Corpuscular Hemoglobin 25.8 pg (28.0-33.3); Mean Corpuscular Volume 88.9 fL (83.0-100.0); Platelet Count 487 K/mcL (140-400); Red Blood Count 3.61 M/mcL (4.19-5.50); Red Cell Distribution Width 17.8 % (11.5-14.5); White Blood Count 12.2 K/mcL (4.3-11.1)
[2021-03-07 10:01] LABS: BUN/Creatinine Ratio 23 (6-26); Blood Urea Nitrogen 14 mg/dL (6-20); Calcium 8.4 mg/dL (8.6-10.3); Carbon Dioxide 28 mEq/L (23-29); Chloride 105 mEq/L (98-107); Glucose 114 mg/dL (70-105); Osmolality,Calculated 289 (280-300); Potassium 3.8 mEq/L (3.5-5.1); Sodium 139 mEq/L (136-145); eGFR For African Americans > 60 (> 60); eGFR For Non-African Americans > 60 (> 60)
[2021-03-07] MEDS: Melatonin 3 MG TABLET GTUBE SCH (20:56)
[2021-03-07] MEDS: QUEtiapine Fumarate 100 MG TABLET GTUBE SCH (20:56)
[2021-03-07] MEDS: DAPTOmycin 750 MG in 0.9 % Sodium Chloride 100 ML IVPB SCH (23:16)
[2021-03-08] MEDS: Insulin LISPRO 300 UNITS/3 ML VIAL SUBQ SCH ×4 (00:42→18:14)
[2021-03-08] MEDS: Metoclopramide 10 MG/10 ML UD.LIQ GTUBE SCH ×4 (00:42→18:14)
[2021-03-08] MEDS: GuaiFENesin Liq 200 MG/10 ML UDC GTUBE SCH ×3 (00:42→18:13)
[2021-03-08] MEDS: clonazePAM 0.5 MG TABLET GTUBE SCH ×3 (00:43→18:13)
[2021-03-08 05:58] LABS: Hemoglobin 9.7 g/dL (12.9-16.9); Mean Platelet Volume 9.5 fL (9.4-12.4)
[2021-03-08 06:00] LABS: Hematocrit 33.3 % (37.5-50.1); Mean Corpuscular HGB Conc 29.1 g/dL (31.6-35.5); Mean Corpuscular Hemoglobin 26.4 pg (28.0-33.3); Mean Corpuscular Volume 90.5 fL (83.0-100.0); Platelet Count 484 K/mcL (140-400); Red Blood Count 3.68 M/mcL (4.19-5.50); White Blood Count 13.2 K/mcL (4.3-11.1)
[2021-03-08] MEDS: *HR* OxyCODONE Oral Soln 5 MG/5 ML UD.LIQ GTUBE PRN ×2 (06:07→20:51)
[2021-03-08 06:09] LABS: BUN/Creatinine Ratio 28 (6-26); Blood Urea Nitrogen 17 mg/dL (6-20); Calcium 8.7 mg/dL (8.6-10.3); Carbon Dioxide 25 mEq/L (23-29); Chloride 104 mEq/L (98-107); Glucose 151 mg/dL (70-105); Osmolality,Calculated 288 (280-300); Sodium 137 mEq/L (136-145); eGFR For African Americans > 60 (> 60); eGFR For Non-African Americans > 60 (> 60)
[2021-03-08] MEDS: Ferrous Sulfate Oral Soln 300 MG/5 ML UDC GTUBE SCH (08:14)
[2021-03-08] MEDS: Aspirin 81 MG TAB.CHEW GTUBE SCH (08:14)
[2021-03-08] MEDS: Potassium Chloride Elixir 20 MEQ/15 ML UDC GTUBE SCH (08:14)
[2021-03-08] MEDS: *HR* Digoxin 0.125 MG TABLET GTUBE SCH (08:15)
[2021-03-08] MEDS: QUEtiapine Fumarate 25 MG TABLET GTUBE SCH (08:15)
[2021-03-08] MEDS ORDERED: Isovue-370 500 ML BOTTLE IVP ONE ×2 (17:20→17:54)
[2021-03-08] MEDS: QUEtiapine Fumarate 100 MG TABLET GTUBE SCH (20:51)
[2021-03-08] MEDS: Melatonin 3 MG TABLET GTUBE SCH (20:52)
[2021-03-09] MEDS: GuaiFENesin Liq 200 MG/10 ML UDC GTUBE SCH ×3 (00:47→17:15)
[2021-03-09] MEDS: Metoclopramide 10 MG/10 ML UD.LIQ GTUBE SCH ×4 (00:47→17:14)
[2021-03-09] MEDS: clonazePAM 0.5 MG TABLET GTUBE SCH ×3 (00:48→17:14)
[2021-03-09] MEDS: DAPTOmycin 750 MG in 0.9 % Sodium Chloride 100 ML IVPB SCH ×2 (00:48→21:13)
[2021-03-09] MEDS: Insulin LISPRO 300 UNITS/3 ML VIAL SUBQ SCH ×4 (00:49→17:17)
[2021-03-09] MEDS: *HR* OxyCODONE Oral Soln 5 MG/5 ML UD.LIQ GTUBE PRN ×2 (05:42→12:26)
[2021-03-09 06:08] LABS: Hematocrit 31.6 % (37.5-50.1); Hemoglobin 9.2 g/dL (12.9-16.9); Mean Corpuscular HGB Conc 29.1 g/dL (31.6-35.5); Mean Corpuscular Hemoglobin 25.8 pg (28.0-33.3); Mean Corpuscular Volume 88.8 fL (83.0-100.0); Mean Platelet Volume 9.3 fL (9.4-12.4); Platelet Count 480 K/mcL (140-400); Red Blood Count 3.56 M/mcL (4.19-5.50); Red Cell Distribution Width 17.6 % (11.5-14.5); White Blood Count 10.6 K/mcL (4.3-11.1)
[2021-03-09 06:28] LABS: BUN/Creatinine Ratio 27 (6-26); Blood Urea Nitrogen 18 mg/dL (6-20); Calcium 8.5 mg/dL (8.6-10.3); Carbon Dioxide 26 mEq/L (23-29); Chloride 104 mEq/L (98-107); Glucose 158 mg/dL (70-105); Osmolality,Calculated 291 (280-300); Potassium 3.9 mEq/L (3.5-5.1); Sodium 138 mEq/L (136-145); eGFR For African Americans > 60 (> 60); eGFR For Non-African Americans > 60 (> 60)
[2021-03-09] MEDS: *HR* Digoxin 0.125 MG TABLET GTUBE SCH (09:59)
[2021-03-09] MEDS: Ferrous Sulfate Oral Soln 300 MG/5 ML UDC GTUBE SCH (09:59)
[2021-03-09] MEDS: Potassium Chloride Elixir 20 MEQ/15 ML UDC GTUBE SCH (09:59)
[2021-03-09] MEDS: QUEtiapine Fumarate 25 MG TABLET GTUBE SCH (09:59)
[2021-03-09] MEDS: Aspirin 81 MG TAB.CHEW GTUBE SCH (09:59)
[2021-03-09] MEDS ORDERED: *HR* Metoprolol 5 MG/5 ML VIAL IVP PRN (14:14)
[2021-03-09] MEDS: QUEtiapine Fumarate 100 MG TABLET GTUBE SCH (21:13)
[2021-03-09] MEDS: polyethylene glycoL 3350 17 GM POWD.PACK GTUBE PRN (21:29)
[2021-03-10] MEDS: clonazePAM 0.5 MG TABLET GTUBE SCH ×3 (01:47→17:36)
[2021-03-10] MEDS: GuaiFENesin Liq 200 MG/10 ML UDC GTUBE SCH ×3 (01:47→17:36)
[2021-03-10] MEDS: Metoclopramide 10 MG/10 ML UD.LIQ GTUBE SCH ×5 (01:47→23:29)
[2021-03-10 06:58] LABS: Hematocrit 29.2 % (37.5-50.1); Hemoglobin 8.7 g/dL (12.9-16.9); Mean Corpuscular HGB Conc 29.8 g/dL (31.6-35.5); Mean Corpuscular Hemoglobin 26.4 pg (28.0-33.3); Mean Corpuscular Volume 88.8 fL (83.0-100.0); Mean Platelet Volume 9.4 fL (9.4-12.4); Platelet Count 443 K/mcL (140-400); Red Blood Count 3.29 M/mcL (4.19-5.50); Red Cell Distribution Width 17.5 % (11.5-14.5); White Blood Count 11.6 K/mcL (4.3-11.1)
[2021-03-10 07:18] LABS: Alanine Aminotransferase 6 Units/L (7-52); Albumin 2.6 g/dL (3.5-5.7); Albumin/Globulin Ratio 0.6 (1.1-2.2); Alkaline Phosphatase 89 Units/L (34-104); Aspartate Amino Transferase 11 Units/L (13-39); BUN/Creatinine Ratio 29 (6-26); Bilirubin,Total 0.3 mg/dL (0.3-1.0); Blood Urea Nitrogen 18 mg/dL (6-20); Calcium 8.3 mg/dL (8.6-10.3); Carbon Dioxide 24 mEq/L (23-29); Chloride 101 mEq/L (98-107); Globulin 4.2 g/dL (2.4-3.5); Glucose 109 mg/dL (70-105); Magnesium 1.9 mg/dL (1.6-2.6); Osmolality,Calculated 278 (280-300); Phosphorous 4.1 mg/dL (2.7-4.5); Potassium 3.9 mEq/L (3.5-5.1); Sodium 133 mEq/L (136-145); Total Protein 6.8 g/dL (6.4-8.9); eGFR For African Americans > 60 (> 60); eGFR For Non-African Americans > 60 (> 60)
[2021-03-10] MEDS: Insulin LISPRO 300 UNITS/3 ML VIAL SUBQ SCH ×5 (07:53→23:30)
[2021-03-10] MEDS: Ferrous Sulfate Oral Soln 300 MG/5 ML UDC GTUBE SCH (09:36)
[2021-03-10] MEDS: Potassium Chloride Elixir 20 MEQ/15 ML UDC GTUBE SCH (09:36)
[2021-03-10] MEDS: *HR* Digoxin 0.125 MG TABLET GTUBE SCH (09:37)
[2021-03-10] MEDS: QUEtiapine Fumarate 25 MG TABLET GTUBE SCH (09:37)
[2021-03-10] MEDS: Aspirin 81 MG TAB.CHEW GTUBE SCH (09:37)
[2021-03-10] MEDS: *HR* OxyCODONE Oral Soln 5 MG/5 ML UD.LIQ GTUBE PRN (21:03)
[2021-03-10] MEDS: Melatonin 3 MG TABLET GTUBE SCH (21:04)
[2021-03-10] MEDS: DAPTOmycin 750 MG in 0.9 % Sodium Chloride 100 ML IVPB SCH (21:04)
[2021-03-10] MEDS: QUEtiapine Fumarate 100 MG TABLET GTUBE SCH (21:04)
[2021-03-11] MEDS: clonazePAM 0.5 MG TABLET GTUBE SCH ×3 (01:10→17:58)
[2021-03-11] MEDS: GuaiFENesin Liq 200 MG/10 ML UDC GTUBE SCH ×3 (01:10→17:57)
[2021-03-11] MEDS: Metoclopramide 10 MG/10 ML UD.LIQ GTUBE SCH ×3 (05:22→17:57)
[2021-03-11 06:13] LABS: Hematocrit 29.1 % (37.5-50.1); Hemoglobin 8.5 g/dL (12.9-16.9); Mean Corpuscular HGB Conc 29.2 g/dL (31.6-35.5); Mean Corpuscular Hemoglobin 25.5 pg (28.0-33.3); Mean Corpuscular Volume 87.4 fL (83.0-100.0); Mean Platelet Volume 9.1 fL (9.4-12.4); Platelet Count 415 K/mcL (140-400); Red Blood Count 3.33 M/mcL (4.19-5.50); Red Cell Distribution Width 17.4 % (11.5-14.5); White Blood Count 9.5 K/mcL (4.3-11.1)
[2021-03-11] MEDS: Insulin LISPRO 300 UNITS/3 ML VIAL SUBQ SCH ×3 (06:19→18:07)
[2021-03-11 06:27] LABS: Alanine Aminotransferase 8 Units/L (7-52); Albumin 2.5 g/dL (3.5-5.7); Albumin/Globulin Ratio 0.6 (1.1-2.2); Alkaline Phosphatase 88 Units/L (34-104); Aspartate Amino Transferase 10 Units/L (13-39); BUN/Creatinine Ratio 26 (6-26); Bilirubin,Total 0.2 mg/dL (0.3-1.0); Blood Urea Nitrogen 15 mg/dL (6-20); Calcium 8.4 mg/dL (8.6-10.3); Carbon Dioxide 25 mEq/L (23-29); Chloride 103 mEq/L (98-107); Globulin 4.3 g/dL (2.4-3.5); Glucose 130 mg/dL (70-105); Magnesium 1.9 mg/dL (1.6-2.6); Osmolality,Calculated 283 (280-300); Phosphorous 4.4 mg/dL (2.7-4.5); Potassium 3.8 mEq/L (3.5-5.1); Sodium 135 mEq/L (136-145); Total Protein 6.8 g/dL (6.4-8.9); eGFR For African Americans > 60 (> 60); eGFR For Non-African Americans > 60 (> 60)
[2021-03-11] MEDS: Aspirin 81 MG TAB.CHEW GTUBE SCH (09:05)
[2021-03-11] MEDS: Ferrous Sulfate Oral Soln 300 MG/5 ML UDC GTUBE SCH (09:05)
[2021-03-11] MEDS: Potassium Chloride Elixir 20 MEQ/15 ML UDC GTUBE SCH (09:05)
[2021-03-11] MEDS: QUEtiapine Fumarate 25 MG TABLET GTUBE SCH (09:05)
[2021-03-11] MEDS: *HR* Digoxin 0.125 MG TABLET GTUBE SCH (09:05)
[2021-03-11] MEDS: QUEtiapine Fumarate 100 MG TABLET GTUBE SCH (20:16)
[2021-03-11] MEDS: *HR* OxyCODONE Oral Soln 5 MG/5 ML UD.LIQ GTUBE PRN (20:16)
[2021-03-11] MEDS: Melatonin 3 MG TABLET GTUBE SCH (20:17)
[2021-03-11] MEDS: DAPTOmycin 750 MG in 0.9 % Sodium Chloride 100 ML IVPB SCH (22:23)
[2021-03-12] MEDS: GuaiFENesin Liq 200 MG/10 ML UDC GTUBE SCH ×3 (01:00→17:33)
[2021-03-12] MEDS: Metoclopramide 10 MG/10 ML UD.LIQ GTUBE SCH ×5 (01:00→23:15)
[2021-03-12] MEDS: clonazePAM 0.5 MG TABLET GTUBE SCH ×3 (01:01→17:33)
[2021-03-12] MEDS: Insulin LISPRO 300 UNITS/3 ML VIAL SUBQ SCH ×5 (01:01→23:15)
[2021-03-12 06:03] LABS: Hematocrit 39.5 % (37.5-50.1); Mean Corpuscular HGB Conc 32.7 g/dL (31.6-35.5); Mean Corpuscular Hemoglobin 28.9 pg (28.0-33.3); Mean Corpuscular Volume 88.4 fL (83.0-100.0); Mean Platelet Volume 10.1 fL (9.4-12.4); Platelet Count 292 K/mcL (140-400); Red Blood Count 4.47 M/mcL (4.19-5.50); Red Cell Distribution Width 12.7 % (11.5-14.5); White Blood Count 12.6 K/mcL (4.3-11.1)
[2021-03-12 06:04] LABS: Hemoglobin 12.9 g/dL (12.9-16.9)
[2021-03-12 06:30] LABS: Alanine Aminotransferase 52 Units/L (7-52); Albumin/Globulin Ratio 1.1 (1.1-2.2); Alkaline Phosphatase 92 Units/L (34-104); Aspartate Amino Transferase 22 Units/L (13-39); BUN/Creatinine Ratio 16 (6-26); Bilirubin,Total 0.8 mg/dL (0.3-1.0); Blood Urea Nitrogen 12 mg/dL (6-20); Calcium 8.6 mg/dL (8.6-10.3); Carbon Dioxide 22 mEq/L (23-29); Chloride 101 mEq/L (98-107); Globulin 2.8 g/dL (2.4-3.5); Glucose 77 mg/dL (70-105); Magnesium 1.9 mg/dL (1.6-2.6); Osmolality,Calculated 277 (280-300); Sodium 134 mEq/L (136-145); Total Protein 5.8 g/dL (6.4-8.9); eGFR For African Americans > 60 (> 60); eGFR For Non-African Americans > 60 (> 60)
[2021-03-12] MEDS: Potassium Chloride Elixir 20 MEQ/15 ML UDC GTUBE SCH (10:06)
[2021-03-12] MEDS: Aspirin 81 MG TAB.CHEW GTUBE SCH (10:07)
[2021-03-12] MEDS: *HR* Digoxin 0.125 MG TABLET GTUBE SCH (10:07)
[2021-03-12] MEDS: QUEtiapine Fumarate 25 MG TABLET GTUBE SCH (10:07)
[2021-03-12] MEDS: Ferrous Sulfate Oral Soln 300 MG/5 ML UDC GTUBE SCH (10:09)
[2021-03-12] MEDS: Melatonin 3 MG TABLET GTUBE SCH (20:04)
[2021-03-12] MEDS: QUEtiapine Fumarate 100 MG TABLET GTUBE SCH (20:04)
[2021-03-12] MEDS: DAPTOmycin 750 MG in 0.9 % Sodium Chloride 100 ML IVPB SCH (21:50)
[2021-03-13] MEDS: GuaiFENesin Liq 200 MG/10 ML UDC GTUBE SCH ×3 (00:59→16:03)
[2021-03-13] MEDS: clonazePAM 0.5 MG TABLET GTUBE SCH ×3 (00:59→16:03)
[2021-03-13] MEDS: Metoclopramide 10 MG/10 ML UD.LIQ GTUBE SCH ×4 (05:15→23:23)
[2021-03-13] MEDS: Insulin LISPRO 300 UNITS/3 ML VIAL SUBQ SCH ×3 (05:33→18:06)
[2021-03-13 06:17] LABS: Hematocrit 27.7 % (37.5-50.1); Hemoglobin 8.4 g/dL (12.9-16.9); Mean Corpuscular HGB Conc 30.3 g/dL (31.6-35.5); Mean Corpuscular Hemoglobin 26.7 pg (28.0-33.3); Mean Corpuscular Volume 87.9 fL (83.0-100.0); Mean Platelet Volume 9.2 fL (9.4-12.4); Platelet Count 443 K/mcL (140-400); Red Blood Count 3.15 M/mcL (4.19-5.50); Red Cell Distribution Width 17.2 % (11.5-14.5); White Blood Count 11.6 K/mcL (4.3-11.1)
[2021-03-13 06:45] LABS: Alanine Aminotransferase 8 Units/L (7-52); Albumin 2.5 g/dL (3.5-5.7); Albumin/Globulin Ratio 0.6 (1.1-2.2); Alkaline Phosphatase 101 Units/L (34-104); Aspartate Amino Transferase 10 Units/L (13-39); BUN/Creatinine Ratio 20 (6-26); Bilirubin,Total 0.2 mg/dL (0.3-1.0); Blood Urea Nitrogen 13 mg/dL (6-20); Calcium 8.4 mg/dL (8.6-10.3); Carbon Dioxide 29 mEq/L (23-29); Chloride 102 mEq/L (98-107); Globulin 4.2 g/dL (2.4-3.5); Glucose 124 mg/dL (70-105); Magnesium 1.9 mg/dL (1.6-2.6); Osmolality,Calculated 282 (280-300); Sodium 135 mEq/L (136-145); Total Protein 6.7 g/dL (6.4-8.9); eGFR For African Americans > 60 (> 60); eGFR For Non-African Americans > 60 (> 60)
[2021-03-13] MEDS ORDERED: Docusate Oral Soln 100 MG/10 ML UDC GTUBE PRN (09:09)
[2021-03-13] MEDS: Potassium Chloride Elixir 20 MEQ/15 ML UDC GTUBE SCH (09:49)
[2021-03-13] MEDS: Aspirin 81 MG TAB.CHEW GTUBE SCH (09:49)
[2021-03-13] MEDS: *HR* Digoxin 0.125 MG TABLET GTUBE SCH (09:49)
[2021-03-13] MEDS: QUEtiapine Fumarate 25 MG TABLET GTUBE SCH (09:49)
[2021-03-13] MEDS: Ferrous Sulfate Oral Soln 300 MG/5 ML UDC GTUBE SCH (09:49)
[2021-03-13] MEDS: *HR* OxyCODONE Oral Soln 5 MG/5 ML UD.LIQ GTUBE PRN (20:20)
[2021-03-13] MEDS: *HR* Heparin 5,000 UNIT/ML VIAL SQ SCH (20:20)
[2021-03-13] MEDS: Melatonin 3 MG TABLET GTUBE SCH (20:20)
[2021-03-13] MEDS: QUEtiapine Fumarate 100 MG TABLET GTUBE SCH (20:20)
[2021-03-14] MEDS: Insulin LISPRO 300 UNITS/3 ML VIAL SUBQ SCH ×4 (00:31→17:40)
[2021-03-14] MEDS: clonazePAM 0.5 MG TABLET GTUBE SCH ×3 (00:33→17:53)
[2021-03-14] MEDS: GuaiFENesin Liq 200 MG/10 ML UDC GTUBE SCH ×3 (00:33→17:53)
[2021-03-14] MEDS: *HR* Heparin 5,000 UNIT/ML VIAL SQ SCH ×3 (05:35→22:01)
[2021-03-14] MEDS: Metoclopramide 10 MG/10 ML UD.LIQ GTUBE SCH ×3 (05:35→17:53)
[2021-03-14 06:43] LABS: Basophils # 0.1 K/mcL (0.0-0.2); Basophils % 0.4 %; Eosinophils # 0.3 K/mcL (0.0-0.6); Eosinophils % 2.7 %; Hematocrit 27.5 % (37.5-50.1); Hemoglobin 8.1 g/dL (12.9-16.9); Immature Granulocytes % 0.7 % (0-4); Lymphocytes # 2.3 K/mcL (0.6-4.6); Lymphocytes % 20.1 %; Mean Corpuscular HGB Conc 29.5 g/dL (31.6-35.5); Mean Corpuscular Hemoglobin 26.1 pg (28.0-33.3); Mean Corpuscular Volume 88.7 fL (83.0-100.0); Mean Platelet Volume 9.3 fL (9.4-12.4); Monocytes # 1.1 K/mcL (0.0-1.3); Monocytes % 9.8 %; Neutrophils # 7.5 K/mcL (1.6-8.9); Platelet Count 453 K/mcL (140-400); Red Cell Distribution Width 17.4 % (11.5-14.5); Segmented Neutrophils % 66.3 %; White Blood Count 11.3 K/mcL (4.3-11.1)
[2021-03-14 07:03] LABS: % Iron Saturation 12 % (20-55); BUN/Creatinine Ratio 24 (6-26); Blood Urea Nitrogen 16 mg/dL (6-20); Calcium 8.2 mg/dL (8.6-10.3); Carbon Dioxide 28 mEq/L (23-29); Chloride 102 mEq/L (98-107); Glucose 131 mg/dL (70-105); Iron 20 mcg/dL (65-175); Magnesium 1.9 mg/dL (1.6-2.6); Osmolality,Calculated 285 (280-300); Potassium 4.4 mEq/L (3.5-5.1); Sodium 136 mEq/L (136-145); Transferrin 124 mg/dL (203-362); eGFR For African Americans > 60 (> 60); eGFR For Non-African Americans > 60 (> 60)
[2021-03-14 07:15] LABS: Ferritin 1205 ng/mL (20-250)
[2021-03-14 07:20] LABS: Folate 9.8 ng/mL (3.0-16.0)
[2021-03-14 09:52] LABS: Thyroid Stimulating Hormone 5.438 mcIU/mL (0.340-5.600)
[2021-03-14] MEDS: Potassium Chloride Elixir 20 MEQ/15 ML UDC GTUBE SCH (10:28)
[2021-03-14] MEDS: Aspirin 81 MG TAB.CHEW GTUBE SCH (10:28)
[2021-03-14] MEDS: Ferrous Sulfate Oral Soln 300 MG/5 ML UDC GTUBE SCH (10:28)
[2021-03-14] MEDS: *HR* Digoxin 0.125 MG TABLET GTUBE SCH (10:29)
[2021-03-14] MEDS: QUEtiapine Fumarate 25 MG TABLET GTUBE SCH (10:29)
[2021-03-14] MEDS: *HR* OxyCODONE Oral Soln 5 MG/5 ML UD.LIQ GTUBE PRN (11:14)
[2021-03-14] MEDS: Furosemide 40 MG/4 ML VIAL IVP SCH (12:46)
[2021-03-14] MEDS: QUEtiapine Fumarate 100 MG TABLET GTUBE SCH (22:01)
[2021-03-14] MEDS: Melatonin 3 MG TABLET GTUBE SCH (22:02)
[2021-03-15] MEDS: Metoclopramide 10 MG/10 ML UD.LIQ GTUBE SCH ×4 (02:00→19:11)
[2021-03-15] MEDS: clonazePAM 0.5 MG TABLET GTUBE SCH ×3 (02:09→19:11)
[2021-03-15] MEDS: GuaiFENesin Liq 200 MG/10 ML UDC GTUBE SCH ×3 (02:09→19:11)
[2021-03-15] MEDS: Insulin LISPRO 300 UNITS/3 ML VIAL SUBQ SCH ×4 (02:12→19:03)
[2021-03-15 05:41] LABS: Basophils # 0.1 K/mcL (0.0-0.2); Basophils % 0.4 %; Eosinophils # 0.3 K/mcL (0.0-0.6); Eosinophils % 2.5 %; Hemoglobin 8.6 g/dL (12.9-16.9); Immature Granulocytes % 0.7 % (0-4); Lymphocytes # 2.2 K/mcL (0.6-4.6); Lymphocytes % 18.8 %; Mean Corpuscular HGB Conc 29.7 g/dL (31.6-35.5); Mean Corpuscular Hemoglobin 25.6 pg (28.0-33.3); Mean Corpuscular Volume 86.3 fL (83.0-100.0); Mean Platelet Volume 9.2 fL (9.4-12.4); Monocytes # 1.1 K/mcL (0.0-1.3); Neutrophils # 7.7 K/mcL (1.6-8.9); Nucleated Red Blood Cells 0.2 /100 WBC (0); Platelet Count 458 K/mcL (140-400); Red Blood Count 3.36 M/mcL (4.19-5.50); Red Cell Distribution Width 17.4 % (11.5-14.5); Segmented Neutrophils % 67.6 %; White Blood Count 11.4 K/mcL (4.3-11.1)
[2021-03-15] MEDS: *HR* Heparin 5,000 UNIT/ML VIAL SQ SCH ×3 (05:53→22:05)
[2021-03-15 06:02] LABS: BUN/Creatinine Ratio 29 (6-26); Blood Urea Nitrogen 16 mg/dL (6-20); Calcium 8.3 mg/dL (8.6-10.3); Carbon Dioxide 27 mEq/L (23-29); Chloride 99 mEq/L (98-107); Glucose 146 mg/dL (70-105); Magnesium 1.9 mg/dL (1.6-2.6); Osmolality,Calculated 276 (280-300); Potassium 3.8 mEq/L (3.5-5.1); Sodium 131 mEq/L (136-145); eGFR For African Americans > 60 (> 60); eGFR For Non-African Americans > 60 (> 60)
[2021-03-15] MEDS: QUEtiapine Fumarate 25 MG TABLET GTUBE SCH (08:13)
[2021-03-15] MEDS: Ferrous Sulfate Oral Soln 300 MG/5 ML UDC GTUBE SCH (08:13)
[2021-03-15] MEDS: Aspirin 81 MG TAB.CHEW GTUBE SCH (08:13)
[2021-03-15] MEDS: *HR* OxyCODONE Oral Soln 5 MG/5 ML UD.LIQ GTUBE PRN ×2 (08:13→22:42)
[2021-03-15] MEDS: *HR* Digoxin 0.125 MG TABLET GTUBE SCH (08:13)
[2021-03-15] MEDS: Furosemide 40 MG/4 ML VIAL IVP SCH (08:14)
[2021-03-15] MEDS: Potassium Chloride Elixir 20 MEQ/15 ML UDC GTUBE SCH (08:14)
[2021-03-15 19:02] LABS: Adenovirus Not Detected (Not Detect); Bordetella Pertussis Not Detected (Not Detect); Chlamydophila pneumoniae Not Detected (Not Detect); Coronavirus 229E Not Detected (Not Detect); Coronavirus HKU1 Not Detected (Not Detect); Coronavirus NL63 Not Detected (Not Detect); Coronavirus OC43 Not Detected (Not Detect); Human Metapneumovirus Not Detected (Not Detect); Human Rhinovirus/Enterovirus Not Detected (Not Detect); Influenza A Subtype 2009 H1 Not Detected (Not Detect); Influenza B Not Detected (Not Detect); Mycoplasma pneumoniae Not Detected (Not Detect); Parainfluenza Virus 1 Not Detected (Not Detect); Parainfluenza Virus 2 Not Detected (Not Detect); Parainfluenza Virus 3 Not Detected (Not Detect); Parainfluenza Virus 4 Not Detected (Not Detect); Respiratory Syncytial Virus Not Detected (Not Detect); SARS-CoV-2 Not Detected (Not Detect)
[2021-03-15] MEDS: Piperacillin/Tazobactam 3.375 GM in 0.9 % Sodium Chloride Mini Bag 100 ML IVPB SCH (19:11)
[2021-03-15] MEDS: Lactobacillus 1 EACH CAP.SPRINK PO SCH (22:03)
[2021-03-15] MEDS: QUEtiapine Fumarate 100 MG TABLET GTUBE SCH (22:03)
[2021-03-15] MEDS: Melatonin 3 MG TABLET GTUBE SCH (22:04)
[2021-03-16] MEDS: Insulin LISPRO 300 UNITS/3 ML VIAL SUBQ SCH ×4 (01:06→17:54)
[2021-03-16] MEDS: Metoclopramide 10 MG/10 ML UD.LIQ GTUBE SCH ×4 (01:23→17:09)
[2021-03-16] MEDS: Piperacillin/Tazobactam 3.375 GM in 0.9 % Sodium Chloride Mini Bag 100 ML IVPB SCH ×3 (01:25→17:09)
[2021-03-16] MEDS: clonazePAM 0.5 MG TABLET GTUBE SCH ×3 (02:10→17:09)
[2021-03-16] MEDS: GuaiFENesin Liq 200 MG/10 ML UDC GTUBE SCH ×3 (02:10→17:09)
[2021-03-16] MEDS: *HR* Heparin 5,000 UNIT/ML VIAL SQ SCH ×3 (05:43→23:23)
[2021-03-16 07:50] LABS: Basophils # 0.1 K/mcL (0.0-0.2); Basophils % 0.5 %; Eosinophils # 0.4 K/mcL (0.0-0.6); Eosinophils % 3.7 %; Hematocrit 29.1 % (37.5-50.1); Hemoglobin 8.7 g/dL (12.9-16.9); Immature Granulocytes % 0.6 % (0-4); Lymphocytes # 1.7 K/mcL (0.6-4.6); Lymphocytes % 16.2 %; Mean Corpuscular HGB Conc 29.9 g/dL (31.6-35.5); Mean Corpuscular Hemoglobin 25.7 pg (28.0-33.3); Mean Corpuscular Volume 85.8 fL (83.0-100.0); Mean Platelet Volume 9.2 fL (9.4-12.4); Monocytes # 0.9 K/mcL (0.0-1.3); Monocytes % 8.8 %; Neutrophils # 7.5 K/mcL (1.6-8.9); Platelet Count 475 K/mcL (140-400); Red Blood Count 3.39 M/mcL (4.19-5.50); Red Cell Distribution Width 17.4 % (11.5-14.5); Segmented Neutrophils % 70.2 %; White Blood Count 10.7 K/mcL (4.3-11.1)
[2021-03-16] MEDS: Aspirin 81 MG TAB.CHEW GTUBE SCH (07:57)
[2021-03-16] MEDS: QUEtiapine Fumarate 25 MG TABLET GTUBE SCH (07:57)
[2021-03-16] MEDS: Furosemide 40 MG/4 ML VIAL IVP SCH (07:57)
[2021-03-16] MEDS: Potassium Chloride Elixir 20 MEQ/15 ML UDC GTUBE SCH (07:57)
[2021-03-16] MEDS: *HR* Digoxin 0.125 MG TABLET GTUBE SCH (07:57)
[2021-03-16] MEDS: Ferrous Sulfate Oral Soln 300 MG/5 ML UDC GTUBE SCH (07:57)
[2021-03-16] MEDS: Lactobacillus 1 EACH CAP.SPRINK PO SCH ×2 (07:57→21:03)
[2021-03-16 08:15] LABS: BUN/Creatinine Ratio 21 (6-26); Blood Urea Nitrogen 15 mg/dL (6-20); Calcium 8.7 mg/dL (8.6-10.3); Carbon Dioxide 28 mEq/L (23-29); Chloride 96 mEq/L (98-107); Glucose 142 mg/dL (70-105); Magnesium 1.9 mg/dL (1.6-2.6); Osmolality,Calculated 279 (280-300); Potassium 3.7 mEq/L (3.5-5.1); Sodium 133 mEq/L (136-145); eGFR For African Americans > 60 (> 60); eGFR For Non-African Americans > 60 (> 60)
[2021-03-16] MEDS: QUEtiapine Fumarate 100 MG TABLET GTUBE SCH (21:03)
[2021-03-16] MEDS: Melatonin 3 MG TABLET GTUBE SCH (21:03)
[2021-03-16] MEDS: *HR* OxyCODONE Oral Soln 5 MG/5 ML UD.LIQ GTUBE PRN (21:17)
[2021-03-17] MEDS: clonazePAM 0.5 MG TABLET GTUBE SCH ×3 (00:24→17:49)
[2021-03-17] MEDS: GuaiFENesin Liq 200 MG/10 ML UDC GTUBE SCH ×3 (00:24→17:49)
[2021-03-17] MEDS: Metoclopramide 10 MG/10 ML UD.LIQ GTUBE SCH ×4 (00:25→17:49)
[2021-03-17] MEDS: Insulin LISPRO 300 UNITS/3 ML VIAL SUBQ SCH ×4 (01:16→18:02)
[2021-03-17 01:18] LABS: BUN/Creatinine Ratio 22 (6-26); Blood Urea Nitrogen 15 mg/dL (6-20); Calcium 8.3 mg/dL (8.6-10.3); Carbon Dioxide 28 mEq/L (23-29); Chloride 97 mEq/L (98-107); Glucose 176 mg/dL (70-105); Magnesium 1.7 mg/dL (1.6-2.6); Osmolality,Calculated 279 (280-300); Potassium 3.7 mEq/L (3.5-5.1); Sodium 132 mEq/L (136-145); eGFR For African Americans > 60 (> 60); eGFR For Non-African Americans > 60 (> 60)
[2021-03-17] MEDS: Piperacillin/Tazobactam 3.375 GM in 0.9 % Sodium Chloride Mini Bag 100 ML IVPB SCH ×3 (01:18→17:49)
[2021-03-17 01:31] LABS: Basophils # 0.1 K/mcL (0.0-0.2); Basophils % 0.5 %; Eosinophils # 0.4 K/mcL (0.0-0.6); Hematocrit 26.5 % (37.5-50.1); Immature Granulocytes % 0.5 % (0-4); Lymphocytes # 2.1 K/mcL (0.6-4.6); Lymphocytes % 21.2 %; Mean Corpuscular HGB Conc 30.2 g/dL (31.6-35.5); Mean Corpuscular Hemoglobin 25.4 pg (28.0-33.3); Mean Corpuscular Volume 84.1 fL (83.0-100.0); Mean Platelet Volume 9.2 fL (9.4-12.4); Monocytes # 0.9 K/mcL (0.0-1.3); Monocytes % 8.6 %; Neutrophils # 6.6 K/mcL (1.6-8.9); Platelet Count 448 K/mcL (140-400); Red Blood Count 3.15 M/mcL (4.19-5.50); Segmented Neutrophils % 65.2 %; White Blood Count 10.1 K/mcL (4.3-11.1)
[2021-03-17] MEDS: *HR* Heparin 5,000 UNIT/ML VIAL SQ SCH ×3 (06:06→21:50)
[2021-03-17] MEDS: Ferrous Sulfate Oral Soln 300 MG/5 ML UDC GTUBE SCH (09:16)
[2021-03-17] MEDS: Potassium Chloride Elixir 20 MEQ/15 ML UDC GTUBE SCH (09:16)
[2021-03-17] MEDS: Lactobacillus 1 EACH CAP.SPRINK PO SCH ×2 (09:16→21:50)
[2021-03-17] MEDS: QUEtiapine Fumarate 25 MG TABLET GTUBE SCH (09:16)
[2021-03-17] MEDS: Aspirin 81 MG TAB.CHEW GTUBE SCH (09:16)
[2021-03-17] MEDS: *HR* Digoxin 0.125 MG TABLET GTUBE SCH (09:17)
[2021-03-17] MEDS: QUEtiapine Fumarate 100 MG TABLET GTUBE SCH (21:50)
[2021-03-17] MEDS: Melatonin 3 MG TABLET GTUBE SCH (21:50)
[2021-03-17] MEDS: *HR* OxyCODONE Oral Soln 5 MG/5 ML UD.LIQ GTUBE PRN (21:50)
[2021-03-18] MEDS: Metoclopramide 10 MG/10 ML UD.LIQ GTUBE SCH ×5 (00:49→22:51)
[2021-03-18] MEDS: Insulin LISPRO 300 UNITS/3 ML VIAL SUBQ SCH ×4 (00:49→18:02)
[2021-03-18] MEDS: GuaiFENesin Liq 200 MG/10 ML UDC GTUBE SCH ×3 (00:51→18:14)
[2021-03-18] MEDS: clonazePAM 0.5 MG TABLET GTUBE SCH ×3 (00:51→18:14)
[2021-03-18] MEDS: Piperacillin/Tazobactam 3.375 GM in 0.9 % Sodium Chloride Mini Bag 100 ML IVPB SCH (02:00)
[2021-03-18] MEDS: *HR* Heparin 5,000 UNIT/ML VIAL SQ SCH ×3 (06:00→21:54)
[2021-03-18 06:52] LABS: Basophils # 0.1 K/mcL (0.0-0.2); Basophils % 0.6 %; Eosinophils # 0.5 K/mcL (0.0-0.6); Eosinophils % 4.4 %; Hemoglobin 8.1 g/dL (12.9-16.9); Immature Granulocytes % 0.7 % (0-4); Lymphocytes # 2.1 K/mcL (0.6-4.6); Mean Corpuscular Hemoglobin 26.3 pg (28.0-33.3); Mean Corpuscular Volume 87.7 fL (83.0-100.0); Mean Platelet Volume 9.2 fL (9.4-12.4); Monocytes % 9.8 %; Neutrophils # 6.8 K/mcL (1.6-8.9); Platelet Count 447 K/mcL (140-400); Red Blood Count 3.08 M/mcL (4.19-5.50); Red Cell Distribution Width 17.2 % (11.5-14.5); Segmented Neutrophils % 64.5 %; White Blood Count 10.5 K/mcL (4.3-11.1)
[2021-03-18 07:15] LABS: BUN/Creatinine Ratio 19 (6-26); Blood Urea Nitrogen 13 mg/dL (6-20); Calcium 8.6 mg/dL (8.6-10.3); Carbon Dioxide 29 mEq/L (23-29); Chloride 98 mEq/L (98-107); Glucose 154 mg/dL (70-105); Magnesium 2.1 mg/dL (1.6-2.6); Osmolality,Calculated 281 (280-300); Potassium 3.6 mEq/L (3.5-5.1); Sodium 134 mEq/L (136-145); eGFR For African Americans > 60 (> 60); eGFR For Non-African Americans > 60 (> 60)
[2021-03-18] MEDS: Aspirin 81 MG TAB.CHEW GTUBE SCH (10:43)
[2021-03-18] MEDS: Ferrous Sulfate Oral Soln 300 MG/5 ML UDC GTUBE SCH (10:43)
[2021-03-18] MEDS: Potassium Chloride Elixir 20 MEQ/15 ML UDC GTUBE SCH (10:43)
[2021-03-18] MEDS: QUEtiapine Fumarate 25 MG TABLET GTUBE SCH (10:43)
[2021-03-18] MEDS: Amoxicillin/Clavulanate 400 MG/5 ML UDC GTUBE SCH ×2 (10:43→23:50)
[2021-03-18] MEDS: *HR* Digoxin 0.125 MG TABLET GTUBE SCH (10:43)
[2021-03-18] MEDS: Lactobacillus 1 EACH CAP.SPRINK PO SCH ×2 (10:43→21:54)
[2021-03-18] MEDS: Furosemide 40 MG/4 ML VIAL IVP SCH (10:44)
[2021-03-18] MEDS: QUEtiapine Fumarate 100 MG TABLET GTUBE SCH (21:54)
[2021-03-18] MEDS: Melatonin 3 MG TABLET GTUBE SCH (21:54)
[2021-03-19] MEDS: Insulin LISPRO 300 UNITS/3 ML VIAL SUBQ SCH ×6 (00:06→23:54)
[2021-03-19] MEDS: GuaiFENesin Liq 200 MG/10 ML UDC GTUBE SCH ×3 (00:38→17:12)
[2021-03-19] MEDS: clonazePAM 0.5 MG TABLET GTUBE SCH ×3 (00:38→17:12)
[2021-03-19] MEDS: *HR* Heparin 5,000 UNIT/ML VIAL SQ SCH ×3 (05:39→23:43)
[2021-03-19] MEDS: Metoclopramide 10 MG/10 ML UD.LIQ GTUBE SCH ×4 (05:40→23:43)
[2021-03-19 06:57] LABS: Basophils # 0.1 K/mcL (0.0-0.2); Basophils % 0.5 %; Eosinophils # 0.5 K/mcL (0.0-0.6); Eosinophils % 4.1 %; Hematocrit 27.8 % (37.5-50.1); Hemoglobin 8.3 g/dL (12.9-16.9); Immature Granulocytes % 0.7 % (0-4); Lymphocytes # 1.9 K/mcL (0.6-4.6); Mean Corpuscular HGB Conc 29.9 g/dL (31.6-35.5); Mean Corpuscular Hemoglobin 26.2 pg (28.0-33.3); Mean Corpuscular Volume 87.7 fL (83.0-100.0); Mean Platelet Volume 8.8 fL (9.4-12.4); Monocytes # 0.8 K/mcL (0.0-1.3); Monocytes % 7.3 %; Neutrophils # 7.8 K/mcL (1.6-8.9); Platelet Count 451 K/mcL (140-400); Red Blood Count 3.17 M/mcL (4.19-5.50); Red Cell Distribution Width 17.2 % (11.5-14.5); Segmented Neutrophils % 70.4 %; White Blood Count 11.1 K/mcL (4.3-11.1)
[2021-03-19 07:24] LABS: BUN/Creatinine Ratio 21 (6-26); Blood Urea Nitrogen 13 mg/dL (6-20); Calcium 8.8 mg/dL (8.6-10.3); Carbon Dioxide 31 mEq/L (23-29); Chloride 99 mEq/L (98-107); Digoxin 0.8 ng/mL (0.8-2.0); Glucose 154 mg/dL (70-105); Magnesium 1.9 mg/dL (1.6-2.6); Osmolality,Calculated 283 (280-300); Potassium 3.8 mEq/L (3.5-5.1); Sodium 135 mEq/L (136-145); eGFR For African Americans > 60 (> 60); eGFR For Non-African Americans > 60 (> 60)
[2021-03-19] MEDS: Potassium Chloride Elixir 20 MEQ/15 ML UDC GTUBE SCH (08:40)
[2021-03-19] MEDS: QUEtiapine Fumarate 25 MG TABLET GTUBE SCH (08:40)
[2021-03-19] MEDS: Ferrous Sulfate Oral Soln 300 MG/5 ML UDC GTUBE SCH (08:40)
[2021-03-19] MEDS: Aspirin 81 MG TAB.CHEW GTUBE SCH (08:40)
[2021-03-19] MEDS: *HR* Digoxin 0.125 MG TABLET GTUBE SCH (08:40)
[2021-03-19] MEDS: Furosemide 40 MG/4 ML VIAL IVP SCH (08:41)
[2021-03-19] MEDS: Lactobacillus 1 EACH CAP.SPRINK PO SCH (08:41)
[2021-03-19] MEDS: Amoxicillin/Clavulanate 400 MG/5 ML UDC GTUBE SCH ×2 (11:53→23:43)
[2021-03-19] MEDS: QUEtiapine Fumarate 100 MG TABLET GTUBE SCH (20:01)
[2021-03-19] MEDS: *HR* OxyCODONE Oral Soln 5 MG/5 ML UD.LIQ GTUBE PRN (20:01)
[2021-03-19] MEDS: Melatonin 3 MG TABLET GTUBE SCH (20:02)
[2021-03-19] MEDS: Lactobacillus 1 EACH CAP.SPRINK GTUBE SCH (20:02)
[2021-03-20] MEDS: GuaiFENesin Liq 200 MG/10 ML UDC GTUBE SCH ×3 (02:42→21:12)
[2021-03-20] MEDS: clonazePAM 0.5 MG TABLET GTUBE SCH ×3 (02:42→21:12)
[2021-03-20] MEDS: Insulin LISPRO 300 UNITS/3 ML VIAL SUBQ SCH ×3 (05:34→19:53)
[2021-03-20] MEDS: *HR* Heparin 5,000 UNIT/ML VIAL SQ SCH ×3 (05:36→21:40)
[2021-03-20] MEDS: Metoclopramide 10 MG/10 ML UD.LIQ GTUBE SCH ×3 (05:37→21:12)
[2021-03-20 06:51] LABS: Basophils # 0.1 K/mcL (0.0-0.2); Basophils % 0.4 %; Eosinophils # 0.5 K/mcL (0.0-0.6); Eosinophils % 4.3 %; Hemoglobin 8.7 g/dL (12.9-16.9); Immature Granulocytes % 0.9 % (0-4); Lymphocytes # 1.9 K/mcL (0.6-4.6); Lymphocytes % 16.2 %; Mean Corpuscular Hemoglobin 26.4 pg (28.0-33.3); Mean Corpuscular Volume 87.9 fL (83.0-100.0); Mean Platelet Volume 9.1 fL (9.4-12.4); Monocytes # 0.9 K/mcL (0.0-1.3); Monocytes % 7.7 %; Neutrophils # 8.3 K/mcL (1.6-8.9); Platelet Count 458 K/mcL (140-400); Red Cell Distribution Width 17.3 % (11.5-14.5); Segmented Neutrophils % 70.5 %; White Blood Count 11.8 K/mcL (4.3-11.1)
[2021-03-20] MEDS: Furosemide 40 MG/4 ML VIAL IVP SCH (10:12)
[2021-03-20] MEDS: Potassium Chloride Elixir 20 MEQ/15 ML UDC GTUBE SCH (10:12)
[2021-03-20] MEDS: Lactobacillus 1 EACH CAP.SPRINK GTUBE SCH ×2 (10:12→21:40)
[2021-03-20] MEDS: Aspirin 81 MG TAB.CHEW GTUBE SCH (10:12)
[2021-03-20] MEDS: Ferrous Sulfate Oral Soln 300 MG/5 ML UDC GTUBE SCH (10:12)
[2021-03-20] MEDS: *HR* Digoxin 0.125 MG TABLET GTUBE SCH (10:12)
[2021-03-20] MEDS: QUEtiapine Fumarate 25 MG TABLET GTUBE SCH (10:13)
[2021-03-20] MEDS: Amoxicillin/Clavulanate 400 MG/5 ML UDC GTUBE SCH ×2 (10:15→21:40)
[2021-03-20] MEDS: *HR* OxyCODONE Oral Soln 5 MG/5 ML UD.LIQ GTUBE PRN ×2 (10:18→21:39)
[2021-03-20 10:22] LABS: BUN/Creatinine Ratio 25 (6-26); Blood Urea Nitrogen 16 mg/dL (6-20); Carbon Dioxide 27 mEq/L (23-29); Chloride 99 mEq/L (98-107); Glucose 129 mg/dL (70-105); Magnesium 1.9 mg/dL (1.6-2.6); Osmolality,Calculated 283 (280-300); Sodium 135 mEq/L (136-145); eGFR For African Americans > 60 (> 60); eGFR For Non-African Americans > 60 (> 60)
[2021-03-20] MEDS: QUEtiapine Fumarate 100 MG TABLET GTUBE SCH (21:40)
[2021-03-20] MEDS: Melatonin 3 MG TABLET GTUBE SCH (21:40)
[2021-03-21] MEDS: Insulin LISPRO 300 UNITS/3 ML VIAL SUBQ SCH ×4 (00:07→18:38)
[2021-03-21] MEDS: clonazePAM 0.5 MG TABLET GTUBE SCH ×3 (00:17→16:42)
[2021-03-21] MEDS: Metoclopramide 10 MG/10 ML UD.LIQ GTUBE SCH ×4 (00:17→16:42)
[2021-03-21] MEDS: GuaiFENesin Liq 200 MG/10 ML UDC GTUBE SCH ×3 (00:17→16:41)
[2021-03-21] MEDS: *HR* OxyCODONE Oral Soln 5 MG/5 ML UD.LIQ GTUBE PRN ×3 (04:24→22:28)
[2021-03-21] MEDS: *HR* Heparin 5,000 UNIT/ML VIAL SQ SCH ×3 (05:53→22:28)
[2021-03-21] MEDS: Ferrous Sulfate Oral Soln 300 MG/5 ML UDC GTUBE SCH (07:33)
[2021-03-21] MEDS: Potassium Chloride Elixir 20 MEQ/15 ML UDC GTUBE SCH (07:33)
[2021-03-21] MEDS: QUEtiapine Fumarate 25 MG TABLET GTUBE SCH (07:34)
[2021-03-21] MEDS: Furosemide 40 MG/4 ML VIAL IVP SCH (07:34)
[2021-03-21] MEDS: *HR* Digoxin 0.125 MG TABLET GTUBE SCH (07:34)
[2021-03-21] MEDS: Lactobacillus 1 EACH CAP.SPRINK GTUBE SCH ×2 (07:34→22:28)
[2021-03-21] MEDS: Aspirin 81 MG TAB.CHEW GTUBE SCH (07:34)
[2021-03-21] MEDS: Amoxicillin/Clavulanate 400 MG/5 ML UDC GTUBE SCH ×2 (09:34→22:39)
[2021-03-21 13:37] LABS: Basophils # 0.1 K/mcL (0.0-0.2); Basophils % 0.5 %; Eosinophils # 0.5 K/mcL (0.0-0.6); Eosinophils % 4.8 %; Hemoglobin 8.2 g/dL (12.9-16.9); Immature Granulocytes % 1.1 % (0-4); Lymphocytes % 18.3 %; Mean Corpuscular HGB Conc 29.3 g/dL (31.6-35.5); Mean Corpuscular Hemoglobin 25.9 pg (28.0-33.3); Mean Corpuscular Volume 88.3 fL (83.0-100.0); Mean Platelet Volume 9.3 fL (9.4-12.4); Monocytes % 9.3 %; Neutrophils # 7.4 K/mcL (1.6-8.9); Platelet Count 414 K/mcL (140-400); Red Blood Count 3.17 M/mcL (4.19-5.50); Red Cell Distribution Width 17.8 % (11.5-14.5); White Blood Count 11.2 K/mcL (4.3-11.1)
[2021-03-21 13:56] LABS: BUN/Creatinine Ratio 23 (6-26); Blood Urea Nitrogen 15 mg/dL (6-20); Calcium 8.8 mg/dL (8.6-10.3); Carbon Dioxide 29 mEq/L (23-29); Chloride 99 mEq/L (98-107); Glucose 137 mg/dL (70-105); Magnesium 1.8 mg/dL (1.6-2.6); Osmolality,Calculated 279 (280-300); Potassium 4.3 mEq/L (3.5-5.1); Sodium 133 mEq/L (136-145); eGFR For African Americans > 60 (> 60); eGFR For Non-African Americans > 60 (> 60)
[2021-03-21] MEDS: Melatonin 3 MG TABLET GTUBE SCH (22:27)
[2021-03-21] MEDS: QUEtiapine Fumarate 100 MG TABLET GTUBE SCH (22:28)
[2021-03-22] MEDS: Insulin LISPRO 300 UNITS/3 ML VIAL SUBQ SCH ×4 (01:26→18:29)
[2021-03-22] MEDS: Metoclopramide 10 MG/10 ML UD.LIQ GTUBE SCH ×4 (01:46→17:06)
[2021-03-22] MEDS: GuaiFENesin Liq 200 MG/10 ML UDC GTUBE SCH ×3 (01:47→17:07)
[2021-03-22] MEDS: clonazePAM 0.5 MG TABLET GTUBE SCH ×3 (01:47→17:04)
[2021-03-22 04:18] LABS: Basophils # 0.1 K/mcL (0.0-0.2); Basophils % 0.5 %; Eosinophils # 0.6 K/mcL (0.0-0.6); Eosinophils % 5.1 %; Hematocrit 27.4 % (37.5-50.1); Hemoglobin 8.2 g/dL (12.9-16.9); Immature Granulocytes % 0.8 % (0-4); Lymphocytes # 2.8 K/mcL (0.6-4.6); Lymphocytes % 23.4 %; Mean Corpuscular HGB Conc 29.9 g/dL (31.6-35.5); Mean Corpuscular Hemoglobin 26.3 pg (28.0-33.3); Mean Corpuscular Volume 87.8 fL (83.0-100.0); Monocytes % 8.4 %; Neutrophils # 7.4 K/mcL (1.6-8.9); Platelet Count 454 K/mcL (140-400); Red Blood Count 3.12 M/mcL (4.19-5.50); Red Cell Distribution Width 17.7 % (11.5-14.5); Segmented Neutrophils % 61.8 %
[2021-03-22 04:26] LABS: BUN/Creatinine Ratio 27 (6-26); Blood Urea Nitrogen 17 mg/dL (6-20); Calcium 8.9 mg/dL (8.6-10.3); Carbon Dioxide 29 mEq/L (23-29); Chloride 99 mEq/L (98-107); Glucose 156 mg/dL (70-105); Magnesium 1.9 mg/dL (1.6-2.6); Osmolality,Calculated 277 (280-300); Phosphorous 4.3 mg/dL (2.7-4.5); Potassium 3.9 mEq/L (3.5-5.1); Sodium 131 mEq/L (136-145); eGFR For African Americans > 60 (> 60); eGFR For Non-African Americans > 60 (> 60)
[2021-03-22] MEDS: *HR* Heparin 5,000 UNIT/ML VIAL SQ SCH ×3 (06:09→21:05)
[2021-03-22] MEDS: QUEtiapine Fumarate 25 MG TABLET GTUBE SCH (09:14)
[2021-03-22] MEDS: Lactobacillus 1 EACH CAP.SPRINK GTUBE SCH ×2 (09:15→21:05)
[2021-03-22] MEDS: *HR* Digoxin 0.125 MG TABLET GTUBE SCH (09:16)
[2021-03-22] MEDS: Aspirin 81 MG TAB.CHEW GTUBE SCH (09:16)
[2021-03-22] MEDS: Potassium Chloride Elixir 20 MEQ/15 ML UDC GTUBE SCH (09:17)
[2021-03-22] MEDS: Piperacillin/Tazobactam 3.375 GM in 0.9 % Sodium Chloride Mini Bag 100 ML IVPB SCH ×2 (09:17→16:59)
[2021-03-22] MEDS: Ferrous Sulfate Oral Soln 300 MG/5 ML UDC GTUBE SCH (09:17)
[2021-03-22] MEDS: *HR* OxyCODONE Oral Soln 5 MG/5 ML UD.LIQ GTUBE PRN ×2 (13:00→21:05)
[2021-03-22] MEDS: QUEtiapine Fumarate 100 MG TABLET GTUBE SCH (21:05)
[2021-03-22] MEDS: Melatonin 3 MG TABLET GTUBE SCH (21:05)
[2021-03-23] MEDS: Piperacillin/Tazobactam 3.375 GM in 0.9 % Sodium Chloride Mini Bag 100 ML IVPB SCH ×3 (00:58→17:53)
[2021-03-23] MEDS: clonazePAM 0.5 MG TABLET GTUBE SCH ×3 (00:58→17:54)
[2021-03-23] MEDS: *HR* OxyCODONE Oral Soln 5 MG/5 ML UD.LIQ GTUBE PRN ×3 (00:59→19:28)
[2021-03-23] MEDS: GuaiFENesin Liq 200 MG/10 ML UDC GTUBE SCH ×3 (00:59→17:54)
[2021-03-23] MEDS: Insulin LISPRO 300 UNITS/3 ML VIAL SUBQ SCH ×4 (01:38→17:54)
[2021-03-23] MEDS: Metoclopramide 10 MG/10 ML UD.LIQ GTUBE SCH ×4 (01:50→17:54)
[2021-03-23] MEDS: *HR* Heparin 5,000 UNIT/ML VIAL SQ SCH ×3 (05:37→20:29)
[2021-03-23] MEDS: *HR* Digoxin 0.125 MG TABLET GTUBE SCH (09:35)
[2021-03-23] MEDS: Aspirin 81 MG TAB.CHEW GTUBE SCH (09:35)
[2021-03-23] MEDS: Lactobacillus 1 EACH CAP.SPRINK GTUBE SCH ×2 (09:35→20:29)
[2021-03-23] MEDS: QUEtiapine Fumarate 25 MG TABLET GTUBE SCH (09:36)
[2021-03-23] MEDS: Potassium Chloride Elixir 20 MEQ/15 ML UDC GTUBE SCH (09:36)
[2021-03-23] MEDS: Ferrous Sulfate Oral Soln 300 MG/5 ML UDC GTUBE SCH (09:37)
[2021-03-23] MEDS: Ondansetron 4 MG/2 ML VIAL IVP PRN (18:59)
[2021-03-23] MEDS: Melatonin 3 MG TABLET GTUBE SCH (20:29)
[2021-03-23] MEDS: QUEtiapine Fumarate 100 MG TABLET GTUBE SCH (20:29)
[2021-03-24] MEDS: GuaiFENesin Liq 200 MG/10 ML UDC GTUBE SCH ×3 (00:08→17:19)
[2021-03-24] MEDS: Piperacillin/Tazobactam 3.375 GM in 0.9 % Sodium Chloride Mini Bag 100 ML IVPB SCH ×3 (00:08→17:20)
[2021-03-24] MEDS: Metoclopramide 10 MG/10 ML UD.LIQ GTUBE SCH ×4 (00:08→17:19)
[2021-03-24] MEDS: clonazePAM 0.5 MG TABLET GTUBE SCH ×3 (00:08→17:20)
[2021-03-24] MEDS: Insulin LISPRO 300 UNITS/3 ML VIAL SUBQ SCH ×4 (00:19→17:22)
[2021-03-24] MEDS: *HR* Heparin 5,000 UNIT/ML VIAL SQ SCH ×3 (05:24→20:43)
[2021-03-24] MEDS: Ferrous Sulfate Oral Soln 300 MG/5 ML UDC GTUBE SCH (08:06)
[2021-03-24] MEDS: *HR* OxyCODONE Oral Soln 5 MG/5 ML UD.LIQ GTUBE PRN ×3 (08:06→17:27)
[2021-03-24] MEDS: Aspirin 81 MG TAB.CHEW GTUBE SCH (08:07)
[2021-03-24] MEDS: Lactobacillus 1 EACH CAP.SPRINK GTUBE SCH ×2 (08:07→20:43)
[2021-03-24] MEDS: QUEtiapine Fumarate 25 MG TABLET GTUBE SCH (08:07)
[2021-03-24] MEDS: Potassium Chloride Elixir 20 MEQ/15 ML UDC GTUBE SCH (08:07)
[2021-03-24] MEDS: *HR* Digoxin 0.125 MG TABLET GTUBE SCH (08:07)
[2021-03-24 13:08] LABS: Basophils # 0.1 K/mcL (0.0-0.2); Basophils % 0.6 %; Eosinophils # 0.7 K/mcL (0.0-0.6); Eosinophils % 5.9 %; Hematocrit 25.9 % (37.5-50.1); Hemoglobin 7.7 g/dL (12.9-16.9); Immature Granulocytes % 0.8 % (0-4); Lymphocytes # 2.4 K/mcL (0.6-4.6); Lymphocytes % 20.5 %; Mean Corpuscular HGB Conc 29.7 g/dL (31.6-35.5); Mean Corpuscular Hemoglobin 26.5 pg (28.0-33.3); Mean Platelet Volume 9.1 fL (9.4-12.4); Monocytes # 1.2 K/mcL (0.0-1.3); Monocytes % 10.4 %; Neutrophils # 7.3 K/mcL (1.6-8.9); Platelet Count 434 K/mcL (140-400); Red Blood Count 2.91 M/mcL (4.19-5.50); Segmented Neutrophils % 61.8 %; White Blood Count 11.8 K/mcL (4.3-11.1)
[2021-03-24 13:26] LABS: BUN/Creatinine Ratio 20 (6-26); Blood Urea Nitrogen 13 mg/dL (6-20); Calcium 8.6 mg/dL (8.6-10.3); Carbon Dioxide 28 mEq/L (23-29); Chloride 102 mEq/L (98-107); Glucose 121 mg/dL (70-105); Osmolality,Calculated 281 (280-300); Potassium 4.3 mEq/L (3.5-5.1); Sodium 135 mEq/L (136-145); eGFR For African Americans > 60 (> 60); eGFR For Non-African Americans > 60 (> 60)
[2021-03-24] MEDS: Melatonin 3 MG TABLET GTUBE SCH (20:43)
[2021-03-24] MEDS: QUEtiapine Fumarate 100 MG TABLET GTUBE SCH (20:43)
[2021-03-25] MEDS: Insulin LISPRO 300 UNITS/3 ML VIAL SUBQ SCH ×4 (00:32→19:44)
[2021-03-25] MEDS: *HR* OxyCODONE Oral Soln 5 MG/5 ML UD.LIQ GTUBE PRN ×4 (00:43→21:52)
[2021-03-25] MEDS: Metoclopramide 10 MG/10 ML UD.LIQ GTUBE SCH ×4 (00:43→18:10)
[2021-03-25] MEDS: Piperacillin/Tazobactam 3.375 GM in 0.9 % Sodium Chloride Mini Bag 100 ML IVPB SCH ×3 (00:43→18:09)
[2021-03-25] MEDS: clonazePAM 0.5 MG TABLET GTUBE SCH ×3 (00:43→18:11)
[2021-03-25] MEDS: GuaiFENesin Liq 200 MG/10 ML UDC GTUBE SCH ×3 (00:43→18:10)
[2021-03-25 01:57] LABS: Basophils # 0.1 K/mcL (0.0-0.2); Basophils % 0.5 %; Eosinophils # 0.9 K/mcL (0.0-0.6); Eosinophils % 7.8 %; Hematocrit 26.5 % (37.5-50.1); Hemoglobin 7.9 g/dL (12.9-16.9); Immature Granulocytes % 0.8 % (0-4); Lymphocytes # 2.3 K/mcL (0.6-4.6); Lymphocytes % 19.9 %; Mean Corpuscular HGB Conc 29.8 g/dL (31.6-35.5); Mean Corpuscular Hemoglobin 26.7 pg (28.0-33.3); Mean Corpuscular Volume 89.5 fL (83.0-100.0); Mean Platelet Volume 9.2 fL (9.4-12.4); Monocytes % 8.9 %; Platelet Count 433 K/mcL (140-400); Red Blood Count 2.96 M/mcL (4.19-5.50); Red Cell Distribution Width 17.9 % (11.5-14.5); Segmented Neutrophils % 62.1 %; White Blood Count 11.3 K/mcL (4.3-11.1)
[2021-03-25 02:11] LABS: BUN/Creatinine Ratio 22 (6-26); Blood Urea Nitrogen 14 mg/dL (6-20); Calcium 8.8 mg/dL (8.6-10.3); Carbon Dioxide 27 mEq/L (23-29); Chloride 100 mEq/L (98-107); Glucose 125 mg/dL (70-105); Osmolality,Calculated 280 (280-300); Potassium 3.9 mEq/L (3.5-5.1); Sodium 134 mEq/L (136-145); eGFR For African Americans > 60 (> 60); eGFR For Non-African Americans > 60 (> 60)
[2021-03-25] MEDS: *HR* Heparin 5,000 UNIT/ML VIAL SQ SCH ×4 (05:41→21:52)
[2021-03-25] MEDS: Potassium Chloride Elixir 20 MEQ/15 ML UDC GTUBE SCH (08:48)
[2021-03-25] MEDS: Ferrous Sulfate Oral Soln 300 MG/5 ML UDC GTUBE SCH (08:48)
[2021-03-25] MEDS: *HR* Digoxin 0.125 MG TABLET GTUBE SCH (08:48)
[2021-03-25] MEDS: Lactobacillus 1 EACH CAP.SPRINK GTUBE SCH ×2 (08:49→21:51)
[2021-03-25] MEDS: Aspirin 81 MG TAB.CHEW GTUBE SCH (08:49)
[2021-03-25] MEDS: QUEtiapine Fumarate 25 MG TABLET GTUBE SCH (08:49)
[2021-03-25] MEDS: QUEtiapine Fumarate 100 MG TABLET GTUBE SCH (21:51)
[2021-03-25] MEDS: Melatonin 3 MG TABLET GTUBE SCH (21:52)
[2021-03-26] MEDS: Piperacillin/Tazobactam 3.375 GM in 0.9 % Sodium Chloride Mini Bag 100 ML IVPB SCH ×3 (00:14→18:17)
[2021-03-26] MEDS: Insulin LISPRO 300 UNITS/3 ML VIAL SUBQ SCH ×4 (01:18→19:13)
[2021-03-26] MEDS: Metoclopramide 10 MG/10 ML UD.LIQ GTUBE SCH ×5 (01:21→20:59)
[2021-03-26] MEDS: clonazePAM 0.5 MG TABLET GTUBE SCH ×4 (01:22→21:00)
[2021-03-26] MEDS: GuaiFENesin Liq 200 MG/10 ML UDC GTUBE SCH ×4 (01:22→20:59)
[2021-03-26] MEDS: *HR* Heparin 5,000 UNIT/ML VIAL SQ SCH ×3 (04:49→21:01)
[2021-03-26 06:30] LABS: Basophils # 0.1 K/mcL (0.0-0.2); Basophils % 0.4 %; Eosinophils # 0.8 K/mcL (0.0-0.6); Eosinophils % 6.7 %; Hematocrit 26.7 % (37.5-50.1); Hemoglobin 7.8 g/dL (12.9-16.9); Immature Granulocytes % 0.7 % (0-4); Lymphocytes # 2.3 K/mcL (0.6-4.6); Lymphocytes % 18.4 %; Mean Corpuscular HGB Conc 29.2 g/dL (31.6-35.5); Mean Corpuscular Hemoglobin 25.7 pg (28.0-33.3); Mean Corpuscular Volume 87.8 fL (83.0-100.0); Mean Platelet Volume 9.2 fL (9.4-12.4); Monocytes # 1.1 K/mcL (0.0-1.3); Monocytes % 9.1 %; Neutrophils # 7.9 K/mcL (1.6-8.9); Platelet Count 458 K/mcL (140-400); Red Blood Count 3.04 M/mcL (4.19-5.50); Segmented Neutrophils % 64.7 %; White Blood Count 12.2 K/mcL (4.3-11.1)
[2021-03-26] MEDS: *HR* OxyCODONE Oral Soln 5 MG/5 ML UD.LIQ GTUBE PRN ×3 (06:32→21:00)
[2021-03-26 06:50] LABS: BUN/Creatinine Ratio 20 (6-26); Blood Urea Nitrogen 12 mg/dL (6-20); Carbon Dioxide 28 mEq/L (23-29); Chloride 101 mEq/L (98-107); Glucose 107 mg/dL (70-105); Osmolality,Calculated 280 (280-300); Potassium 3.8 mEq/L (3.5-5.1); Sodium 135 mEq/L (136-145); eGFR For African Americans > 60 (> 60); eGFR For Non-African Americans > 60 (> 60)
[2021-03-26] MEDS: Ferrous Sulfate Oral Soln 300 MG/5 ML UDC GTUBE SCH (08:20)
[2021-03-26] MEDS: Potassium Chloride Elixir 20 MEQ/15 ML UDC GTUBE SCH (08:20)
[2021-03-26] MEDS: Aspirin 81 MG TAB.CHEW GTUBE SCH (08:20)
[2021-03-26] MEDS: Lactobacillus 1 EACH CAP.SPRINK GTUBE SCH ×2 (08:20→21:00)
[2021-03-26] MEDS: *HR* Digoxin 0.125 MG TABLET GTUBE SCH (08:20)
[2021-03-26] MEDS: QUEtiapine Fumarate 25 MG TABLET GTUBE SCH (08:20)
[2021-03-26] MEDS: Melatonin 3 MG TABLET GTUBE SCH (21:00)
[2021-03-26] MEDS: QUEtiapine Fumarate 100 MG TABLET GTUBE SCH (21:00)
[2021-03-27] MEDS: Insulin LISPRO 300 UNITS/3 ML VIAL SUBQ SCH ×4 (00:53→18:19)
[2021-03-27] MEDS: Piperacillin/Tazobactam 3.375 GM in 0.9 % Sodium Chloride Mini Bag 100 ML IVPB SCH ×3 (01:21→16:23)
[2021-03-27] MEDS: *HR* Heparin 5,000 UNIT/ML VIAL SQ SCH ×3 (05:15→21:29)
[2021-03-27] MEDS: Metoclopramide 10 MG/10 ML UD.LIQ GTUBE SCH ×3 (05:18→16:24)
[2021-03-27 05:31] LABS: Hematocrit 27.8 % (37.5-50.1); Hemoglobin 7.9 g/dL (12.9-16.9); Mean Corpuscular HGB Conc 28.4 g/dL (31.6-35.5); Mean Corpuscular Hemoglobin 25.6 pg (28.0-33.3); Mean Platelet Volume 9.3 fL (9.4-12.4); Platelet Count 458 K/mcL (140-400); Red Blood Count 3.09 M/mcL (4.19-5.50); Red Cell Distribution Width 18.2 % (11.5-14.5); White Blood Count 11.5 K/mcL (4.3-11.1)
[2021-03-27 05:39] LABS: BUN/Creatinine Ratio 19 (6-26); Blood Urea Nitrogen 11 mg/dL (6-20); Calcium 8.9 mg/dL (8.6-10.3); Carbon Dioxide 27 mEq/L (23-29); Chloride 102 mEq/L (98-107); Glucose 101 mg/dL (70-105); Osmolality,Calculated 284 (280-300); Potassium 4.1 mEq/L (3.5-5.1); Sodium 137 mEq/L (136-145); eGFR For African Americans > 60 (> 60); eGFR For Non-African Americans > 60 (> 60)
[2021-03-27] MEDS: Ferrous Sulfate Oral Soln 300 MG/5 ML UDC GTUBE SCH (08:31)
[2021-03-27] MEDS: Lactobacillus 1 EACH CAP.SPRINK GTUBE SCH ×2 (08:32→21:29)
[2021-03-27] MEDS: *HR* Digoxin 0.125 MG TABLET GTUBE SCH (08:32)
[2021-03-27] MEDS: QUEtiapine Fumarate 25 MG TABLET GTUBE SCH (08:32)
[2021-03-27] MEDS: Potassium Chloride Elixir 20 MEQ/15 ML UDC GTUBE SCH (08:32)
[2021-03-27] MEDS: clonazePAM 0.5 MG TABLET GTUBE SCH ×2 (08:32→16:23)
[2021-03-27] MEDS: Aspirin 81 MG TAB.CHEW GTUBE SCH (08:32)
[2021-03-27] MEDS: GuaiFENesin Liq 200 MG/10 ML UDC GTUBE SCH ×2 (08:32→16:23)
[2021-03-27] MEDS: Ondansetron 4 MG/2 ML VIAL IVP PRN (10:57)
[2021-03-27] MEDS: *HR* OxyCODONE Oral Soln 5 MG/5 ML UD.LIQ GTUBE PRN (16:29)
[2021-03-27] MEDS: QUEtiapine Fumarate 100 MG TABLET GTUBE SCH (21:29)
[2021-03-27] MEDS: Melatonin 3 MG TABLET GTUBE SCH (21:29)
[2021-03-28] MEDS: Metoclopramide 10 MG/10 ML UD.LIQ GTUBE SCH ×4 (00:08→17:14)
[2021-03-28] MEDS: GuaiFENesin Liq 200 MG/10 ML UDC GTUBE SCH ×3 (00:09→17:14)
[2021-03-28] MEDS: Piperacillin/Tazobactam 3.375 GM in 0.9 % Sodium Chloride Mini Bag 100 ML IVPB SCH ×3 (00:09→17:13)
[2021-03-28] MEDS: clonazePAM 0.5 MG TABLET GTUBE SCH ×3 (00:09→17:14)
[2021-03-28] MEDS: Insulin LISPRO 300 UNITS/3 ML VIAL SUBQ SCH ×3 (00:10→13:08)
[2021-03-28 05:53] LABS: Hematocrit 28.9 % (37.5-50.1); Hemoglobin 8.6 g/dL (12.9-16.9); Mean Corpuscular HGB Conc 29.8 g/dL (31.6-35.5); Mean Corpuscular Hemoglobin 26.6 pg (28.0-33.3); Mean Corpuscular Volume 89.5 fL (83.0-100.0); Mean Platelet Volume 9.4 fL (9.4-12.4); Platelet Count 496 K/mcL (140-400); Red Blood Count 3.23 M/mcL (4.19-5.50); Red Cell Distribution Width 18.1 % (11.5-14.5); White Blood Count 12.8 K/mcL (4.3-11.1)
[2021-03-28] MEDS: *HR* Heparin 5,000 UNIT/ML VIAL SQ SCH ×2 (06:01→13:37)
[2021-03-28] MEDS: Potassium Chloride Elixir 20 MEQ/15 ML UDC GTUBE SCH (08:49)
[2021-03-28] MEDS: *HR* Digoxin 0.125 MG TABLET GTUBE SCH (08:49)
[2021-03-28] MEDS: Ferrous Sulfate Oral Soln 300 MG/5 ML UDC GTUBE SCH (08:49)
[2021-03-28] MEDS: *HR* OxyCODONE Oral Soln 5 MG/5 ML UD.LIQ GTUBE PRN ×2 (08:49→17:15)
[2021-03-28] MEDS: QUEtiapine Fumarate 25 MG TABLET GTUBE SCH (08:50)
[2021-03-28] MEDS: Aspirin 81 MG TAB.CHEW GTUBE SCH (08:50)
[2021-03-28] MEDS: Lactobacillus 1 EACH CAP.SPRINK GTUBE SCH (08:50)
[2021-03-28 08:54] VITALS: BP 138/72; PULSE 105; TEMP 98.2; O2SAT 93
== END 2021-03-28 18:12 | disposition short-term general hospital (02) | DRG 871 ==
LOC: 3ANU → SUATTDRO 02-22 05:53
PROVIDERS: ADMIT Internal Medicine; ATTEND Internal Medicine

== ENCOUNTER 2021-07-04 06:44 | Inpatient (IN) ==
[2021-07-04] MEDS ORDERED: Naloxone 0.4 MG/ML INJ IVP PRN (11:19)
[2021-07-04] MEDS ORDERED: Dextrose 4 GM Chewable Tablets PO PRN ×2 (11:27)
[2021-07-04] MEDS ORDERED: Ondansetron 4 MG/2 ML VIAL IVP PRN (11:27)
[2021-07-04] MEDS ORDERED: D5% in Water 1,000 ML IVC PRN (11:27)
[2021-07-04] MEDS ORDERED: Vancomycin 1,250 MG/262.5 ML IV.SOLN IVPB ONE (11:55)
[2021-07-04] MEDS ORDERED: Vancomycin (wt based) 1,000 MG VIAL IVPB SCH (12:00)
[2021-07-04] MEDS: Albumin Human 5% 12.5 GM/250 ML IV.SOLN IVC SCH ×2 (12:05→13:43)
[2021-07-04] MEDS: Norepinephrine 4 MG/254 ML IV.SOLN IVC SCH ×2 (12:19→18:05)
[2021-07-04] MEDS: Pantoprazole 40 MG VIAL IVP SCH ×2 (12:22→17:39)
[2021-07-04] MEDS: Insulin LISPRO 300 UNITS/3 ML VIAL SUBQ SCH (12:28)
[2021-07-04] MEDS: *HR* OxyCODONE Immed Rel 5 MG TABLET PO PRN ×2 (12:39→20:11)
[2021-07-04 13:11] LABS: Mean Platelet Volume 9.1 fL (9.4-12.4)
[2021-07-04 13:13] LABS: Hematocrit 32.6 % (37.5-50.1); Hemoglobin 10.1 g/dL (12.9-16.9); Mean Corpuscular Hemoglobin 27.8 pg (28.0-33.3); Mean Corpuscular Volume 89.8 fL (83.0-100.0); Platelet Count 316 K/mcL (140-400); Red Blood Count 3.63 M/mcL (4.19-5.50); Red Cell Distribution Width 15.1 % (11.5-14.5)
[2021-07-04 13:18] LABS: INR 1.5; Prothrombin Time 16.2 Seconds (9.4-12.1)
[2021-07-04 13:19] LABS: White Blood Count 30.9 K/mcL (4.3-11.1)
[2021-07-04 13:39] LABS: Lymphocytes # 0.9 K/mcL (0.6-4.6); Monocytes # 2.5 K/mcL (0.0-1.3); Neutrophils # 27.5 K/mcL (1.6-8.9); Platelet Estimate Normal (Normal)
[2021-07-04 13:44] LABS: Alanine Aminotransferase 102 Units/L (7-52); Albumin 2.9 g/dL (3.5-5.7); Albumin/Globulin Ratio 0.9 (1.1-2.2); Alkaline Phosphatase 425 Units/L (34-104); Aspartate Amino Transferase 135 Units/L (13-39); BUN/Creatinine Ratio 12 (6-26); Bilirubin,Direct 1.9 mg/dL (0.0-0.2); Bilirubin,Indirect 0.7 mg/dL (0.0-1.0); Bilirubin,Total 2.6 mg/dL (0.3-1.0); Blood Urea Nitrogen 12 mg/dL (6-20); Calcium 7.7 mg/dL (8.6-10.3); Carbon Dioxide 20 mEq/L (23-29); Chloride 110 mEq/L (98-107); Glucose 111 mg/dL (70-105); Magnesium 1.3 mg/dL (1.6-2.6); Osmolality,Calculated 290 (280-300); Phosphorous 3.2 mg/dL (2.7-4.5); Sodium 140 mEq/L (136-145); Total Protein 6.1 g/dL (6.4-8.9); eGFR For African Americans > 60 (> 60); eGFR For Non-African Americans > 60 (> 60)
[2021-07-04 13:45] LABS: Globulin 3.2 g/dL (2.4-3.5); Troponin I 1.13 ng/mL (< 0.04)
[2021-07-04] MEDS ORDERED: *HR* Heparin 5,000 UNIT/ML VIAL IVP PRN (13:46)
[2021-07-04] MEDS ORDERED: *HR* Heparin 5,000 UNIT/ML VIAL IVP ONE (13:46)
[2021-07-04] MEDS ORDERED: Perflutren Lipid Microsphere 1.3 ML in 0.9 % Sodium Chloride 8.7 ML IVP PRN (13:46)
[2021-07-04] MEDS ORDERED: Potassium Chloride Elixir 20 MEQ/15 ML UDC GTUBE ONE (13:52)
[2021-07-04] MEDS ORDERED: *HR* Heparin 5,000 UNIT/ML VIAL SQ SCH (16:00)
[2021-07-04 16:13] LABS: Mean Platelet Volume 8.9 fL (9.4-12.4); Platelet Count 271 K/mcL (140-400)
[2021-07-04 16:14] LABS: Hematocrit 29.5 % (37.5-50.1); Hemoglobin 9.3 g/dL (12.9-16.9); Mean Corpuscular HGB Conc 31.5 g/dL (31.6-35.5); Mean Corpuscular Volume 88.9 fL (83.0-100.0); Red Blood Count 3.32 M/mcL (4.19-5.50); Red Cell Distribution Width 15.3 % (11.5-14.5); White Blood Count 27.5 K/mcL (4.3-11.1)
[2021-07-04 16:24] LABS: Heparin anti-factor XA UFH < 0.04 IU/mL (0.30-0.70); INR 1.5; Prothrombin Time 17.2 Seconds (9.4-12.1)
[2021-07-04] MEDS: Heparin 25,000UNIT/250ML 1/2NS 25,000 UNIT/250 ML IV.SOLN IVC SCH (16:27)
[2021-07-04] MEDS: Piperacillin/Tazobactam 3.375 GM in 0.9 % Sodium Chloride Mini Bag 100 ML IVPB SCH ×2 (16:45→23:12)
[2021-07-04 17:11] LABS: Bilirubin,Urine Negative (Negative); Blood,Urine Negative (Negative); Clarity,Urine Turbid (Clear); Color,Urine Yellow (Yellow); Glucose,Urine (UA) Normal (Normal); Ketones,Urine Negative (Negative); Leukocyte Esterase,Urine Large (Negative); Nitrite,Urine Positive (Negative); PH,Urine 6.5 pH Units (5.0-8.0); Protein,Urine 30 mg/dL (Neg-Trace); Specific Gravity,Urine 1.029 (1.010-1.025); Squamous Epithelial Cell,Urine Few per hpf (None-Few); Urobilinogen,Urine Normal (Normal); WBC,Urine TNTC per hpf (0-3)
[2021-07-04] MEDS: Vancomycin 1,250 MG/262.5 ML IV.SOLN IVPB SCH (23:13)
[2021-07-04] MEDS: *HR* Dextrose 50 % in Water (Syg) 50 ML SYRINGE IVP PRN (23:38)
[2021-07-05] MEDS ORDERED: D5% in Water 1,000 ML IVC PRN (02:45)
[2021-07-05] MEDS ORDERED: Dextrose 4 GM Chewable Tablets PO PRN ×2 (02:45)
[2021-07-05] MEDS ORDERED: *HR* Dextrose 50 % in Water (Syg) 50 ML SYRINGE IVP PRN (02:45)
[2021-07-05] MEDS: D5% in Water 1,000 ML IVC SCH ×2 (02:56→16:49)
[2021-07-05] MEDS: *HR* Dextrose 50 % in Water (Syg) 50 ML SYRINGE IVP PRN (03:45)
[2021-07-05 04:04] LABS: Basophils % 0.1 %; Eosinophils # 0.1 K/mcL (0.0-0.6); Eosinophils % 0.4 %; Hemoglobin 9.3 g/dL (12.9-16.9); Immature Granulocytes % 1.1 % (0-4); Lymphocytes # 0.9 K/mcL (0.6-4.6); Lymphocytes % 5.7 %; Mean Corpuscular HGB Conc 32.1 g/dL (31.6-35.5); Mean Corpuscular Hemoglobin 28.6 pg (28.0-33.3); Mean Corpuscular Volume 89.2 fL (83.0-100.0); Mean Platelet Volume 9.2 fL (9.4-12.4); Monocytes # 0.4 K/mcL (0.0-1.3); Monocytes % 2.2 %; Neutrophils # 14.5 K/mcL (1.6-8.9); Platelet Count 227 K/mcL (140-400); Red Blood Count 3.25 M/mcL (4.19-5.50); Red Cell Distribution Width 15.6 % (11.5-14.5); Segmented Neutrophils % 90.5 %
[2021-07-05 04:08] LABS: VBG Ionized Calcium 1.06 mmol/L (1.15-1.35)
[2021-07-05 04:23] LABS: Alanine Aminotransferase 73 Units/L (7-52); Albumin 2.8 g/dL (3.5-5.7); Alkaline Phosphatase 312 Units/L (34-104); Aspartate Amino Transferase 74 Units/L (13-39); BUN/Creatinine Ratio 12 (6-26); Bilirubin,Indirect 0.7 mg/dL (0.0-1.0); Bilirubin,Total 2.7 mg/dL (0.3-1.0); Blood Urea Nitrogen 12 mg/dL (6-20); Calcium 7.5 mg/dL (8.6-10.3); Carbon Dioxide 20 mEq/L (23-29); Chloride 114 mEq/L (98-107); Globulin 2.9 g/dL (2.4-3.5); Glucose 77 mg/dL (70-105); Magnesium 1.3 mg/dL (1.6-2.6); Osmolality,Calculated 293 (280-300); Phosphorous 2.3 mg/dL (2.7-4.5); Potassium 3.6 mEq/L (3.5-5.1); Sodium 142 mEq/L (136-145); Total Protein 5.7 g/dL (6.4-8.9); eGFR For African Americans > 60 (> 60); eGFR For Non-African Americans > 60 (> 60)
[2021-07-05] MEDS: Pantoprazole 40 MG VIAL IVP SCH ×2 (04:31→18:46)
[2021-07-05] MEDS: Ibuprofen 800 MG TABLET PO PRN ×2 (04:31→21:11)
[2021-07-05] MEDS: Calcium Gluconate 1gm/50mL 1 GM/50 ML BAG IVPB PRN ×2 (05:11→14:28)
[2021-07-05] MEDS: *HR* Heparin 5,000 UNIT/ML VIAL IVP PRN ×2 (05:28→19:14)
[2021-07-05] MEDS: Potassium Phosphate 44 MEQ in 0.9 % Sodium Chloride 250 ML IVPB PRN (07:33)
[2021-07-05] MEDS: Insulin LISPRO 300 UNITS/3 ML VIAL SUBQ SCH ×5 (07:33→18:26)
[2021-07-05] MEDS: Piperacillin/Tazobactam 3.375 GM in 0.9 % Sodium Chloride Mini Bag 100 ML IVPB SCH ×3 (07:34→23:25)
[2021-07-05] MEDS: *HR* OxyCODONE Immed Rel 5 MG TABLET PO PRN ×2 (10:17→16:27)
[2021-07-05] MEDS: Vancomycin 1,250 MG/262.5 ML IV.SOLN IVPB SCH (11:10)
[2021-07-05] MEDS: Norepinephrine 4 MG/254 ML IV.SOLN IVC SCH (11:11)
[2021-07-05 11:21] LABS: VBG Ionized Calcium 1.08 mmol/L (1.15-1.35)
[2021-07-05 11:41] LABS: Magnesium 1.8 mg/dL (1.6-2.6); Phosphorous 3.3 mg/dL (2.7-4.5); Potassium 3.4 mEq/L (3.5-5.1)
[2021-07-05 12:48] LABS: Troponin I 0.43 ng/mL (< 0.04)
[2021-07-05] MEDS: Heparin 25,000UNIT/250ML 1/2NS 25,000 UNIT/250 ML IV.SOLN IVC SCH (14:30)
[2021-07-05] MEDS ORDERED: Lidocaine 2% Syringe 100 MG/5 ML IV ONE (14:38)
[2021-07-05] MEDS: D10% in Water 500 ML IVC SCH (17:31)
[2021-07-05] MEDS ORDERED: Sennosides/Docusate Sodium TABLET GTUBE PRN (20:14)
[2021-07-05] MEDS ORDERED: *HR* LORazepam 0.5 MG TABLET GTUBE PRN (20:14)
[2021-07-05] MEDS: OLANZapine 5 MG TAB.RAPDIS PO SCH (21:03)
[2021-07-05] MEDS: Aspirin Enteric Coated 81 MG Tablet PO SCH (21:50)
[2021-07-05] MEDS: Budesonide/Formoterol 160/4.5 1 PUFF INH IH SCH (22:59)
[2021-07-06] MEDS: Insulin LISPRO 300 UNITS/3 ML VIAL SUBQ SCH ×4 (00:25→21:23)
[2021-07-06] MEDS: Vancomycin 1,250 MG/262.5 ML IV.SOLN IVPB SCH (01:11)
[2021-07-06 03:15] LABS: Basophils % 0.2 %; Eosinophils # 0.2 K/mcL (0.0-0.6); Eosinophils % 1.6 %; Hematocrit 26.2 % (37.5-50.1); Hemoglobin 8.1 g/dL (12.9-16.9); Immature Granulocytes % 0.8 % (0-4); Lymphocytes # 1.2 K/mcL (0.6-4.6); Lymphocytes % 8.7 %; Mean Corpuscular HGB Conc 30.9 g/dL (31.6-35.5); Mean Corpuscular Hemoglobin 28.1 pg (28.0-33.3); Mean Platelet Volume 9.7 fL (9.4-12.4); Monocytes # 0.2 K/mcL (0.0-1.3); Monocytes % 1.8 %; Neutrophils # 11.6 K/mcL (1.6-8.9); Platelet Count 207 K/mcL (140-400); Red Blood Count 2.88 M/mcL (4.19-5.50); Red Cell Distribution Width 15.9 % (11.5-14.5); Segmented Neutrophils % 86.9 %; White Blood Count 13.3 K/mcL (4.3-11.1)
[2021-07-06 03:21] LABS: VBG Ionized Calcium 1.09 mmol/L (1.15-1.35)
[2021-07-06 03:37] LABS: Alanine Aminotransferase 48 Units/L (7-52); Albumin 2.4 g/dL (3.5-5.7); Albumin/Globulin Ratio 0.9 (1.1-2.2); Alkaline Phosphatase 262 Units/L (34-104); Aspartate Amino Transferase 32 Units/L (13-39); BUN/Creatinine Ratio 12 (6-26); Bilirubin,Direct 1.8 mg/dL (0.0-0.2); Bilirubin,Indirect 0.8 mg/dL (0.0-1.0); Bilirubin,Total 2.6 mg/dL (0.3-1.0); Blood Urea Nitrogen 12 mg/dL (6-20); C-Reactive Protein 169 mg/L (Less than 10); Calcium 7.2 mg/dL (8.6-10.3); Carbon Dioxide 19 mEq/L (23-29); Chloride 106 mEq/L (98-107); Globulin 2.7 g/dL (2.4-3.5); Glucose 618 mg/dL (70-105); Osmolality,Calculated 299 (280-300); Potassium 2.9 mEq/L (3.5-5.1); Sodium 130 mEq/L (136-145); Total Protein 5.1 g/dL (6.4-8.9); eGFR For African Americans > 60 (> 60); eGFR For Non-African Americans > 60 (> 60)
[2021-07-06 03:56] LABS: Platelet Estimate Normal (Normal)
[2021-07-06 04:11] LABS: Estimated Average Glucose 94 mg/dl; Hemoglobin A1C 4.9 %
[2021-07-06 04:43] LABS: BUN/Creatinine Ratio 12 (6-26); Blood Urea Nitrogen 12 mg/dL (6-20); Calcium 7.7 mg/dL (8.6-10.3); Carbon Dioxide 21 mEq/L (23-29); Chloride 113 mEq/L (98-107); Glucose 103 mg/dL (70-105); Osmolality,Calculated 286 (280-300); Phosphorous 2.1 mg/dL (2.7-4.5); Potassium 3.1 mEq/L (3.5-5.1); Sodium 138 mEq/L (136-145); eGFR For African Americans > 60 (> 60); eGFR For Non-African Americans > 60 (> 60)
[2021-07-06 04:44] LABS: VBG Ionized Calcium 1.12 mmol/L (1.15-1.35)
[2021-07-06] MEDS: Pantoprazole 40 MG VIAL IVP SCH ×2 (05:03→17:58)
[2021-07-06] MEDS: *HR* Heparin 5,000 UNIT/ML VIAL IVP PRN (05:03)
[2021-07-06] MEDS: Potassium Phosphate 44 MEQ in 0.9 % Sodium Chloride 250 ML IVPB PRN (05:43)
[2021-07-06] MEDS ORDERED: Regadenoson 0.4 MG/5 ML SYRINGE IVP ONE (06:27)
[2021-07-06] MEDS: Piperacillin/Tazobactam 3.375 GM in 0.9 % Sodium Chloride Mini Bag 100 ML IVPB SCH ×2 (07:42→17:58)
[2021-07-06] MEDS: Aspirin Enteric Coated 81 MG Tablet PO SCH (07:43)
[2021-07-06] MEDS: Norepinephrine 4 MG/254 ML IV.SOLN IVC SCH (07:43)
[2021-07-06] MEDS: traZODone 50 MG TABLET GTUBE SCH (07:43)
[2021-07-06] MEDS: Magnesium Oxide 400 MG TABLET GTUBE SCH (07:43)
[2021-07-06] MEDS: Thiamine (B-1) 100 MG TABLET GTUBE SCH (07:43)
[2021-07-06] MEDS: Heparin 25,000UNIT/250ML 1/2NS 25,000 UNIT/250 ML IV.SOLN IVC SCH (09:36)
[2021-07-06] MEDS: Budesonide/Formoterol 160/4.5 1 PUFF INH IH SCH ×2 (10:11→20:00)
[2021-07-06] MEDS ORDERED: Insulin LISPRO 300 UNITS/3 ML VIAL SUBQ SCH (11:30)
[2021-07-06] MEDS: *HR* OxyCODONE Immed Rel 5 MG TABLET PO PRN (11:34)
[2021-07-06] MEDS: D10% in Water 500 ML IVC SCH (11:35)
[2021-07-06] MEDS ORDERED: D5% in Water 1,000 ML IVC PRN (14:02)
[2021-07-06] MEDS ORDERED: Dextrose 4 GM Chewable Tablets PO PRN ×2 (14:02)
[2021-07-06] MEDS ORDERED: *HR* Dextrose 50 % in Water (Syg) 50 ML SYRINGE IVP PRN (14:02)
[2021-07-06] MEDS: Pregabalin 25 MG CAPSULE GTUBE SCH (21:23)
[2021-07-06] MEDS: OLANZapine 5 MG TAB.RAPDIS PO SCH (21:23)
[2021-07-07 03:57] LABS: Basophils % 0.3 %; Eosinophils # 0.2 K/mcL (0.0-0.6); Eosinophils % 1.9 %; Hematocrit 25.5 % (37.5-50.1); Hemoglobin 7.9 g/dL (12.9-16.9); Immature Granulocytes % 0.2 % (0-4); Lymphocytes % 11.3 %; Mean Corpuscular Volume 90.4 fL (83.0-100.0); Mean Platelet Volume 9.5 fL (9.4-12.4); Monocytes # 0.4 K/mcL (0.0-1.3); Monocytes % 4.3 %; Neutrophils # 7.5 K/mcL (1.6-8.9); Platelet Count 184 K/mcL (140-400); Red Blood Count 2.82 M/mcL (4.19-5.50); Red Cell Distribution Width 15.9 % (11.5-14.5); White Blood Count 9.2 K/mcL (4.3-11.1)
[2021-07-07 04:16] LABS: Alanine Aminotransferase 37 Units/L (7-52); Albumin 2.3 g/dL (3.5-5.7); Albumin/Globulin Ratio 0.8 (1.1-2.2); Alkaline Phosphatase 273 Units/L (34-104); Aspartate Amino Transferase 26 Units/L (13-39); BUN/Creatinine Ratio 9 (6-26); Bilirubin,Direct 1.8 mg/dL (0.0-0.2); Bilirubin,Indirect 0.7 mg/dL (0.0-1.0); Bilirubin,Total 2.5 mg/dL (0.3-1.0); Blood Urea Nitrogen 9 mg/dL (6-20); Calcium 7.1 mg/dL (8.6-10.3); Carbon Dioxide 19 mEq/L (23-29); Chloride 107 mEq/L (98-107); Globulin 2.8 g/dL (2.4-3.5); Glucose 534 mg/dL (70-105); Magnesium 1.9 mg/dL (1.6-2.6); Osmolality,Calculated 301 (280-300); Phosphorous 2.2 mg/dL (2.7-4.5); Potassium 2.8 mEq/L (3.5-5.1); Sodium 134 mEq/L (136-145); Total Protein 5.1 g/dL (6.4-8.9); eGFR For African Americans > 60 (> 60); eGFR For Non-African Americans > 60 (> 60)
[2021-07-07] MEDS: Pantoprazole 40 MG VIAL IVP SCH ×2 (05:33→16:46)
[2021-07-07 05:49] LABS: BUN/Creatinine Ratio 9 (6-26); Blood Urea Nitrogen 9 mg/dL (6-20); Calcium 7.8 mg/dL (8.6-10.3); Carbon Dioxide 20 mEq/L (23-29); Chloride 112 mEq/L (98-107); Glucose 82 mg/dL (70-105); Osmolality,Calculated 284 (280-300); Potassium 3.1 mEq/L (3.5-5.1); Sodium 138 mEq/L (136-145); eGFR For African Americans > 60 (> 60); eGFR For Non-African Americans > 60 (> 60)
[2021-07-07] MEDS: Budesonide/Formoterol 160/4.5 1 PUFF INH IH SCH ×2 (07:19→22:39)
[2021-07-07] MEDS: Insulin LISPRO 300 UNITS/3 ML VIAL SUBQ SCH ×4 (07:29→20:40)
[2021-07-07] MEDS ORDERED: Potassium Phosphate 44 MEQ in 0.9 % Sodium Chloride 250 ML IVPB ONE (07:29)
[2021-07-07] MEDS: Piperacillin/Tazobactam 3.375 GM in 0.9 % Sodium Chloride Mini Bag 100 ML IVPB SCH ×3 (07:36→16:45)
[2021-07-07] MEDS: Pregabalin 25 MG CAPSULE GTUBE SCH (07:36)
[2021-07-07] MEDS: Thiamine (B-1) 100 MG TABLET GTUBE SCH (07:36)
[2021-07-07] MEDS: Magnesium Oxide 400 MG TABLET GTUBE SCH (07:36)
[2021-07-07] MEDS: Aspirin Enteric Coated 81 MG Tablet PO SCH (07:36)
[2021-07-07] MEDS: traZODone 50 MG TABLET GTUBE SCH (07:37)
[2021-07-07] MEDS: D10% in Water 500 ML IVC SCH (07:44)
[2021-07-07] MEDS ORDERED: Ferrous Sulfate Oral Soln 300 MG/5 ML UDC GTUBE SCH (11:00)
[2021-07-07] MEDS ORDERED: Mirtazapine 15 MG TABLET GTUBE SCH (21:00)
[2021-07-07] MEDS ORDERED: *HR* LORazepam 0.5 MG TABLET PO PRN (21:30)
[2021-07-07] MEDS ORDERED: Sennosides/Docusate Sodium TABLET PO PRN (21:45)
[2021-07-07] MEDS: OLANZapine 5 MG TAB.RAPDIS PO SCH (21:47)
[2021-07-07] MEDS: Mirtazapine 15 MG TABLET PO SCH (21:48)
[2021-07-07] MEDS: Pregabalin 25 MG CAPSULE PO SCH (21:48)
[2021-07-07] MEDS: *HR* OxyCODONE Immed Rel 5 MG TABLET PO PRN (21:54)
[2021-07-08] MEDS: Piperacillin/Tazobactam 3.375 GM in 0.9 % Sodium Chloride Mini Bag 100 ML IVPB SCH ×4 (00:36→17:14)
[2021-07-08 04:32] LABS: Basophils % 0.2 %; Eosinophils # 0.2 K/mcL (0.0-0.6); Eosinophils % 2.6 %; Hematocrit 28.5 % (37.5-50.1); Hemoglobin 9.1 g/dL (12.9-16.9); Immature Granulocytes % 0.4 % (0-4); Lymphocytes # 1.4 K/mcL (0.6-4.6); Lymphocytes % 16.1 %; Mean Corpuscular HGB Conc 31.9 g/dL (31.6-35.5); Mean Corpuscular Volume 87.7 fL (83.0-100.0); Mean Platelet Volume 9.5 fL (9.4-12.4); Monocytes # 0.7 K/mcL (0.0-1.3); Monocytes % 8.2 %; Neutrophils # 6.1 K/mcL (1.6-8.9); Platelet Count 183 K/mcL (140-400); Red Blood Count 3.25 M/mcL (4.19-5.50); Red Cell Distribution Width 15.6 % (11.5-14.5); Segmented Neutrophils % 72.5 %; White Blood Count 8.4 K/mcL (4.3-11.1)
[2021-07-08] MEDS: Pantoprazole 40 MG VIAL IVP SCH (04:41)
[2021-07-08] MEDS: D10% in Water 500 ML IVC SCH ×3 (04:50→15:00)
[2021-07-08 04:53] LABS: Alanine Aminotransferase 38 Units/L (7-52); Albumin 2.7 g/dL (3.5-5.7); Albumin/Globulin Ratio 0.8 (1.1-2.2); Alkaline Phosphatase 349 Units/L (34-104); Aspartate Amino Transferase 32 Units/L (13-39); BUN/Creatinine Ratio 7 (6-26); Bilirubin,Direct 1.3 mg/dL (0.0-0.2); Bilirubin,Indirect 0.8 mg/dL (0.0-1.0); Bilirubin,Total 2.1 mg/dL (0.3-1.0); Blood Urea Nitrogen 7 mg/dL (6-20); Carbon Dioxide 20 mEq/L (23-29); Chloride 112 mEq/L (98-107); Globulin 3.2 g/dL (2.4-3.5); Glucose 83 mg/dL (70-105); Magnesium 2.1 mg/dL (1.6-2.6); Osmolality,Calculated 285 (280-300); Phosphorous 3.2 mg/dL (2.7-4.5); Potassium 3.3 mEq/L (3.5-5.1); Sodium 139 mEq/L (136-145); Total Protein 5.9 g/dL (6.4-8.9); eGFR For African Americans > 60 (> 60); eGFR For Non-African Americans > 60 (> 60)
[2021-07-08] MEDS: Insulin LISPRO 300 UNITS/3 ML VIAL SUBQ SCH ×4 (07:28→20:48)
[2021-07-08] MEDS: Budesonide/Formoterol 160/4.5 1 PUFF INH IH SCH ×2 (07:36→21:14)
[2021-07-08] MEDS: Aspirin Enteric Coated 81 MG Tablet PO SCH (09:26)
[2021-07-08] MEDS: Thiamine (B-1) 100 MG TABLET PO SCH (09:26)
[2021-07-08] MEDS: traZODone 50 MG TABLET PO SCH (09:27)
[2021-07-08] MEDS: Pregabalin 25 MG CAPSULE PO SCH ×2 (09:27→21:43)
[2021-07-08] MEDS: Magnesium Oxide 400 MG TABLET PO SCH (09:28)
[2021-07-08] MEDS ORDERED: Morphine Sulfate 2 MG/ML SYRINGE IVP ONE (12:23)
[2021-07-08] MEDS: Ipratropium/Albuterol Neb 3 ML IH SCH ×3 (15:32→21:14)
[2021-07-08] MEDS: Mirtazapine 15 MG TABLET PO SCH (21:43)
[2021-07-08] MEDS: OLANZapine 5 MG TAB.RAPDIS PO SCH (21:43)
[2021-07-09] MEDS: Piperacillin/Tazobactam 3.375 GM in 0.9 % Sodium Chloride Mini Bag 100 ML IVPB SCH ×2 (00:12→07:51)
[2021-07-09] MEDS: Ipratropium/Albuterol Neb 3 ML IH SCH ×4 (04:13→21:40)
[2021-07-09 05:32] LABS: Basophils % 0.3 %; Eosinophils # 0.2 K/mcL (0.0-0.6); Eosinophils % 2.1 %; Hematocrit 30.3 % (37.5-50.1); Hemoglobin 9.5 g/dL (12.9-16.9); Immature Granulocytes % 0.4 % (0-4); Lymphocytes # 2.2 K/mcL (0.6-4.6); Lymphocytes % 24.5 %; Mean Corpuscular HGB Conc 31.4 g/dL (31.6-35.5); Mean Corpuscular Hemoglobin 27.5 pg (28.0-33.3); Mean Corpuscular Volume 87.8 fL (83.0-100.0); Mean Platelet Volume 9.9 fL (9.4-12.4); Monocytes # 0.8 K/mcL (0.0-1.3); Monocytes % 8.9 %; Neutrophils # 5.8 K/mcL (1.6-8.9); Platelet Count 220 K/mcL (140-400); Red Blood Count 3.45 M/mcL (4.19-5.50); Red Cell Distribution Width 15.9 % (11.5-14.5); Segmented Neutrophils % 63.8 %; White Blood Count 9.1 K/mcL (4.3-11.1)
[2021-07-09 05:45] LABS: Alanine Aminotransferase 34 Units/L (7-52); Albumin 2.7 g/dL (3.5-5.7); Albumin/Globulin Ratio 0.8 (1.1-2.2); Alkaline Phosphatase 378 Units/L (34-104); Aspartate Amino Transferase 28 Units/L (13-39); BUN/Creatinine Ratio 7 (6-26); Bilirubin,Direct 0.8 mg/dL (0.0-0.2); Bilirubin,Indirect 0.8 mg/dL (0.0-1.0); Bilirubin,Total 1.6 mg/dL (0.3-1.0); Blood Urea Nitrogen 6 mg/dL (6-20); Calcium 8.2 mg/dL (8.6-10.3); Carbon Dioxide 23 mEq/L (23-29); Chloride 107 mEq/L (98-107); Globulin 3.4 g/dL (2.4-3.5); Glucose 306 mg/dL (70-105); Osmolality,Calculated 289 (280-300); Phosphorous 2.7 mg/dL (2.7-4.5); Potassium 3.6 mEq/L (3.5-5.1); Sodium 135 mEq/L (136-145); Total Protein 6.1 g/dL (6.4-8.9); eGFR For African Americans > 60 (> 60); eGFR For Non-African Americans > 60 (> 60)
[2021-07-09] MEDS: Insulin LISPRO 300 UNITS/3 ML VIAL SUBQ SCH ×4 (06:56→20:36)
[2021-07-09] MEDS: traZODone 50 MG TABLET PO SCH (07:51)
[2021-07-09] MEDS: Pregabalin 25 MG CAPSULE PO SCH ×2 (07:51→22:00)
[2021-07-09] MEDS: Magnesium Oxide 400 MG TABLET PO SCH (07:51)
[2021-07-09] MEDS: Aspirin Enteric Coated 81 MG Tablet PO SCH (07:51)
[2021-07-09] MEDS: Thiamine (B-1) 100 MG TABLET PO SCH (07:51)
[2021-07-09] MEDS ORDERED: Furosemide 20 MG/2 ML VIAL IVP ONE (07:57)
[2021-07-09] MEDS: Budesonide/Formoterol 160/4.5 1 PUFF INH IH SCH ×2 (11:01→21:40)
[2021-07-09] MEDS: Ertapenem 1,000 MG in 0.9 % Sodium Chloride Mini Bag 100 ML IVPB SCH (16:06)
[2021-07-09] MEDS: Pregabalin 25 MG CAPSULE GTUBE SCH (19:19)
[2021-07-09] MEDS: Mirtazapine 15 MG TABLET PO SCH (22:00)
[2021-07-09] MEDS: OLANZapine 5 MG TAB.RAPDIS PO SCH (22:01)
[2021-07-10] MEDS: Ipratropium/Albuterol Neb 3 ML IH SCH ×4 (03:49→22:43)
[2021-07-10 05:49] LABS: Basophils # 0.1 K/mcL (0.0-0.2); Basophils % 0.5 %; Eosinophils # 0.2 K/mcL (0.0-0.6); Eosinophils % 1.9 %; Hematocrit 31.1 % (37.5-50.1); Immature Granulocytes % 0.5 % (0-4); Lymphocytes # 1.9 K/mcL (0.6-4.6); Lymphocytes % 19.6 %; Mean Corpuscular HGB Conc 32.2 g/dL (31.6-35.5); Mean Corpuscular Hemoglobin 27.7 pg (28.0-33.3); Mean Corpuscular Volume 86.1 fL (83.0-100.0); Mean Platelet Volume 9.9 fL (9.4-12.4); Monocytes % 10.1 %; Neutrophils # 6.6 K/mcL (1.6-8.9); Platelet Count 283 K/mcL (140-400); Red Blood Count 3.61 M/mcL (4.19-5.50); Red Cell Distribution Width 15.8 % (11.5-14.5); Segmented Neutrophils % 67.4 %; White Blood Count 9.8 K/mcL (4.3-11.1)
[2021-07-10 06:11] LABS: Alanine Aminotransferase 31 Units/L (7-52); Albumin/Globulin Ratio 0.8 (1.1-2.2); Alkaline Phosphatase 406 Units/L (34-104); Aspartate Amino Transferase 26 Units/L (13-39); BUN/Creatinine Ratio 7 (6-26); Bilirubin,Direct 0.6 mg/dL (0.0-0.2); Bilirubin,Indirect 0.7 mg/dL (0.0-1.0); Bilirubin,Total 1.3 mg/dL (0.3-1.0); Blood Urea Nitrogen 7 mg/dL (6-20); Calcium 8.4 mg/dL (8.6-10.3); Carbon Dioxide 24 mEq/L (23-29); Chloride 107 mEq/L (98-107); Globulin 3.6 g/dL (2.4-3.5); Glucose 81 mg/dL (70-105); Osmolality,Calculated 285 (280-300); Phosphorous 3.5 mg/dL (2.7-4.5); Potassium 3.1 mEq/L (3.5-5.1); Sodium 139 mEq/L (136-145); Total Protein 6.6 g/dL (6.4-8.9); eGFR For African Americans > 60 (> 60); eGFR For Non-African Americans > 60 (> 60)
[2021-07-10] MEDS: Insulin LISPRO 300 UNITS/3 ML VIAL SUBQ SCH ×4 (07:29→23:33)
[2021-07-10] MEDS: Magnesium Oxide 400 MG TABLET PO SCH (07:59)
[2021-07-10] MEDS: traZODone 50 MG TABLET PO SCH (07:59)
[2021-07-10] MEDS: Thiamine (B-1) 100 MG TABLET PO SCH (07:59)
[2021-07-10] MEDS: Aspirin Enteric Coated 81 MG Tablet PO SCH (07:59)
[2021-07-10] MEDS: Pregabalin 25 MG CAPSULE PO SCH ×2 (08:02→21:46)
[2021-07-10] MEDS: Budesonide/Formoterol 160/4.5 1 PUFF INH IH SCH ×2 (10:00→22:43)
[2021-07-10] MEDS: Ertapenem 1,000 MG in 0.9 % Sodium Chloride Mini Bag 100 ML IVPB SCH (17:04)
[2021-07-10] MEDS: OLANZapine 5 MG TAB.RAPDIS PO SCH (21:46)
[2021-07-10] MEDS: Mirtazapine 15 MG TABLET PO SCH (21:47)
[2021-07-11] MEDS: Ipratropium/Albuterol Neb 3 ML IH SCH ×3 (03:41→16:15)
[2021-07-11 05:52] LABS: Basophils # 0.1 K/mcL (0.0-0.2); Basophils % 0.7 %; Eosinophils # 0.4 K/mcL (0.0-0.6); Eosinophils % 3.9 %; Hematocrit 32.4 % (37.5-50.1); Hemoglobin 10.2 g/dL (12.9-16.9); Immature Granulocytes % 0.6 % (0-4); Lymphocytes # 1.9 K/mcL (0.6-4.6); Lymphocytes % 17.6 %; Mean Corpuscular HGB Conc 31.5 g/dL (31.6-35.5); Mean Corpuscular Hemoglobin 27.6 pg (28.0-33.3); Mean Corpuscular Volume 87.6 fL (83.0-100.0); Mean Platelet Volume 9.7 fL (9.4-12.4); Monocytes # 0.9 K/mcL (0.0-1.3); Monocytes % 8.2 %; Neutrophils # 7.3 K/mcL (1.6-8.9); Platelet Count 288 K/mcL (140-400); White Blood Count 10.5 K/mcL (4.3-11.1)
[2021-07-11 06:12] LABS: Alanine Aminotransferase 31 Units/L (7-52); Albumin/Globulin Ratio 0.8 (1.1-2.2); Alkaline Phosphatase 469 Units/L (34-104); Aspartate Amino Transferase 33 Units/L (13-39); BUN/Creatinine Ratio 9 (6-26); Bilirubin,Direct 0.5 mg/dL (0.0-0.2); Bilirubin,Indirect 0.7 mg/dL (0.0-1.0); Bilirubin,Total 1.2 mg/dL (0.3-1.0); Blood Urea Nitrogen 8 mg/dL (6-20); Calcium 8.5 mg/dL (8.6-10.3); Carbon Dioxide 24 mEq/L (23-29); Chloride 107 mEq/L (98-107); Globulin 3.7 g/dL (2.4-3.5); Glucose 77 mg/dL (70-105); Osmolality,Calculated 283 (280-300); Phosphorous 3.4 mg/dL (2.7-4.5); Potassium 3.5 mEq/L (3.5-5.1); Sodium 138 mEq/L (136-145); Total Protein 6.7 g/dL (6.4-8.9); eGFR For African Americans > 60 (> 60); eGFR For Non-African Americans > 60 (> 60)
[2021-07-11 06:35] VITALS: TEMP 98
[2021-07-11] MEDS: Insulin LISPRO 300 UNITS/3 ML VIAL SUBQ SCH ×3 (07:39→16:43)
[2021-07-11] MEDS: Magnesium Oxide 400 MG TABLET PO SCH (09:57)
[2021-07-11] MEDS: Pregabalin 25 MG CAPSULE PO SCH (09:57)
[2021-07-11] MEDS: Aspirin Enteric Coated 81 MG Tablet PO SCH (09:58)
[2021-07-11] MEDS: Thiamine (B-1) 100 MG TABLET PO SCH (09:58)
[2021-07-11] MEDS: traZODone 50 MG TABLET PO SCH (09:58)
[2021-07-11] MEDS: Budesonide/Formoterol 160/4.5 1 PUFF INH IH SCH (11:03)
[2021-07-11] MEDS ORDERED: DAPTOmycin 500 MG in 0.9 % Sodium Chloride 100 ML IVPB SCH (15:00)
[2021-07-11] MEDS: Ertapenem 1,000 MG in 0.9 % Sodium Chloride Mini Bag 100 ML IVPB SCH (16:19)
[2021-07-11 16:33] VITALS: BP 126/76; PULSE 72; O2SAT 91
[2021-07-12 09:34] LABS: Creatine Kinase 20 Units/L (30-223)
== END 2021-07-11 19:50 | DRG 698 ==
LOC: ICNU → SUATTDRO 11:19 → 2ANU 07-06 13:27
PROVIDERS: ADMIT Internal Medicine; ATTEND Internal Medicine
PROC: IRDRAIN (2021-07-08 12:00)